=== PATIENT | female | born 1965 ===

== ENCOUNTER 2016-12-18 20:57 | Emergency (ER) | payer MEDICAID, OTHER ==
[2016-12-18 21:02] VITALS: BP 145/90; PULSE 92; RESP 16; TEMP 98.1; O2SAT 98
--- NOTE | 2016-12-18 21:39 | ED PDOC ---
HPI: CCC, URI, Sore Throat Time Seen by Provider: 12/18/16 21:00 Chief Complaint (Nursing): ENT Problem Chief Complaint (Provider): B/l ear pain History Per: Patient History/Exam Limitations: no limitations Onset/Duration Of Symptoms: Days Current Symptoms Are (Timing): Still Present Location Of Pain: Ear(s) Additional History Per: Patient Additional Complaint(s): The patient is a 50yo female, past medical history of brain cancer, presents to the ED for evaluation of b/l ear pain, worse in her left ear for the past day. Patient denies any associated fever, chills. She states she has not visited her PCP for her symptoms. Patient offers no additional medical complaints. Past Medical History Reviewed: Historical Data, Nursing Documentation, Vital Signs Vital Signs: Last Vital Signs Temp 98.1 F 12/18/16 21:00 Pulse 92 H 12/18/16 21:00 Resp 16 12/18/16 21:00 BP 145/90 12/18/16 21:00 Pulse Ox 98 12/18/16 21:52 - Medical History PMH: Migraine - Surgical History Surgical History: No Surg Hx - Family History Family History: States: Unknown Family Hx - Home Medications Home Medications: Ambulatory Orders Medication Instructions Recorded Ciprofloxacin/Hydrocortisone 10 ml XX BID 7 Days 12/18/16 [Cipro Hc 0.2%-1% 10 ml] - Allergies Allergies/Adverse Reactions: Allergies Allergy/AdvReac Type Severity Reaction Status Date / Time No Known Allergies Allergy Verified 12/18/16 21:02 Review of Systems ROS Statement: Except As Marked, All Systems Reviewed And Found Negative Constitutional: Negative for: Fever, Chills ENT: Positive for: Ear Pain (b/l) Physical Exam - Reviewed Nursing Documentation Reviewed: Yes Vital Signs Reviewed: Yes - Physical Exam Appears: Positive for: Well, Non-toxic, No Acute Distress Head Exam: Positive for: ATRAUMATIC, NORMAL INSPECTION, NORMOCEPHALIC Skin: Positive for: Normal Color, Warm, DRY Eye Exam: Positive for: EOMI, Normal appearance, PERRL ENT: Positive for: TM Is/Are (clear b/l), Other (+ pinnal and tragal tug bilaterally) Neck: Positive for: Normal, Supple Cardiovascular/Chest: Positive for: Regular Rate, Rhythm Respiratory: Positive for: Normal Breath Sounds. Negative for: Respiratory Distress Neurologic/Psych: Positive for: Alert, Oriented. Negative for: Motor/Sensory Deficits - ECG O2 Sat by Pulse Oximetry: 98 (RA) Pulse Ox Interpretation: Normal Medical Decision Making Medical Decision Making: Time: 2114 Impression: Otitis externa Plan: -- Patient to be given prescriptions for antibiotic ear drops and informed to follow up with PCP. Stable for d/c home. Scribe Attestation: Documented by Lucretia Lynne acting as a scribe for GRU[facility] Salgado Provider Attestation: All medical record entries made by the Scribe were at my direction and personally dictated by me. I have reviewed the chart and agree that the record accurately reflects my personal performance of the history, physical exam, medical decision making, and the department course for this patient. I have also personally directed, reviewed, and agree with the discharge instructions and disposition. Disposition - Clinical Impression Clinical Impression: Otitis externa - Patient ED Disposition Is Patient to be Admitted: No - Disposition Disposition Time: 22:04 Condition: GOOD Prescriptions: Ciprofloxacin/Hydrocortisone [Cipro Hc 0.2%-1% 10 ml] 10 ml XX BID 7 Days Instructions: Otitis Externa (ED) Forms: [employer] (Icelandic)
== END 2016-12-18 21:54 | disposition home or self-care (01) ==
LOC: H.ER 20:57
DX: H60.90 Unspecified otitis externa, unspecified ear (principal)

== ENCOUNTER 2016-12-20 17:57 | Emergency (ER) | payer MEDICAID ==
[2016-12-20 18:29] VITALS: BP 151/71; PULSE 70; RESP 16; TEMP 98.2; O2SAT 99
--- NOTE | 2016-12-20 18:49 | ED PDOC ---
HPI: CCC, URI, Sore Throat Chief Complaint (Nursing): ENT Problem Chief Complaint (Provider): Bilateral ear pain History Per: Patient History/Exam Limitations: no limitations Onset/Duration Of Symptoms: Days (x1 year), Worse Since (x3 days) Current Symptoms Are (Timing): Still Present Location Of Pain: Ear(s) Associated Symptoms: Other (headache) Ear Symptoms: Bilateral: Ear Pain Additional Complaint(s): Brunilda Gomez is a 50 year old female, with a past medical history of migraines and tumor growth on right parietal, who presents to the emergency department complaining of bilateral ear pain onset for 1 year but symptoms worsen 3 days ago. Patient reports pain is associated with severe headache, and face swelling but denies any drainage from ear. She states she was seen by an ENT doctor, who gave her antibiotic drops for her ear but with no alleviation of symptoms. PMD: None provided. Past Medical History Reviewed: Historical Data, Nursing Documentation, Vital Signs Vital Signs: Last Vital Signs Temp 98.2 F 12/20/16 18:04 Pulse 70 12/20/16 18:04 Resp 16 12/20/16 18:04 BP 151/71 H 12/20/16 18:04 Pulse Ox 99 12/20/16 19:01 - Medical History PMH: Migraine - Family History Family History: States: Unknown Family Hx - Home Medications Home Medications: Ambulatory Orders Medication Instructions Recorded Ciprofloxacin/Hydrocortisone 10 ml XX BID 7 Days 12/18/16 [Cipro Hc 0.2%-1% 10 ml] Amoxicillin/Clavulanate [Augmentin 1 tab PO BID #14 tab 12/20/16 875 MG-125 MG] Methylprednisolone [Medrol Dose 4 mg PO DAILY #21 mg 12/20/16 Pack (21 tabs)] - Allergies Allergies/Adverse Reactions: Allergies Allergy/AdvReac Type Severity Reaction Status Date / Time No Known Allergies Allergy Verified 12/20/16 18:03 Review of Systems ROS Statement: Except As Marked, All Systems Reviewed And Found Negative ENT: Positive for: Ear Pain, Other (Face swelling). Negative for: Ear Discharge Physical Exam - Reviewed Nursing Documentation Reviewed: Yes Vital Signs Reviewed: Yes - Physical Exam Appears: Positive for: Well, Non-toxic, No Acute Distress Head Exam: Positive for: ATRAUMATIC, NORMAL INSPECTION, NORMOCEPHALIC Skin: Positive for: Normal Color, Warm, Dry Eye Exam: Positive for: Normal appearance ENT: Positive for: Other (b/l ear and canal swelling. Pinna tenderness and swelling on left side anteriorly. Significant mastoid tenderness on left side more than right. ) Neck: Positive for: Normal Respiratory: Positive for: Normal Breath Sounds. Negative for: Respiratory Distress Neurologic/Psych: Positive for: Alert, Oriented - Laboratory Results Result Diagrams: 12/20/16 18:53 12/20/16 18:53 - ECG O2 Sat by Pulse Oximetry: 99 (RA) Pulse Ox Interpretation: Normal Medical Decision Making Medical Decision Making: Initial Impression: Initial Plan: --Mastoid w/ contrast [CT] --Maxillofacial w/ contrast [CT] --Comp Metabolic Panel --Urine --CBC w/ differential --reevaluation CT shows: FINDINGS: Sella: Unremarkable. Mastoid air cells: Minimal fluid within LEFT mastoid. Auditory system: Soft tissue thickening along external auditory canal. Fluid within LEFT middle ear cavity. Bones/joints: No acute fracture. No definite cortical destruction. Soft tissues: Unremarkable. IMPRESSION: 1. Findings compatible with otitis media/otitis externa/early mastoiditis. 2. Incidental/non-acute findings are described abo Pt givne Rocephin IV in ED Pt with stable VS in ED, no acute elevation of WBC and unremarkable CMP. Pt will need to f.u with ENT for chronic otitis and will be d.c on augmenting for ear infection and ofloxacin. Pt will be given medrol dose pack. at d.c pt stable Scribe Attestation: Documented by Fredrick Zuinga, acting as a scribe for Nadege LOMBARDO. Provider Scribe Attestation: All medical record entries made by the Scribe were at my direction and personally dictated by me. I have reviewed the chart and agree that the record accurately reflects my personal performance of the history, physical exam, medical decision making, and the department course for this patient. I have also personally directed, reviewed, and agree with the discharge instructions and disposition. Disposition - Clinical Impression Clinical Impression: Otitis externa, Otitis media - Patient ED Disposition Is Patient to be Admitted: No Counseled Patient/Family Regarding: Studies Performed, Diagnosis, Need For Followup, Rx Given - Disposition Referrals: [facility] [Outside] [facility] [Outside] [facility] [Provider Group] Disposition: Routine/Home Disposition Time: 22:47 Condition: STABLE Prescriptions: Amoxicillin/Clavulanate [Augmentin 875 MG-125 MG] 1 tab PO BID #14 tab Methylprednisolone [Medrol Dose Pack (21 tabs)] 4 mg PO DAILY #21 mg Instructions: Mastoiditis (ED) Forms: [employer] (Belarusian)
[2016-12-20 19:04] LABS: BASO % 0.6 % (0.0-2.0); EOS # 0.1 K/uL (0.0-0.7); EOS % 1.2 % (0.0-4.0); HEMOGLOBIN 14.2 g/dL (12.0-16.0); LYMPH # 1.5 K/uL (1.0-4.3); LYMPH % 17.7 % (20.0-40.0); MEAN CELL VOLUME 90.1 fl (81.0-99.0); MEAN CORPUSCULAR HEMOGLOBIN 31.1 pg (27.0-31.0); MEAN CORPUSCULAR HGB CONC 34.6 g/dL (33.0-37.0); MEAN PLATELET VOLUME 10.4 fl (7.2-11.7); MONO # 0.5 K/uL (0.0-0.8); MONO % 6.1 % (0.0-10.0); NEUT # 6.3 K/uL (1.8-7.0); NEUT % 74.4 % (50.0-75.0); NRBC % 0.1 % (0.0-0.0); RBC 4.55 Mil/uL (3.80-5.20); RED CELL DISTRIBUTION WIDTH 13.3 % (11.5-14.5); WHITE BLOOD COUNT 8.4 K/uL (4.8-10.8)
[2016-12-20 19:26] LABS: ALB/GLOB RATIO 1.2 (1.0-2.1); ALBUMIN 4.4 g/dL (3.5-5.0); ALT/SGPT 42 U/L (9-52); AST/SGOT 29 U/L (14-36); BLOOD UREA NITROGEN 18 mg/dl (7-17); CALCIUM 9.2 mg/dL (8.4-10.2); GFR AFRICAN-AMERICAN > 60; GFR NON-AFRICAN AMERICAN > 60
[2016-12-20] MEDS ORDERED: Iohexol 300 100 ML IJ ONE (19:50)
[2016-12-20] MEDS ORDERED: Sodium Chloride 0.9% 50 ML IV ONE (19:50)
--- NOTE | 2016-12-20 21:22 | CT ---
EXAM: CT Orbits, Sella, Posterior Fossa or Auditory System Intravenous Contrast CLINICAL HISTORY: 50 years old, female; Pain; Other: Left ear pain; Additional info: Ear swelling mastoid tender TECHNIQUE: Axial computed tomography images of the orbits, sella, posterior fossa or auditory system with intravenous contrast. All CT scans at this facility use one or more dose reduction techniques, viz.: automated exposure control; ma/kV adjustment per patient size (including targeted exams where dose is matched to indication; i.e. head); or iterative reconstruction technique. Coronal and sagittal reformatted images were created and reviewed. CONTRAST: 50 mL of omnipaque administered intravenously. COMPARISON: No relevant prior studies available. FINDINGS: Sella: Unremarkable. Mastoid air cells: Minimal fluid within LEFT mastoid. Auditory system: Soft tissue thickening along external auditory canal. Fluid within LEFT middle ear cavity. Bones/joints: No acute fracture. No definite cortical destruction. Soft tissues: Unremarkable. IMPRESSION: 1. Findings compatible with otitis media/otitis externa/early mastoiditis. 2. Incidental/non-acute findings are described above.
--- NOTE | 2016-12-20 21:27 | CT ---
EXAM: CT Maxillofacial With Intravenous Contrast CLINICAL HISTORY: 50 years old, female; Pain; Face pain; Additional info: Swelling to left side of face TECHNIQUE: Axial computed tomography images of the face with intravenous contrast. All CT scans at this facility use one or more dose reduction techniques, viz.: automated exposure control; ma/kV adjustment per patient size (including targeted exams where dose is matched to indication; i.e. head); or iterative reconstruction technique. Coronal and sagittal reformatted images were created and reviewed. CONTRAST: 50 mL of omnipaque administered intravenously. COMPARISON: No relevant prior studies available. FINDINGS: Bones/joints: No acute fracture. No definite cortical destruction. Soft tissues: Unremarkable. Orbits: Unremarkable as visualized. Sinuses: Unremarkable. No air-fluid levels. Mastoid air cells: Minimal fluid within LEFT mastoid. Auditory system: Fluid within LEFT middle ear cavity. Soft tissue thickening along LEFT external auditory canal. Oropharynx: Torus palatinus. No significant tonsillar enlargement. IMPRESSION: 1. Findings compatible with otitis media/otitis externa/early mastoiditis. 2. Incidental/non-acute findings are described above.
[2016-12-20] MEDS ORDERED: cefTRIAXone (Rocephin) 1 gm Inj ONE (21:45)
== END 2016-12-20 23:04 | disposition home or self-care (01) ==
LOC: H.ER 17:57
DX: H60.93 Unspecified otitis externa, bilateral (principal)

== ENCOUNTER 2017-07-10 14:28 | Observation (INO) | payer MEDICAID ==
--- NOTE | 2017-07-10 16:13 | ED PDOC ---
HPI: Headache Time Seen by Provider: 07/10/17 15:47 Chief Complaint (Nursing): Headache Chief Complaint (Provider): Headache History Per: Patient History/Exam Limitations: no limitations Onset/Duration Of Symptoms: Days (x 5) Additional Complaint(s): Brunilda is a 51 y/o female with a history of headaches and a meningioma of the brain who presents to the ED complaining of a headache and dizziness that started 5 days ago. Patient states that the headache came on gradually and has gotten progressively worse since onset. She has associated lightheadedness and intermittent vomiting, but denies difficulty walking, numbness, weakness, vision change, photophobia, or fever. Patient gets regular MRIs every 6 months since diagnosis of her meningioma. She states she has had similar headaches in the past but this one is stronger, though not the worst of her life and not sudden. She has been taking advil for the pain which provides some, but not complete, relief. PMD: [facility] NIHSS Stroke Scale - Date/Time Evaluation Performed Date Performed: 07/11/17 Time Performed: 15:55 - How Severe is the Stroke Level of Consciousness: 0=Alert LOC to Questions: 0=Both comments correct LOC to commands: 0=Obeys both correctly Best Gaze: 0=Normal Visual: 0=No visual loss Facial: 0=Normal Motor Arm - Left: 0=No drift Motor Arm - Right: 0=No drift Motor Leg - Left: 0=No drift Motor Leg - Right: 0=No drift Limb Ataxia: 0=Absent Sensory: 0=Normal Best Language: 0=No aphasia Dysarthia: 0=Normal articulation Extinction & Inattention (Neglect): 0=Normal, no object Score: 0 Severity Of Stroke: 0 = No Stroke Past Medical History Reviewed: Historical Data, Nursing Documentation, Vital Signs Vital Signs: Last Vital Signs Temp 97 F L 07/10/17 14:35 Pulse 75 07/10/17 14:35 Resp 16 07/10/17 14:35 BP 132/73 07/10/17 14:35 Pulse Ox 97 07/10/17 14:35 - Medical History PMH: Migraine Other PMH: Meningioma brain - Surgical History Surgical History: No Surg Hx - Family History Family History: States: Unknown Family Hx - Social History Current smoker - smoking cessation education provided: No Alcohol: None Drugs: Denies - Home Medications Home Medications: Ambulatory Orders Medication Instructions Recorded Aspirin 325 mg PO DAILY #30 tab 07/11/17 Atorvastatin [Lipitor] 10 mg PO DAILY #30 tab 07/11/17 Dexamethasone [Decadron] 1 mg PO DAILY #14 tab 07/11/17 - Allergies Allergies/Adverse Reactions: Allergies Allergy/AdvReac Type Severity Reaction Status Date / Time No Known Allergies Allergy Verified 07/10/17 14:34 Review of Systems ROS Statement: Except As Marked, All Systems Reviewed And Found Negative Constitutional: Negative for: Fever Eyes: Negative for: Vision Change, Other (photophobia) Gastrointestinal: Positive for: Vomiting Neurological: Positive for: Headache, Dizziness, Other (lightheadedness). Negative for: Weakness, Numbness, Incoordination Physical Exam - Reviewed Nursing Documentation Reviewed: Yes Vital Signs Reviewed: Yes - Physical Exam Appears: Positive for: Well, Non-toxic, No Acute Distress Head Exam: Positive for: ATRAUMATIC, NORMAL INSPECTION, NORMOCEPHALIC Skin: Positive for: Normal Color, Warm, Dry. Negative for: Rash Eye Exam: Positive for: Normal appearance, EOMI, PERRL. Negative for: Nystagmus ENT: Positive for: Normal ENT Inspection Neck: Positive for: Normal, Painless ROM, Supple Cardiovascular/Chest: Positive for: Regular Rate, Rhythm. Negative for: Murmur Respiratory: Positive for: Normal Breath Sounds. Negative for: Respiratory Distress Gastrointestinal/Abdominal: Positive for: Normal Exam, Soft. Negative for: Tenderness Back: Positive for: Normal Inspection. Negative for: L CVA Tenderness, R CVA Tenderness, Vertebral Tenderness Extremity: Positive for: Normal ROM. Negative for: Pedal Edema, Deformity Neurologic/Psych: Positive for: Alert, Oriented. Negative for: Motor/Sensory Deficits - Laboratory Results Result Diagrams: 07/11/17 04:50 07/11/17 04:50 - ECG O2 Sat by Pulse Oximetry: 97 (RA) Pulse Ox Interpretation: Normal Medical Decision Making Medical Decision Making: Time: 16:14 Initial Impression: Headache; Differentials include migraine, headache related to meningioma mass effect, intracranial bleeding Initial Plan: --CT Head w/o Contrast --EKG --BMP --CBC --Reglan --Toradol --Decadron Time: 17:00 --Patient transferred to Dr. Cary pending CT Head, labs, and reevaluation. Scribe Attestation: Documented by Fabian Christensen, acting as a scribe for Dr. Rosalino Mccormack MD. Provider Scribe Attestation: All medical record entries made by the Scribe were at my direction and personally dictated by me. I have reviewed the chart and agree that the record accurately reflects my personal performance of the history, physical exam, medical decision making, and the department course for this patient. I have also personally directed, reviewed, and agree with the discharge instructions and disposition. Disposition - Clinical Impression Clinical Impression: CVA (cerebral vascular accident) - Patient ED Disposition Is Patient to be Admitted: Transfer of Care Counseled Patient/Family Regarding: Studies Performed, Diagnosis - Disposition Disposition: Transfer of Care Disposition Time: 17:00 Condition: STABLE Patient Signed Over To: Aly Cary Handoff Comments: pending CT head rTPA Inclusion/Exclusion - Refusal of Treatment Patient Refused Treatment: No - Inclusion Criteria for Altepase Patient is 18 years or Older: Yes Clinical DX Ischemic Stroke Cause Neurological Deficit: No Time of Onset Established Less Than 270 Mins Before TX Begin: No Risk/Benefit Discussed With Patient/Family Member Present: No
[2017-07-10] MEDS ORDERED: Sodium Chloride 0.9% 1,000 ML IV STA ×3 (16:15→21:20)
[2017-07-10 17:45] LABS: BASO % 0.7 % (0.0-2.0); EOS # 0.1 K/uL (0.0-0.7); EOS % 1.7 % (0.0-4.0); HEMOGLOBIN 14.8 g/dL (12.0-16.0); LYMPH # 1.6 K/uL (1.0-4.3); MEAN CELL VOLUME 91.2 fl (81.0-99.0); MEAN CORPUSCULAR HEMOGLOBIN 31.4 pg (27.0-31.0); MEAN CORPUSCULAR HGB CONC 34.4 g/dL (33.0-37.0); MEAN PLATELET VOLUME 10.5 fl (7.2-11.7); MONO # 0.3 K/uL (0.0-0.8); MONO % 4.9 % (0.0-10.0); NEUT % 65.7 % (50.0-75.0); NRBC % 0.6 % (0.0-0.0); RBC 4.73 Mil/uL (3.80-5.20); RED CELL DISTRIBUTION WIDTH 13.5 % (11.5-14.5); WHITE BLOOD COUNT 6.1 K/uL (4.8-10.8)
[2017-07-10 17:47] LABS: BLOOD UREA NITROGEN 19 mg/dl (7-17); CALCIUM 9.3 mg/dL (8.4-10.2); GFR AFRICAN-AMERICAN > 60; GFR NON-AFRICAN AMERICAN > 60
--- NOTE | 2017-07-10 17:56 | CT ---
PROCEDURE: CT HEAD WITHOUT CONTRAST. HISTORY: headache COMPARISON: Unenhanced head CT 04/15/2011. TECHNIQUE: Axial computed tomography images were obtained through the head/brain without intravenous contrast. Radiation dose: Total exam DLP = 859.55 mGy-cm. This CT exam was performed using one or more of the following dose reduction techniques: Automated exposure control, adjustment of the mA and/or kV according to patient size, and/or use of iterative reconstruction technique. FINDINGS: HEMORRHAGE: No intracranial hemorrhage. BRAIN: Cytotoxic edema is a appreciated a subsegment of the lateral right frontal lobe compatible with an acute subacute brain infarction. Remaining brain parenchyma appears grossly within normal limits. Local mass effect is appreciated. No midline shift or crowding of the basilar cisterns. VENTRICLES: Unremarkable. No hydrocephalus. CALVARIUM: Unremarkable. PARANASAL SINUSES: Unremarkable as visualized. No significant inflammatory changes. MASTOID AIR CELLS: Unremarkable as visualized. No inflammatory changes. OTHER FINDINGS: None. IMPRESSION: Acute or subacute infarction right frontal lobe subsegment. Follow-up CT and MRI are advised. No intracranial hemorrhage appreciable. Findings discussed with Dr. Cary 07/10/2017 5:50 p.m..
--- NOTE | 2017-07-10 18:05 | ED PDOC ---
- Laboratory Results Result Diagrams: 07/10/17 17:24 07/10/17 17:24 - ECG O2 Sat by Pulse Oximetry: 97 (RA) Medical Decision Making Medical Decision Making: CT read by Dr. Ruiz as acute/subacute CVA lateral right frontal lobe. Pt with no deficits NIHSS 0. Sxs 5 days in duration. Discussed with Neuro Dr. Rodriguez, suggests CTA, ASA and admission for CVA eval. Disposition - Clinical Impression Clinical Impression: CVA (cerebral vascular accident) - POA Present On Arrival: None - Disposition Disposition: Admitted as In-Patient Disposition Time: 18:06 Condition: FAIR Forms: [employer] (Malagasy) NIHSS Stroke Scale - How Severe is the Stroke Level of Consciousness: 0=Alert LOC to Questions: 0=Both comments correct LOC to commands: 0=Obeys both correctly Best Gaze: 0=Normal Visual: 0=No visual loss Facial: 0=Normal Motor Arm - Left: 0=No drift Motor Arm - Right: 0=No drift Motor Leg - Left: 0=No drift Motor Leg - Right: 0=No drift Limb Ataxia: 0=Absent Sensory: 0=Normal Best Language: 0=No aphasia Dysarthia: 0=Normal articulation Extinction & Inattention (Neglect): 0=Normal, no object Score: 0
[2017-07-10] MEDS ORDERED: Sodium Chloride 0.9% 100 ML ONE (18:15)
[2017-07-10] MEDS ORDERED: Iodixanol 320 MG/ML 100 ML BOTTLE IV ONE (18:15)
[2017-07-10] MEDS ORDERED: Oxycodone/Acetaminophen 5/325 mg Tab PO PRN (21:26)
[2017-07-11 00:42] VITALS: RESP 18
--- NOTE | 2017-07-11 01:08 | PCM.RRT ---
TRANSPORTATION ATTENDANT Nurse Assessment - Situation TRANSPORTATION ATTENDANT Responder Arrival Time: 01:02 Location: [address] [place] [address] Room Number: H406-2 TRANSPORTATION ATTENDANT Called By: RN - IV IV Inserted during TRANSPORTATION ATTENDANT?: No - Respiratory Oxygen Delivery Method: Room Air Received Nebulizer Treatments: No Was the Patient Ventilated with Bag/Mask 100% O2?: No - Diagnostic Test Ordered EKG: No Chest X-Ray: No CT Scan: Yes (Head CT W/O CONTRAST) CPR started during TRANSPORTATION ATTENDANT?: No - Vital Signs Vital Signs: BP 131/74, HR 81, RR 18, TEMP 98.3, PULSE OX 98% ON RA - Time TRANSPORTATION ATTENDANT Ended Time TRANSPORTATION ATTENDANT Ended: 01:15 - Vital Signs at end of TRANSPORTATION ATTENDANT Vital Signs at end of TRANSPORTATION ATTENDANT: BP 127/70, HR 83, RR 17, TEMP 98.3 F, PULSE OX 100% ON RA - Recommendations TRANSPORTATION ATTENDANT Level of Care Recommendations: Remain in current setting I.Reason for TRANSPORTATION ATTENDANT - A) Acute Change in Patient: Subjective: TRANSPORTATION ATTENDANT LOCATION: [address] [place] [address], ROOM H406-2 TRANSPORTATION ATTENDANT reason: left arm numbness S: TRANSPORTATION ATTENDANT was call by pt's RN because pt has left arm numbness of 30 min duration. Upon arrival to TRANSPORTATION ATTENDANT, pt is awake, alert and oriented. Denies any weakness to extremities, numbness to face or weakness of arms. Denies chest pain, nausea or vomiting. O: General: comfortably lying in bed,not in acute distress. HEENT: ATNC Respiratory: CTA B/L, no wheezing Cardio: RRR, normal S1,S2 Neuro: CN II-XII grossly intact, speaks clearly, no dysarthria noted. No facial droop seen. Mild weakness to left upper extremity ( 4/5), right upper extremity (5/5) and B/L lower extremity 5/5. TRANSPORTATION ATTENDANT intervention: head CT w/o contrast Assessment: 51 yo female pmhx headache and meningioma admitted on 07/10/17 for evaluation of CVA, TRANSPORTATION ATTENDANT was called for new onset of left upper extremity numbness. Plan: head CT w/o contrast Stable vitals Continue to monitor in telemetry Pt already received aspirin 325 mg in ED, pt is on aspirin 325 mg and atorvastatin 10 mg by the primary team. Vitals at the end of TRANSPORTATION ATTENDANT: BP 127/70, HR 83, RR 16, TEMP 98.3 F, PULSE OX 100% ON RA TRANSPORTATION ATTENDANT leader: Dr. Lehman TRANSPORTATION ATTENDANT team: Residents: Dr. Goodman, pgy-2, Dr. Lind, pgy-1
--- NOTE | 2017-07-11 01:54 | CT ---
EXAM: CT Head Without Intravenous Contrast CLINICAL HISTORY: 51 years old, female; Signs and symptoms; Weakness, extremity; Left; Additional info: Left arm numbness and weakness TECHNIQUE: Axial computed tomography images of the head/brain without intravenous contrast. All CT scans at this facility use one or more dose reduction techniques, viz.: automated exposure control; ma/kV adjustment per patient size (including targeted exams where dose is matched to indication; i.e. head); or iterative reconstruction technique. Coronal and sagittal reformatted images were created and reviewed. Axial reformatted images were created and reviewed. COMPARISON: CT - ANGIOGRAPHY HEAD 2017-07-10 18:29 FINDINGS: Brain: Right posterior frontal hypodensity representing evolving subacute ischemic change. No hemorrhage. Ventricles: Unremarkable. No ventriculomegaly. Bones/joints: Unremarkable. No acute fracture. Soft tissues: Unremarkable. Sinuses: Unremarkable. No acute sinusitis. Mastoid air cells: Unremarkable. No mastoid effusion. IMPRESSION: 1. Right posterior frontal hypodensity representing evolving subacute ischemic change.There is no evidence of acute intracranial hemorrhage.
[2017-07-11] MEDS ORDERED: Sodium Chloride 0.9% 1,000 ML IV STA (02:22)
--- NOTE | 2017-07-11 02:26 | CP.PCM.PCO ---
Assessment/Plan - Assessment/Plan Assessment (Free Text): discussed case/events with Neuro Dr. Rodriguez Plan Maintain elevated BP, NS @ 150mls/hr Start Plavix Stat MRI ordered for morning Echo w bubble study ordered - Problems Patient Problems: Problem List (Active/Current) Problem Status Onset Code CVA (cerebral vascular accident) Acute I63.9
[2017-07-11 05:45] LABS: HEMOGLOBIN 14.2 g/dL (12.0-16.0); MEAN CELL VOLUME 89.8 fl (81.0-99.0); MEAN CORPUSCULAR HEMOGLOBIN 31.7 pg (27.0-31.0); MEAN CORPUSCULAR HGB CONC 35.3 g/dL (33.0-37.0); RBC 4.48 Mil/uL (3.80-5.20); RED CELL DISTRIBUTION WIDTH 13.4 % (11.5-14.5); WHITE BLOOD COUNT 6.9 K/uL (4.8-10.8)
[2017-07-11 05:58] LABS: ALB/GLOB RATIO 1.1 (1.0-2.1); ALBUMIN 3.9 g/dL (3.5-5.0); ALT/SGPT 47 U/L (9-52); AST/SGOT 31 U/L (14-36); BLOOD UREA NITROGEN 17 mg/dl (7-17); CALCIUM 9.3 mg/dL (8.4-10.2); GFR AFRICAN-AMERICAN > 60; GFR NON-AFRICAN AMERICAN > 60; HDL CHOLESTEROL 50 MG/DL (30-70)
[2017-07-11] MEDS ORDERED: Influenza Vaccine 18yr & older 0.5 ML/45 MCG SYR IM ONE (06:00)
[2017-07-11] MEDS ORDERED: Pneumococcal 23-Valent Vaccine IM ONE (06:00)
[2017-07-11 06:08] LABS: LDL CHOLESTEROL 52 mg/dL (0-129)
--- NOTE | 2017-07-11 07:40 | CARD ---
APPROVED REPORT EKG Measurement Heart [id number] <Conclusion> Normal sinus rhythm Normal ECG
--- NOTE | 2017-07-11 10:19 | MRI ---
PROCEDURE: MRI BRAIN WITHOUT CONTRAST HISTORY: CVA COMPARISON: Unenhanced head CT 07/11/2017. TECHNIQUE: Multiplanar, multisequence MR images of the brain were obtained without intravenous contrast enhancement. FINDINGS: HEMORRHAGE: None DWI: No evidence of an acute or early subacute infarction. Instead, CT pattern previously suspicious for possible infarct reveals T2 shine through effect rather than restricted diffusion. BRAIN PARENCHYMA: A posterior right frontal lesion measures 3.4 x 3.2 x 3.9 cm (transverse by anteroposterior by superoinferior dimensions). This involves white matter as well as sulci and given the pattern on diffusion-weighted imaging, this is highly suspicious for a glioma with limited possibility of infectious etiology. Further clinical correlation is advised. Contrast MRI is recommended for follow-up, though this may not narrow the differential diagnosis. Punctate long TR hyperintensities are infrequently appreciated at the bilateral frontal subcortical white matter which are nonspecific. Remainder of the brain is unremarkable VENTRICLES: Unremarkable. No hydrocephalus. CRANIUM: Unremarkable. ORBITS: Grossly unremarkable. PARANASAL SINUSES/MASTOIDS: Clear VASCULAR SYSTEM: Skull base flow voids intact. OTHER FINDINGS: None. IMPRESSION: Findings highly suspicious for 3.9 cm mass at the right frontoparietal junction as discussed above. No evidence of infarction as previously suspected prior head CT performed 07/10/2017. There is a limited possibility this could be of infectious or inflammatory etiology though this is not favored. Nonspecific punctate long TR hyperintensities are infrequently seen the bilateral frontal subcortical white matter of the corpus callosum and remaining brain are unremarkable. Consider follow-up contrast MRI.
--- NOTE | 2017-07-11 12:36 | CT ---
PROCEDURE: CT Angiography of the Brain. HISTORY: Headache infarct on CT COMPARISON: None available. TECHNIQUE: CT angiography of the intracranial and cervical arteries was performed. Coronal and sagittal maximum intensity projection reformated images were generated. Contrast Dose: Visipaque 320, 80 cc. Radiation dose:Total exam DLP = 1190.92 mGy-cm. This CT exam was performed using one or more of the following dose reduction techniques: Automated exposure control, adjustment of the mA and/or kV according to patient size, and/or use of iterative reconstruction technique. FINDINGS: INTERNAL CEREBRAL ARTERIES: Unremarkable. The skull base, petrous, cavernous and supraclinoid segments are bilaterally widely patent. ANTERIOR CEREBRAL ARTERIES: Unremarkable. A1 and A2 segments are widely patent. Smaller distal branches unremarkable, as visualized. MIDDLE CEREBRAL ARTERIES: Unremarkable. M1 and M2 segments are widely patent. Perisylvian branches grossly symmetric. POSTERIOR CIRCULATION: Basilar Artery: Unremarkable. Distal Vertebral Arteries: Unremarkable. Posterior Cerebral Arteries: Unremarkable. Posterior Inferior Cerebellar Arteries: Unremarkable. ANEURYSM/ VASCULAR MALFORMATIONS: None. OTHER FINDINGS: Lucency again seen at the right frontoparietal junction. IMPRESSION: No significant CT angiographic findings throughout the brain. Lucency again evident in the right frontal parietal junction as compared to prior unenhanced head CT 07/10/2017.
[2017-07-11 15:52] VITALS: BP 124/75; PULSE 70; TEMP 98.5; O2SAT 97
--- NOTE | 2017-07-12 07:16 | HP ---
HISTORY OF PRESENT ILLNESS: Ms. Gomez is a 51-year-old female with a history of headaches, who was admitted via a Emergency Room because of headaches and dizziness for 5 days prior to presentation. She was seen in the Emergency Room and admitted to rule out acute cerebrovascular accident. She has a history of meningioma since 2014 on the right side of the brain and has been followed up by [facility] and also has had multiple MRIs . She denies nausea or vomiting, but while being admitted to telemetry, she has to be responded by rapid response team because of her symptoms. In detail, she has been followed up by Neurology as an outpatient and by the [facility]. FAMILY HISTORY: Noncontributory. SOCIAL HISTORY: Does not smoke or drink. REVIEW OF SYSTEMS: Remarkable for persistent headaches and dizziness. PHYSICAL EXAMINATION: GENERAL: The patient is alert, oriented, appears to be much more comfortable at present. VITAL SIGNS: Blood pressure of 124/74, pulse of 90, respiratory rate is 18. She is afebrile. O2 sat 98% on room air. SKIN: Shows fair turgor. HEENT: Pupils are equal and reactive to light and accommodation. JVP is flat. Mouth shows fair hygiene. LUNGS: Clear. HEART: Regular. No murmurs or gallop. BREASTS: Normal. ABDOMEN: Soft and nontender. No organomegaly. EXTREMITIES: Shows no edema or cyanosis. CENTRAL NERVOUS SYSTEM: Grossly intact. LABORATORY DATA: Echocardiogram results pending. CT scan of the brain is remarkable for acute or subacute infarction, left frontal lobe subsegment. Followup CT angio, MRI requested. CT angio results remarkable for significant CT angiographic findings throughout the brain evidence in the right frontal parietal junction compared to prior on enhanced CT of . MRI of the brain is remarkable for a 3.9-cm mass at the right frontal parietal junction. EKG normal sinus rhythm. IMPRESSION: Headache and dizziness, probably secondary to right brain mass. According to the patient, this has been present since 2014 and she has been Neurology and neurosurgical followup was advised . She wants to go home and to be with her children. PLAN: Await Neurology evaluation to make a decision regarding discharge for intervention. The patient was awaiting Neurology evaluation before she will be going home. Bon Alvarez MD [facility] # [id number]
--- NOTE | 2017-07-12 10:44 | CARD ---
APPROVED REPORT EXAM: Two-dimensional and M-mode echocardiogram with Doppler and color Doppler. Other Information Quality : GoodRhythm : INDICATION CVA/TIA Echo Enhancing Agent Indication: Rule Out Septal Defect Agent/Amount Used: Agitated Saline 2D DIMENSIONS IVSd1.05 (0.7-1.1cm)LVDd4.46 (3.9-5.9cm) LVOT Diameter2.04 (1.8-2.4cm)PWd0.81 (0.7-1.1cm) IVSs1.18 (0.8-1.2cm)LVDs3.32 (2.5-4.0cm) FS (%) 25.5 %PWs0.95 (0.8-1.2cm) M-Mode DIMENSIONS Left Atrium (MM)2.92 (2.5-4.0cm)IVSd0.74 (0.7-1.1cm) Aortic Root3.06 (2.2-3.7cm)LVDd5.51 (4.0-5.6cm) Aortic Cusp Exc.1.85 (1.5-2.0cm)PWd0.91 (0.7-1.1cm) IVSs0.94 cmFS (%) 35 % LVDs3.61 (2.0-3.8cm)PWs1.05 cm Mitral Valve MV E Jdvuymee10.3cm/sMV DECEL [id number] A Ipikoplk82.5cm/s MV VVT81tzG/A ratio0.9MVA (PHT)3.63cm2 TDI Lateral E' Peak V12.87cm/sMedial E' Peak V7.01cm/sE/Lateral E'5.2 E/Medial E'9.6 Tricuspid Valve TR Peak Lxkmyjlo547bn/sRAP FQGBOAMO84keCjKH Peak Gr.22mmHg DAUK40xzNq LEFT VENTRICLE The left ventricle is normal size. There is normal left ventricular wall thickness. Left ventricle systolic function is normal. The Ejection Fraction is 60-65%. There is normal LV segmental wall motion. Transmitral Doppler flow pattern is Grade I-abnormal relaxation pattern. RIGHT VENTRICLE The right ventricle is normal size. There is normal right ventricular wall thickness. The right ventricular systolic function is normal. ATRIA The left atrium size is normal. The right atrium size is normal. The interatrial septum is intact with no evidence for an atrial septal defect. A bubble study did not show communication between RA and LA. AORTIC VALVE The aortic valve is normal in structure. No aortic regurgitation is present. There is no aortic valvular stenosis. MITRAL VALVE The mitral valve is normal in structure. There is no evidence of mitral valve prolapse. There is no mitral valve stenosis. There is no mitral valve regurgitation noted. TRICUSPID VALVE The tricuspid valve is normal in structure. There is trace tricuspid regurgitation. Right ventricular systolic pressure is estimated at 33 mmHg. There is mild pulmonary hypertension. PULMONIC VALVE The pulmonary valve is normal in structure. There is no pulmonic valvular regurgitation. GREAT VESSELS The aortic root is normal in size. The IVC is normal in size and collapses >50% with inspiration. PERICARDIAL EFFUSION The pericardium appears normal. <Conclusion> The left ventricle is normal size. There is normal left ventricular wall thickness. There is normal LV segmental wall motion. Left ventricle systolic function is normal. The Ejection Fraction is 60-65%. Transmitral Doppler flow pattern is Grade I-abnormal relaxation pattern.
== END 2017-07-11 16:57 | disposition home or self-care (01) ==
LOC: H.ER 14:28 → H.ERHOLD 18:06 → INTOOBSV 18:06 → H.TEL 20:56
PROVIDERS: ADMIT Internal Medicine Pulmonary Disease; ATTEND Internal Medicine Pulmonary Disease
DX: R51 Headache (principal); R42 Dizziness and giddiness; Z23 Encounter for immunization; D32.9 Benign neoplasm of meninges, unspecified; D32.0 Benign neoplasm of cerebral meninges
CPT/HCPCS: 36415; 70450; 70496; 70551; 80048; 80053; 80061; 81025; 85025; 85027; 90471; 90732; 93005; 93306; 96361; 96374; 96375; 97161; 97166; 99285; G0378; G8978; G8979; G8980; G8987; G8988; G8989; J1100; J1885; J2765; J7040; J8540; Q2035; Q9967

== ENCOUNTER 2017-08-30 10:14 | Inpatient (IN) | payer MEDICAID ==
[2017-08-30 12:27] VITALS: BMI 31.8
[2017-08-30] MEDS: Oxycodone/Acetaminophen 5/325 mg Tab PO PRN ×2 (15:56→21:34)
--- NOTE | 2017-08-30 19:17 | CP.PCM.CON ---
History of Present Illness - History of Present Illness History of Present Illness: Dr Lee PMR consultation on Brunilda Gomez, born 1965 who has been admitted to [facility] for acute inpatient rehabilitation following an admission at [facility]. + brain tumor with craniotomy on the right. + facial swelling, + left facial drop and Left HP UE>LE right UE/LE wnl She is left hand dominant Review of Systems - Constitutional Constitutional: absent: Anorexia, Chills - EENT Ears: absent: Decreased Hearing, Ear Discharge Nose/Mouth/Throat: absent: Nasal Congestion - Cardiovascular Cardiovascular: absent: Chest Pain - Respiratory Respiratory: absent: Dyspnea, Wheezing - Gastrointestinal Gastrointestinal: Constipation. absent: Abdominal Pain - Musculoskeletal Musculoskeletal: absent: Back Pain - Neurological Neurological: Focal Weakness. absent: Abnormal Hearing, Abnormal Movements - Psychiatric Psychiatric: Depression. absent: Anxiety Past Patient History - Past Medical History & Family History Past Medical History?: Yes - Past Social History Smoking Status: Former Smoker Alcohol: Social Drugs: Denies Home Situation {Lives}: With Family (+ steps) - CARDIAC Hx Hypercholesterolemia: Yes Hx Hypertension: Yes - NEUROLOGICAL HX Cerebrovascular Accident: Yes (07/21, no residual) Hx Dizziness: Yes Hx Migraine: Yes Other/Comment: Right Frontoparietal Benign Neoplasm - HEENT Other/Comment: Otitis Media - HEMATOLOGICAL/ONCOLOGICAL Hx Blood Disorders: Yes Hx AIDS: No Hx Human Immunodeficiency Virus (HIV): No Other/Comment: meningioma of brain - MUSCULOSKELETAL/RHEUMATOLOGICAL Hx Falls: No - PSYCHIATRIC Hx Anxiety: Yes Hx Substance Use: No - SURGICAL HISTORY Hx Surgeries: No Other/Comment: 08/26: Awake Craniotomy for resection of Right frontal lesion - ANESTHESIA Hx Anesthesia: Yes Hx Anesthesia Reactions: No Hx Malignant Hyperthermia: No Has any member of the family had a problem w/ anesthesia?: No Meds Allergies/Adverse Reactions: Allergies Allergy/AdvReac Type Severity Reaction Status Date / Time levetiracetam [From [facility]] AdvReac Mild TACHYCARDIA Verified 08/30/17 13:42 AND DIZZINESS - Medications Medications: Current Medications Dexamethasone (Decadron) 4 mg PO Q12 SIMA Stop: 08/30/17 21:01 Dexamethasone (Decadron) 2 mg PO Q12 SIMA Stop: 08/31/17 21:01 Dexamethasone (Decadron) 1 mg PO Q12 [facility]AM Stop: 09/01/17 21:01 Dexamethasone (Decadron) 1 mg PO DAILY [facility] Stop: 09/02/17 09:01 Docusate Sodium (Colace) 100 mg PO BID [facility] Last Admin: 08/30/17 16:56 Dose: 100 mg Enoxaparin Sodium (Lovenox) 40 mg SC DAILY [facility] PRN Reason: Protocol Famotidine (Pepcid) 20 mg PO BID [facility] Last Admin: 08/30/17 16:54 Dose: 20 mg Multivitamins/Minerals (Therapeutic-M Tab) 1 tab PO DAILY [facility] Oxycodone/Acetaminophen (Percocet 5/325 Mg Tab) 1 tab PO Q6 PRN PRN Reason: Pain, moderate (4-7) Stop: 09/02/17 13:56 Last Admin: 08/30/17 15:56 Dose: 1 tab Oxycodone/Acetaminophen (Percocet 5/325 Mg Tab) 2 tab PO Q6 PRN PRN Reason: Pain, severe (8-10) Stop: 09/02/17 13:56 Phenytoin Sodium (Dilantin) 100 mg PO Q8 [facility] Last Admin: 08/30/17 15:00 Dose: 100 mg Sennosides (Senokot Tab) 17.2 mg PO HS [facility] Physical Exam - Constitutional Appears: Non-toxic, No Acute Distress - Head Exam Head Exam: absent: ATRAUMATIC (right surgical site and facial swelling) - ENT Exam ENT Exam: Mucous Membranes Moist - Respiratory Exam Respiratory Exam: NORMAL BREATHING PATTERN - Cardiovascular Exam Cardiovascular Exam: REGULAR RHYTHM - GI/Abdominal Exam GI & Abdominal Exam: Normal Bowel Sounds. absent: Distended - Extremities Exam Extremities exam: Negative for: calf tenderness - Neurological Exam Neurological exam: Alert, Oriented x3 - Psychiatric Exam Psychiatric exam: Depressed, Flat Affect - Skin Skin Exam: Warm Results - Vital Signs Recent Vital Signs: Last Vital Signs Temp Pulse 85 08/30/17 16:52 Resp 20 08/30/17 14:17 BP 128/89 08/30/17 14:03 Pulse Ox 98 08/30/17 16:52 Assessment & Plan - Assessment and Plan (Free Text) Assessment: Right sided brain mass s/p craniotomy dense left HP UE>LE PT/OT to continue to help increase functional independence Team conference for d/c planning Pain: controlled Vascular: no evidence of DVT GI: No evidence of constipation or diarrhea Patient is an excellent acute rehabilitation candidate and will have focused pain management, wound care, PT, OT and recreational therapy to help facilitate a safe and appropriate d/c plan impairment code: 01.1
--- NOTE | 2017-08-30 19:32 | PCM.OPOC ---
Physiatry Overall Plan of Care - Overall Plan of Care Estimated Length of Stay in Weeks: 3 Rehab Impairment: Mobility, Gait, Balance, Coordination Etiologic Diagnosis: Other (brain surgery) Rehab/Medical Prognosis: Guarded - Anticipated Interventions Physical Therapy:: Yes Occupational Therapy:: Yes Speech Therapy:: No Recreational Therapy:: Yes - Therapy Goals Bed Mobility: Contact Guard Ambulation: Minimal Assistance Functional Positional Changes:: Contact Guard - Discharge Plan Identification of Barriers to Discharge: Home Situation Discharge Destination: Subacute
[2017-08-30] MEDS ORDERED: Oxycodone/Acetaminophen 5/325 mg Tab PO STA (21:41)
--- NOTE | 2017-08-31 08:06 | CP.PCM.HP ---
History of Present Illness - History of Present Illness History of Present Illness: [facility] pt had cva during or after procedure. there is a noticable left sided weakness, lle 4/5 lue 1/5. am labs ordered. pt states that she has not had bm since surgery. no abd pain, f/c, n/v/d. Present on Admission - Present on Admission Any Indicators Present on Admission: No Review of Systems - Neurological Neurological: As Per HPI, Paresthesias Past Patient History - Past Medical History & Family History Past Medical History?: Yes - Past Social History Smoking Status: Former Smoker Alcohol: Social Drugs: Denies Home Situation {Lives}: With Family (+ steps) - CARDIAC Hx Hypercholesterolemia: Yes Hx Hypertension: Yes - NEUROLOGICAL HX Cerebrovascular Accident: Yes (07/21, no residual) Hx Dizziness: Yes Hx Migraine: Yes Other/Comment: Right Frontoparietal Benign Neoplasm - HEENT Other/Comment: Otitis Media - HEMATOLOGICAL/ONCOLOGICAL Hx Blood Disorders: Yes Hx AIDS: No Hx Human Immunodeficiency Virus (HIV): No Other/Comment: meningioma of brain - MUSCULOSKELETAL/RHEUMATOLOGICAL Hx Falls: No - PSYCHIATRIC Hx Anxiety: Yes Hx Substance Use: No - SURGICAL HISTORY Hx Surgeries: No Other/Comment: 08/26: Awake Craniotomy for resection of Right frontal lesion - ANESTHESIA Hx Anesthesia: Yes Hx Anesthesia Reactions: No Hx Malignant Hyperthermia: No Has any member of the family had a problem w/ anesthesia?: No Meds Allergies/Adverse Reactions: Allergies Allergy/AdvReac Type Severity Reaction Status Date / Time levetiracetam [From [facility]] AdvReac Mild TACHYCARDIA Verified 08/30/17 13:42 AND DIZZINESS Physical Exam - Constitutional Appears: Well, Non-toxic, No Acute Distress - Head Exam Head Exam: ATRAUMATIC, NORMAL INSPECTION, NORMOCEPHALIC - Eye Exam Eye Exam: EOMI, Normal appearance, PERRL Pupil Exam: NORMAL ACCOMODATION, PERRL - ENT Exam ENT Exam: Mucous Membranes Moist, Normal Exam - Neck Exam Neck exam: Positive for: Normal Inspection - Respiratory Exam Respiratory Exam: Clear to Auscultation Bilateral, NORMAL BREATHING PATTERN - Cardiovascular Exam Cardiovascular Exam: REGULAR RHYTHM, RRR, +S1, +S2 - GI/Abdominal Exam GI & Abdominal Exam: Normal Bowel Sounds, Soft. absent: Tenderness - Extremities Exam Extremities exam: Positive for: normal capillary refill, normal inspection, pedal pulses present Additional comments: lue 1/5, lle 4/5 rue and rle 5/5 - Back Exam Back exam: FULL ROM, NORMAL INSPECTION - Neurological Exam Neurological exam: Abnormal Gait, Alert, CN II-XII Intact, Oriented x3, Reflexes Normal - Psychiatric Exam Psychiatric exam: Normal Affect, Normal Mood - Skin Skin Exam: Dry, Intact, Normal Color, Warm Results - Vital Signs Recent Vital Signs: Last Vital Signs Temp 97.7 F 08/31/17 07:33 Pulse 80 08/31/17 07:33 Resp 22 08/31/17 07:33 BP 133/81 08/31/17 07:33 Pulse Ox 96 08/31/17 07:33 Assessment & Plan (1) DVT prophylaxis Assessment and Plan: scd and ae hose lovenox Status: Acute (2) Constipation Assessment and Plan: refusing meds, will try prune juice Status: Acute (3) Brain tumor Assessment and Plan: s/p craniotomy, here for rehab cont meds, obtain all records from [facility] Status: Acute (4) CVA (cerebral vascular accident) Assessment and Plan: cont meds neuro consult pt/ot Status: Acute Decision To Admit - Pt Status Changed To: Hospital Disposition Of: Inpatient - Admit Certification Admit to Inpatient:: After my assessment, the patient will require hospitalization for at least two midnights. This is because of the severity of symptoms shown, intensity of services needed, and/or the medical risk in this patient being treated as an outpatient. - . Bed Request Type: Acute Rehab Admitting Physician: Donte Perez
[2017-08-31] MEDS: Enoxaparin 40 mg Syringe SC SCH (08:46)
[2017-08-31] MEDS: Oxycodone/Acetaminophen 5/325 mg Tab PO PRN ×3 (08:48→21:06)
[2017-08-31] MEDS: Multivitamin With Minerals Tab PO SCH (08:48)
[2017-08-31 12:28] LABS: MEAN CELL VOLUME 91.3 fl (81.0-99.0); MEAN CORPUSCULAR HEMOGLOBIN 32.2 pg (27.0-31.0); MEAN CORPUSCULAR HGB CONC 35.3 g/dL (33.0-37.0); RBC 4.35 Mil/uL (3.80-5.20); RED CELL DISTRIBUTION WIDTH 13.1 % (11.5-14.5); WHITE BLOOD COUNT 10.8 K/uL (4.8-10.8)
[2017-08-31 12:40] LABS: BLOOD UREA NITROGEN 20 mg/dl (7-17); CALCIUM 8.9 mg/dL (8.4-10.2); GFR AFRICAN-AMERICAN > 60; GFR NON-AFRICAN AMERICAN > 60
[2017-08-31] MEDS ORDERED: Magnesium Hydroxide Susp 30 ml UD PO ONE (19:20)
[2017-09-01] MEDS: Oxycodone/Acetaminophen 5/325 mg Tab PO PRN ×3 (03:58→16:16)
[2017-09-01] MEDS: Multivitamin With Minerals Tab PO SCH (09:10)
[2017-09-01] MEDS: Enoxaparin 40 mg Syringe SC SCH (09:12)
[2017-09-01] MEDS: Magnesium Oxide 400 mg Tab UD PO SCH ×2 (10:04→16:14)
--- NOTE | 2017-09-01 14:42 | CP.PCM.CON ---
History of Present Illness - History of Present Illness History of Present Illness: Neurology Consultation Note: Mrs. Gomez is a 51-year-old woman who is s/p craniotomy for tumor resection at [facility] on 08/26/17, and appears to have had a complication of ischemic stroke resulting in left side hemiplegia. She is now admitted for acute rehab. I was consulted to assist with the post-stroke and craniotomy management and care. She is currently on 1 mg of Decadron Q12, and was started on dilantin for seizure prophylaxis. She complains of memory deficits, left upper > lower extremity weakness, and headache. Review of Systems - Review of Systems All systems: reviewed and no additional remarkable complaints except Past Patient History - Past Medical History & Family History Past Medical History?: Yes - Past Social History Smoking Status: Former Smoker Alcohol: Social Drugs: Denies Home Situation {Lives}: With Family (+ steps) - CARDIAC Hx Hypercholesterolemia: Yes Hx Hypertension: Yes - NEUROLOGICAL HX Cerebrovascular Accident: Yes (07/21, no residual) Hx Dizziness: Yes Hx Migraine: Yes Other/Comment: Right Frontoparietal Benign Neoplasm - HEENT Other/Comment: Otitis Media - HEMATOLOGICAL/ONCOLOGICAL Hx Blood Disorders: Yes Hx AIDS: No Hx Human Immunodeficiency Virus (HIV): No Other/Comment: meningioma of brain - MUSCULOSKELETAL/RHEUMATOLOGICAL Hx Falls: No - PSYCHIATRIC Hx Anxiety: Yes Hx Substance Use: No - SURGICAL HISTORY Hx Surgeries: No Other/Comment: 08/26: Awake Craniotomy for resection of Right frontal lesion - ANESTHESIA Hx Anesthesia: Yes Hx Anesthesia Reactions: No Hx Malignant Hyperthermia: No Has any member of the family had a problem w/ anesthesia?: No Meds Allergies/Adverse Reactions: Allergies Allergy/AdvReac Type Severity Reaction Status Date / Time levetiracetam [From [facility]] AdvReac Mild TACHYCARDIA Verified 08/30/17 13:42 AND DIZZINESS - Medications Medications: Current Medications Dexamethasone (Decadron) 1 mg PO Q12 SIMA Stop: 09/01/17 21:01 Last Admin: 09/01/17 09:12 Dose: 1 mg Dexamethasone (Decadron) 1 mg PO DAILY [facility] Stop: 09/02/17 09:01 Docusate Sodium (Colace) 100 mg PO BID [facility] Last Admin: 09/01/17 09:11 Dose: 100 mg Enoxaparin Sodium (Lovenox) 40 mg SC DAILY [facility] PRN Reason: Protocol Last Admin: 09/01/17 09:12 Dose: 40 mg Famotidine (Pepcid) 20 mg PO BID [facility] Last Admin: 09/01/17 09:10 Dose: 20 mg Magnesium Oxide (Mag-Ox) 400 mg PO BID [facility] Last Admin: 09/01/17 10:04 Dose: 400 mg Multivitamins/Minerals (Therapeutic-M Tab) 1 tab PO DAILY [facility] Last Admin: 09/01/17 09:10 Dose: 1 tab Oxycodone/Acetaminophen (Percocet 5/325 Mg Tab) 1 tab PO Q6 PRN PRN Reason: Pain, moderate (4-7) Stop: 09/02/17 13:56 Last Admin: 08/31/17 17:32 Dose: 1 tab Oxycodone/Acetaminophen (Percocet 5/325 Mg Tab) 2 tab PO Q6 PRN PRN Reason: Pain, severe (8-10) Stop: 09/02/17 13:56 Last Admin: 09/01/17 10:04 Dose: 2 tab Phenytoin Sodium (Dilantin) 100 mg PO Q8 [facility] Last Admin: 09/01/17 06:47 Dose: 100 mg Sennosides (Senokot Tab) 17.2 mg PO HS [facility] Last Admin: 08/31/17 21:05 Dose: 17.2 mg Physical Exam - Head Exam Additional comments: Right craniotomy incision C/D/I - Neurological Exam Neurological exam: Abnormal Gait, CN II-XII Intact, Oriented x3 Additional comments: Reflexes are brisk and sensation to position is diminished on the left side. Left upper extremity is flaccid. Left lower extremity is antigravity with more strength distally than proximally. Right side is full in strength. NIHSS = 7 Results - Vital Signs Recent Vital Signs: Last Vital Signs Temp 97.7 F 09/01/17 08:14 Pulse 78 09/01/17 08:14 Resp 22 09/01/17 08:14 BP 112/75 09/01/17 08:14 Pulse Ox 98 09/01/17 08:14 - Labs Result Diagrams: 08/31/17 11:30 08/31/17 11:30 Assessment & Plan (1) Glioma of brain Assessment and Plan: S/P craniotomy, the patient is still at risk for seizures and has headache. I would like to start her on Depakote 500 mg BID and taper off of dilantin. This will be good seizure prophylaxis and will help her headaches as well. Status: Resolved Priority: Medium (2) CVA (cerebral vascular accident) Assessment and Plan: Will start aspirin 81 mg daily for secondary stroke prevention. Continue PT/OT per primary team. Status: Acute Priority: High
[2017-09-01] MEDS: Divalproex 500 mg DR(BID formulation) PO SCH (16:18)
[2017-09-01] MEDS ORDERED: Oxycodone/Acetaminophen 5/325 mg Tab PO PRN (18:07)
[2017-09-02] MEDS: Oxycodone/Acetaminophen 5/325 mg Tab PO PRN ×2 (03:28→20:50)
--- NOTE | 2017-09-02 08:06 | CP.PCM.PN ---
Subjective - Date & Time of Evaluation Date of Evaluation: 09/02/17 Time of Evaluation: 08:05 - Subjective Subjective: pt doing well, no f/c, n/v/d. still w/ constipation. lue 3/5, lle 4/5 doing exercises in bed at present. Objective - Vital Signs/Intake and Output Vital Signs (last 24 hours): Temp Pulse Resp BP Pulse Ox 98.2 F 81 20 112/68 98 09/01/17 21:00 09/01/17 21:00 09/01/17 21:00 09/01/17 21:00 09/01/17 21:00 - Medications Medications: Current Medications Aspirin (Aspirin Chewable) 81 mg PO DAILY [facility] Last Admin: 09/01/17 16:14 Dose: 81 mg Dexamethasone (Decadron) 1 mg PO DAILY [facility] Stop: 09/02/17 09:01 Divalproex Sodium (Depakote Dr(*Bid*)) 500 mg PO BID [facility] Last Admin: 09/01/17 16:18 Dose: 500 mg Docusate Sodium (Colace) 100 mg PO BID [facility] Last Admin: 09/01/17 16:14 Dose: 100 mg Enoxaparin Sodium (Lovenox) 40 mg SC DAILY [facility] PRN Reason: Protocol Last Admin: 09/01/17 09:12 Dose: 40 mg Famotidine (Pepcid) 20 mg PO BID [facility] Last Admin: 09/01/17 16:14 Dose: 20 mg Magnesium Oxide (Mag-Ox) 400 mg PO BID [facility] Last Admin: 09/01/17 16:14 Dose: 400 mg Metoclopramide HCl (Reglan) 10 mg PO DAILY [facility] Multivitamins/Minerals (Therapeutic-M Tab) 1 tab PO DAILY [facility] Last Admin: 09/01/17 09:10 Dose: 1 tab Oxycodone/Acetaminophen (Percocet 5/325 Mg Tab) 1 tab PO Q6 PRN PRN Reason: Pain, moderate (4-7) Stop: 09/04/17 18:07 Oxycodone/Acetaminophen (Percocet 5/325 Mg Tab) 2 tab PO Q6 PRN PRN Reason: Pain, severe (8-10) Stop: 09/04/17 18:08 Last Admin: 09/02/17 03:28 Dose: 2 tab Phenytoin Sodium (Dilantin) 100 mg PO Q8 [facility] Last Admin: 09/02/17 07:02 Dose: 100 mg Sennosides (Senokot Tab) 17.2 mg PO HS [facility] Last Admin: 09/01/17 21:34 Dose: 17.2 mg - Labs Labs: 08/31/17 11:30 08/31/17 11:30 - Constitutional Appears: Well, Non-toxic, No Acute Distress - Head Exam Head Exam: ATRAUMATIC, NORMAL INSPECTION, NORMOCEPHALIC - Eye Exam Eye Exam: EOMI, Normal appearance, PERRL Pupil Exam: NORMAL ACCOMODATION, PERRL - ENT Exam ENT Exam: Mucous Membranes Moist, Normal Exam - Neck Exam Neck Exam: Full ROM, Normal Inspection. absent: Lymphadenopathy - Respiratory Exam Respiratory Exam: Clear to Ausculation Bilateral, NORMAL BREATHING PATTERN - Cardiovascular Exam Cardiovascular Exam: REGULAR RHYTHM, RRR, +S1, +S2. absent: Murmur - GI/Abdominal Exam GI & Abdominal Exam: Soft, Normal Bowel Sounds. absent: Tenderness - Extremities Exam Extremities Exam: Full ROM, Normal Capillary Refill, Normal Inspection. absent : Joint Swelling, Pedal Edema - Back Exam Back Exam: NORMAL INSPECTION - Neurological Exam Neurological Exam: Abnormal Gait, Alert, Awake, CN II-XII Intact, Oriented x3 Neuro motor strength exam: Left Upper Extremity: 3, Right Upper Extremity: 5, Left Lower Extremity: 4, Right Lower Extremity: 5 - Psychiatric Exam Psychiatric exam: Normal Affect, Normal Mood - Skin Skin Exam: Dry, Intact, Normal Color, Warm Assessment and Plan (1) DVT prophylaxis Status: Acute (2) Constipation Status: Acute (3) Brain tumor Status: Acute (4) CVA (cerebral vascular accident) Status: Acute - Assessment and Plan (Free Text) Assessment: (1) DVT prophylaxis Assessment and Plan: scd and ae hose lovenox Status: Acute (2) Constipation Assessment and Plan: refusing meds, will try prune juice Status: Acute (3) Brain tumor Assessment and Plan: s/p craniotomy, here for rehab cont meds, obtain all records from [facility] Status: Acute (4) CVA (cerebral vascular accident) Assessment and Plan: cont meds neuro consult appriciated pt/ot depakote, asa Status: Acute
[2017-09-02] MEDS: Divalproex 500 mg DR(BID formulation) PO SCH ×2 (08:58→18:06)
[2017-09-02] MEDS: Magnesium Oxide 400 mg Tab UD PO SCH ×2 (08:58→18:06)
[2017-09-02] MEDS: Enoxaparin 40 mg Syringe SC SCH (08:58)
[2017-09-02] MEDS: Multivitamin With Minerals Tab PO SCH (08:59)
--- NOTE | 2017-09-02 10:23 | CP.PCM.PN ---
Subjective - Date & Time of Evaluation Date of Evaluation: 09/02/17 Time of Evaluation: 10:13 - Subjective Subjective: Ms. Gomez was seen and examined at the bedside. She is alert, oriented in all spheres. She claims of very mild right frontal headache, non-radiating. She denies any dizziness, lightheadedness, nausea, or vomiting. She is more cooperative today in comparison from yesterday. She has mild left side droop, left upper extremity flaccidity, left lower extremity weakness. She is able to raise minimally her left LLE. There was no untoward events overnight. Objective - Vital Signs/Intake and Output Vital Signs (last 24 hours): Temp Pulse Resp BP Pulse Ox 98.2 F 81 20 112/68 98 09/01/17 21:00 09/01/17 21:00 09/01/17 21:00 09/01/17 21:00 09/01/17 21:00 - Medications Medications: Current Medications Aspirin (Aspirin Chewable) 81 mg PO DAILY [facility] Last Admin: 09/02/17 08:57 Dose: 81 mg Divalproex Sodium (Depakote Dr(*Bid*)) 500 mg PO BID [facility] Last Admin: 09/02/17 08:58 Dose: 500 mg Docusate Sodium (Colace) 100 mg PO BID [facility] Last Admin: 09/02/17 08:57 Dose: 100 mg Enoxaparin Sodium (Lovenox) 40 mg SC DAILY [facility] PRN Reason: Protocol Last Admin: 09/02/17 08:58 Dose: 40 mg Famotidine (Pepcid) 20 mg PO BID [facility] Last Admin: 09/02/17 08:59 Dose: 20 mg Magnesium Oxide (Mag-Ox) 400 mg PO BID [facility] Last Admin: 09/02/17 08:58 Dose: 400 mg Metoclopramide HCl (Reglan) 10 mg PO DAILY@1130 [facility] Multivitamins/Minerals (Therapeutic-M Tab) 1 tab PO DAILY [facility] Last Admin: 09/02/17 08:59 Dose: 1 tab Oxycodone/Acetaminophen (Percocet 5/325 Mg Tab) 1 tab PO Q6 PRN PRN Reason: Pain, moderate (4-7) Stop: 09/04/17 18:07 Last Admin: 09/02/17 08:56 Dose: 1 tab Oxycodone/Acetaminophen (Percocet 5/325 Mg Tab) 2 tab PO Q6 PRN PRN Reason: Pain, severe (8-10) Stop: 09/04/17 18:08 Last Admin: 09/02/17 03:28 Dose: 2 tab Sennosides (Senokot Tab) 17.2 mg PO HS [facility] Last Admin: 09/01/17 21:34 Dose: 17.2 mg - Labs Labs: 08/31/17 11:30 08/31/17 11:30 - Constitutional Appears: No Acute Distress - Head Exam Head Exam: NORMAL INSPECTION - Neurological Exam Neurological Exam: Alert, Awake, Oriented x3 Neuro motor strength exam: Left Upper Extremity: 0, Right Upper Extremity: 5, Left Lower Extremity: 2/1, Right Lower Extremity: 5 Additional comments: She is alert, oriented, follows simple commands, sensation is asymmetrical. Assessment and Plan (1) CVA (cerebral vascular accident) Assessment & Plan: Case discussed with Dr. Rodriguez, continue all current medical, physical, occupational, and speech therapies. Recommend blood pressure control Status: Acute (2) Headache Assessment & Plan: Case discussed with Dr. Rodriguez, continue with depakote and discontinue dilantin since latest dilantin level is 3.3. Recommend to monitor the intensity of headache and seizure activity. If the headache persist, may repeat CT scan of the head without contrast. Status: Acute
[2017-09-02] MEDS ORDERED: Oxycodone/Acetaminophen 5/325 mg Tab PO ONE (13:18)
--- NOTE | 2017-09-02 17:48 | CP.PCM.PN ---
Subjective - Date & Time of Evaluation Date of Evaluation: 09/02/17 Time of Evaluation: 17:46 - Subjective Subjective: Patient seen in the room no BM yet to this point had a discussion with Brunilda and the nursing staff at this point will hold percocet pending a BM had refused other meds to have a BM but now agreed and will get Lactulose now and if no result in 1 hour will give a fleets She understood the rationale. had ambulated 10'. reduced facial swelling Objective - Vital Signs/Intake and Output Vital Signs (last 24 hours): Temp Pulse Resp BP Pulse Ox 97.7 F 86 20 114/66 96 09/02/17 10:00 09/02/17 10:00 09/02/17 10:00 09/02/17 10:00 09/02/17 10:00 - Medications Medications: Current Medications Aspirin (Aspirin Chewable) 81 mg PO DAILY [facility] Last Admin: 09/02/17 08:57 Dose: 81 mg Divalproex Sodium (Depakote Dr(*Bid*)) 500 mg PO BID [facility] Last Admin: 09/02/17 08:58 Dose: 500 mg Docusate Sodium (Colace) 100 mg PO BID [facility] Last Admin: 09/02/17 08:57 Dose: 100 mg Enoxaparin Sodium (Lovenox) 40 mg SC DAILY [facility] PRN Reason: Protocol Last Admin: 09/02/17 08:58 Dose: 40 mg Famotidine (Pepcid) 20 mg PO BID [facility] Last Admin: 09/02/17 08:59 Dose: 20 mg Magnesium Oxide (Mag-Ox) 400 mg PO BID [facility] Last Admin: 09/02/17 08:58 Dose: 400 mg Metoclopramide HCl (Reglan) 10 mg PO DAILY@1130 [facility] Last Admin: 09/02/17 12:16 Dose: 10 mg Multivitamins/Minerals (Therapeutic-M Tab) 1 tab PO DAILY [facility] Last Admin: 09/02/17 08:59 Dose: 1 tab Oxycodone/Acetaminophen (Percocet 5/325 Mg Tab) 1 tab PO Q6 PRN PRN Reason: Pain, moderate (4-7) Stop: 09/04/17 18:07 Last Admin: 09/02/17 08:56 Dose: 1 tab Oxycodone/Acetaminophen (Percocet 5/325 Mg Tab) 2 tab PO Q6 PRN PRN Reason: Pain, severe (8-10) Stop: 09/04/17 18:08 Last Admin: 09/02/17 03:28 Dose: 2 tab Sennosides (Senokot Tab) 17.2 mg PO HS [facility] Last Admin: 09/01/17 21:34 Dose: 17.2 mg - Labs Labs: 08/31/17 11:30 08/31/17 11:30
[2017-09-03 06:02] LABS: HEMOGLOBIN 13.1 g/dL (12.0-16.0); MEAN CELL VOLUME 91.8 fl (81.0-99.0); MEAN CORPUSCULAR HEMOGLOBIN 31.8 pg (27.0-31.0); MEAN CORPUSCULAR HGB CONC 34.6 g/dL (33.0-37.0); RBC 4.11 Mil/uL (3.80-5.20); RED CELL DISTRIBUTION WIDTH 13.5 % (11.5-14.5); WHITE BLOOD COUNT 6.3 K/uL (4.8-10.8)
[2017-09-03 06:26] LABS: BLOOD UREA NITROGEN 16 mg/dl (7-17); CALCIUM 8.8 mg/dL (8.4-10.2); GFR AFRICAN-AMERICAN > 60; GFR NON-AFRICAN AMERICAN > 60
[2017-09-03] MEDS ORDERED: Potassium Chloride 20 mEq ER Tab PO ONE (06:30)
[2017-09-03] MEDS: Enoxaparin 40 mg Syringe SC SCH (08:27)
[2017-09-03] MEDS: Magnesium Oxide 400 mg Tab UD PO SCH ×2 (08:28→16:51)
[2017-09-03] MEDS: Multivitamin With Minerals Tab PO SCH (08:28)
[2017-09-03] MEDS: Divalproex 500 mg DR(BID formulation) PO SCH ×2 (08:28→16:51)
[2017-09-03] MEDS: Oxycodone/Acetaminophen 5/325 mg Tab PO PRN ×2 (10:07→21:31)
--- NOTE | 2017-09-03 13:13 | PSY.TMCNF ---
Nursing - Vital Signs Vital Signs (Last 8 hours): Vital Signs 09/03/17 09:13 Temperature 99.1 F Pulse Rate 83 Respiratory 18 Rate Blood Pressure 135/95 H O2 Sat by Pulse 99 Oximetry Pain: 0 - Precautions: Precautions: Fall Prevention, Aspiration, Pressure Ulcer - Medications/Other Issues Comment: Pt is at high nutritional risk. Goals-. 1: Consume >75% of meals. 2 : Maintain wt within 2-3 lbs. of current wt. Follow-up assesment due by 2017. - Consults Comment: Dr. Chnug - Skin Incision Site: right perietal Dressing Status: Clean, Dry, Intact Incision: Mystic Intact Incision Line Treatment: Cleanse with Normal Saline - Toileting Toileting: Maximal Assistance - Bladder Management Bladder Pattern: Normal Voiding Method: Toilet, Bedpan Bladder Management: Maximal Assistance - Bowel Management Bowel Pattern: Normal Bowel Management: Maximal Assistance - Transfers Transfers: Maximal Assistance - ADL's ADL's: Maximal Assistance - Patient/Family Teaching Comments: N/A - Goals/Time Frame Comments: Pt was seen awake laying in bed in her room. Pt agreeable to participate in evaluation session at bedside. Pt was able to identify minimal leisure interests such as watching television and going online to play games and social media. 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 Pt reported, "L hand weakness and my leg is weak." Pt was encouraged to participate in leisure task at bedside; however, reported that she was fatigued. Pt's mood was stable-content with son present at bedside. - Provider Provider: Dr. Perez Physical Therapy - Bed Mobility Bed Mobility: Minimal Assistance - Transfers Wheelchair to Mat: Minimal Assistance, Moderate Assistance Sit to Stand: Minimal Assistance - Ambulation Level of Assistance: Moderate Assistance Distance (ft.): 20 Assistive Devices: Narrow base quad cane - Stair Negotiation Stairs: Level of Assistance: Not Tested - Standing Balance Static Stand: Minimal Assistance Dynamic Stand: Unable to assess/perform - Pain Management Techniques: Inactivity - Insight/Carryover Insight/Carryover: Fair - Patient/Family Education Comment: Pt education provided for increased safety awareness and proper techniques during functional mobility training. Education for CVA recovery and improtance of OOB activity. - Assessment/Plan Assessment: Pt participating in PT tx sessions focusing on BLE strengthening exercises, balance and endurance activities, and functional mobility training. Pt currently requires min A for bed mobility, min/mod A for transfers, mod A for ambulation short distances with NBQC. Pt will continue to benefit from skilled PT interventions to address deficits, reduce fall risk, and maximize funcitonal independence. Started pt on NMES to LLE, tolerating well. Pt frequently requests to be back to bed, constant education on improtance of OOB activity for CVA recovery. - Goals Timeframe: 3 weeks Goals: Sit < > supine mod I. Sit < > stand transfers with supervision. Pt will ambulate 150 ft with appropriate AD and supervision. Pt will ascend/ descend 4 stairs with handrail and supervision - Provider Therapist: Demetria Doe PT DPT License Number: [id number] Occupational Therapy - Arousal/Attention/Orientation Patient Orientation: Person - ADL/IADL Self Feeding: Supervision, Verbal Cues, Set-up Help Grooming: Verbal Cues, Set-up Help, Minimal Assistance, Moderate Assistance Bathing-Upper Extremity: Verbal Cues, Set-up Help, Moderate Assistance Bathing-Lower Extremity: Verbal Cues, Set-up Help, Maximum Assistance Dressing-Upper Extremity: Verbal Cues, Set-up Help, Maximum Assistance Dressing-Lower Extremity: Verbal Cues, Set-up Help, Moderate Assistance, Maximum Assistance - Sitting Balance Static Sitting: Supervision Dynamic Sitting: Contact Guard Assist - Transfers Wheelchair to Bed Transfers: Verbal Cues, Set-up Help, Minimal Assistance, Moderate Assistance Toilet Transfers: Verbal Cues, Set-up Help, Moderate Assistance - Wheelchair Management Level of Assistance: Minimal Assistance Distance (ft.): 100 - Upper Extremity Status Right Upper Extremity Comment: AROM is WFLS Left Upper Extremity Comment: PROM is WFLS, no AROM noted at this time. + sensation for light touch and deep pressure. +propiception - Pain Alleviating Techniques: Inactivity - Insight/Carryover Insight/Carryover: Fair - Patient/Family Education Comment: Pt education provided for increased safety awareness and proper techniques during functional mobility training. Education for CVA recovery and improtance of OOB activity. - Assessment/Plan Assessment: Pt participating in PT tx sessions focusing on BLE strengthening exercises, balance and endurance activities, and functional mobility training. Pt currently requires min A for bed mobility, min/mod A for transfers, mod A for ambulation short distances with NBQC. Pt will continue to benefit from skilled PT interventions to address deficits, reduce fall risk, and maximize funcitonal independence. Started pt on NMES to LLE, tolerating well. Pt frequently requests to be back to bed, constant education on improtance of OOB activity for CVA recovery. - Goals Timeframe: 3 weeks Goals: Sit < > supine mod I. Sit < > stand transfers with supervision. Pt will ambulate 150 ft with appropriate AD and supervision. 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 -mild oral dysphagia - Assessment Problem Solving Impairment: Mild Memory Impairment: Mild Dysphagia/Swallowing Impairment: Mild - Plan Assessment: Pt participating in PT tx sessions focusing on BLE strengthening exercises, balance and endurance activities, and functional mobility training. Pt currently requires min A for bed mobility, min/mod A for transfers, mod A for ambulation short distances with NBQC. Pt will continue to benefit from skilled PT interventions to address deficits, reduce fall risk, and maximize funcitonal independence. Started pt on NMES to LLE, tolerating well. Pt frequently requests to be back to bed, constant education on improtance of OOB activity for CVA recovery. - Provider Therapist: Virgie Vang License Number: [id number] Recreational Therapy - Participation Participation: Monitors His/Her Own Leisure Time - Attendance Attendance: 3-5 times per week - Activities Leisure Activities: Television - Socialization Level of Socialization: Initiates/interacts with caregivers but not with peer, Isolate by choice - Assessment Assessment/Plan: Pt participating in PT tx sessions focusing on BLE strengthening exercises, balance and endurance activities, and functional mobility training. Pt currently requires min A for bed mobility, min/mod A for transfers, mod A for ambulation short distances with NBQC. Pt will continue to benefit from skilled PT interventions to address deficits, reduce fall risk, and maximize funcitonal independence. Started pt on NMES to LLE, tolerating well. Pt frequently requests to be back to bed, constant education on improtance of OOB activity for CVA recovery. - Provider Therapist: Letty Johnson, DRY PLASTERER #[id number] Nutrition - Current Diet Current Diet/ Supplement/ Feedings: 2 gm Na diet, Ensure Clear BID (provides 400 kcal, 14 gm protein). - Appetite Percent Meal Consumed: 50-74% - Comments Comments: N/A - Assessment/Goals/Time Frame Assessment/Goals/Time Frame: Pt is at high nutritional risk. Goals-. 1: Consume >75% of meals. 2: Maintain wt within 2-3 lbs. of current wt. Follow- up assesment due by 09/06/2017. - Provider Provider: Pearl March MS, RD Case Management - Psychosocial Assessment Support Systems: Lives with 3 adult children -. Primary contact is daughter Christiane cell: [phone] Psychological Interventions/Needs: Pt is alert and oriented x3; requires encouragement at times to participate in therapy; Pt tearful when discussing condition - Psychology consulted Discharge Concerns: Pt has approximately 10 steps to enter and with flaccid left upper extremity; Per daughter and pt, pt's insurance terminated as of - will clarify with assurance senior manager insurance Patient/Family Meeting: CM met with pt and rehab team as well as rachel Grande with pt's consent Intervention/Goal/Outcome:: 1. D/C date to be determined; Plan: home with skilled homecare vs [facility] pending insurance 3. Emotional support and encouragement 4. LAD 09/05/17; Updates to be sent 09/05/17 5. Clarify insurance eligibility for discharge planning - Discharge Plan Discharge Plan: Home with significant other/family, Home with services Home Services: Refer to skilled homecare vs [facility] Comment: Pending insurance clarification - Provider Provider: JAI Olson, BUTTER PRODUCTION SUPERVISOR License Number: [id number] Rehabilitation Plan - Discharge Plan Estimated Date of Discharge: 09/16/17 Discharge to: Home
--- NOTE | 2017-09-03 13:31 | CP.PCM.PN ---
Subjective - Date & Time of Evaluation Date of Evaluation: 09/03/17 Time of Evaluation: 13:30 - Subjective Subjective: Patient seen in room looks better each day dense left UE plegia discussed importance of remaining motivated and working hard she understood continue current care Objective - Vital Signs/Intake and Output Vital Signs (last 24 hours): Temp Pulse Resp BP Pulse Ox 99.1 F 83 18 135/95 H 99 09/03/17 09:13 09/03/17 09:13 09/03/17 09:13 09/03/17 09:13 09/03/17 09:13 - Medications Medications: Current Medications Aspirin (Aspirin Chewable) 81 mg PO DAILY [facility] Last Admin: 09/03/17 08:28 Dose: 81 mg Divalproex Sodium (Depakote Dr(*Bid*)) 500 mg PO BID [facility] Last Admin: 09/03/17 08:28 Dose: 500 mg Docusate Sodium (Colace) 100 mg PO BID [facility] Last Admin: 09/03/17 08:27 Dose: 100 mg Enoxaparin Sodium (Lovenox) 40 mg SC DAILY [facility] PRN Reason: Protocol Last Admin: 09/03/17 08:27 Dose: 40 mg Famotidine (Pepcid) 20 mg PO BID [facility] Last Admin: 09/03/17 08:27 Dose: 20 mg Magnesium Oxide (Mag-Ox) 400 mg PO BID [facility] Last Admin: 09/03/17 08:28 Dose: 400 mg Metoclopramide HCl (Reglan) 10 mg PO DAILY@1130 [facility] Last Admin: 09/03/17 12:23 Dose: 10 mg Multivitamins/Minerals (Therapeutic-M Tab) 1 tab PO DAILY [facility] Last Admin: 09/03/17 08:28 Dose: 1 tab Oxycodone/Acetaminophen (Percocet 5/325 Mg Tab) 1 tab PO Q6 PRN PRN Reason: Pain, moderate (4-7) Stop: 09/04/17 18:07 Last Admin: 09/02/17 08:56 Dose: 1 tab Oxycodone/Acetaminophen (Percocet 5/325 Mg Tab) 2 tab PO Q6 PRN PRN Reason: Pain, severe (8-10) Stop: 09/04/17 18:08 Last Admin: 09/03/17 10:07 Dose: 2 tab Sennosides (Senokot Tab) 17.2 mg PO HS [facility] Last Admin: 09/02/17 21:43 Dose: Not Given - Labs Labs: 09/03/17 05:15 09/03/17 05:15
[2017-09-03] MEDS: Hydrogen Peroxide 237 ML SOL TP SCH (16:51)
[2017-09-04] MEDS: Hydrogen Peroxide 237 ML SOL TP SCH ×2 (06:29→17:27)
--- NOTE | 2017-09-04 08:19 | CP.PCM.PN ---
Subjective - Date & Time of Evaluation Date of Evaluation: 09/04/17 Time of Evaluation: 07:15 - Subjective Subjective: pt doing well. no f/c, n/v/d. pt remains as assessed. doing well w/ pt/ot. has had bm Objective - Vital Signs/Intake and Output Vital Signs (last 24 hours): Temp Pulse Resp BP Pulse Ox 98.4 F 84 20 109/60 97 09/03/17 20:20 09/03/17 20:20 09/03/17 20:20 09/03/17 20:20 09/03/17 20:20 - Medications Medications: Current Medications Aspirin (Aspirin Chewable) 81 mg PO DAILY [facility] Last Admin: 09/03/17 08:28 Dose: 81 mg Divalproex Sodium (Depakote Dr(*Bid*)) 500 mg PO BID [facility] Last Admin: 09/03/17 16:51 Dose: 500 mg Docusate Sodium (Colace) 100 mg PO BID [facility] Last Admin: 09/03/17 16:50 Dose: 100 mg Enoxaparin Sodium (Lovenox) 40 mg SC DAILY [facility] PRN Reason: Protocol Last Admin: 09/03/17 08:27 Dose: 40 mg Famotidine (Pepcid) 20 mg PO BID [facility] Last Admin: 09/03/17 16:51 Dose: 20 mg Hydrogen Peroxide (Hydrogen Peroxide 237ml) 1 ml TP BID@0600,1700 [facility] Last Admin: 09/04/17 06:29 Dose: 1 ml Magnesium Oxide (Mag-Ox) 400 mg PO BID [facility] Last Admin: 09/03/17 16:51 Dose: 400 mg Metoclopramide HCl (Reglan) 10 mg PO DAILY@1130 [facility] Last Admin: 09/03/17 12:23 Dose: 10 mg Multivitamins/Minerals (Therapeutic-M Tab) 1 tab PO DAILY [facility] Last Admin: 09/03/17 08:28 Dose: 1 tab Oxycodone/Acetaminophen (Percocet 5/325 Mg Tab) 1 tab PO Q6 PRN PRN Reason: Pain, moderate (4-7) Stop: 09/07/17 18:07 Last Admin: 09/02/17 08:56 Dose: 1 tab Oxycodone/Acetaminophen (Percocet 5/325 Mg Tab) 2 tab PO Q6 PRN PRN Reason: Pain, severe (8-10) Stop: 09/07/17 18:08 Last Admin: 09/03/17 21:31 Dose: 2 tab Sennosides (Senokot Tab) 17.2 mg PO HS [facility] Last Admin: 09/03/17 21:30 Dose: 17.2 mg - Labs Labs: 09/03/17 05:15 09/03/17 05:15 - Constitutional Appears: Well, Non-toxic, No Acute Distress - Head Exam Head Exam: ATRAUMATIC, NORMAL INSPECTION, NORMOCEPHALIC - Eye Exam Eye Exam: EOMI, Normal appearance, PERRL Pupil Exam: NORMAL ACCOMODATION, PERRL - ENT Exam ENT Exam: Mucous Membranes Moist, Normal Exam - Neck Exam Neck Exam: Full ROM, Normal Inspection. absent: Lymphadenopathy - Respiratory Exam Respiratory Exam: Clear to Ausculation Bilateral, NORMAL BREATHING PATTERN - Cardiovascular Exam Cardiovascular Exam: REGULAR RHYTHM, RRR, +S1, +S2. absent: Murmur - GI/Abdominal Exam GI & Abdominal Exam: Soft, Normal Bowel Sounds. absent: Tenderness - Extremities Exam Extremities Exam: Full ROM, Normal Capillary Refill, Normal Inspection. absent : Joint Swelling, Pedal Edema - Back Exam Back Exam: NORMAL INSPECTION - Neurological Exam Neurological Exam: Abnormal Gait, Alert, Awake, CN II-XII Intact, Oriented x3 Neuro motor strength exam: Left Upper Extremity: 3, Right Upper Extremity: 5, Left Lower Extremity: 4, Right Lower Extremity: 5 - Psychiatric Exam Psychiatric exam: Normal Affect, Normal Mood - Skin Skin Exam: Dry, Intact, Normal Color, Warm Assessment and Plan (1) DVT prophylaxis Status: Acute (2) Constipation Status: Acute (3) Brain tumor Status: Acute (4) CVA (cerebral vascular accident) Status: Acute - Assessment and Plan (Free Text) Plan: (1) DVT prophylaxis Assessment and Plan: scd and ae hose lovenox Status: Acute (2) Constipation Assessment and Plan: refusing meds, will try prune juice Status: Acute (3) Brain tumor Assessment and Plan: s/p craniotomy, here for rehab cont meds, obtain all records from [facility] Status: Acute (4) CVA (cerebral vascular accident) Assessment and Plan: cont meds neuro consult appriciated pt/ot depakote, asa Status: Acute
[2017-09-04] MEDS: Enoxaparin 40 mg Syringe SC SCH (08:59)
[2017-09-04] MEDS: Multivitamin With Minerals Tab PO SCH (08:59)
[2017-09-04] MEDS: Divalproex 500 mg DR(BID formulation) PO SCH ×2 (09:01→17:05)
[2017-09-04] MEDS: Magnesium Oxide 400 mg Tab UD PO SCH ×2 (09:01→17:05)
--- NOTE | 2017-09-04 09:58 | CP.PCM.PN ---
Subjective - Date & Time of Evaluation Date of Evaluation: 09/04/17 Time of Evaluation: 09:57 - Subjective Subjective: Ms. Gomez was seen and examined at the bedside. She is alert, oriented in all spheres. She claims of very mild right frontal headache, non-radiating. She denies any dizziness, lightheadedness, nausea, or vomiting. She has mild left side droop, left upper extremity flaccidity, left lower extremity weakness. She is able to raise minimally her left LLE. She is on bilateral lower extremities SCD's.There was no untoward events overnight. Objective - Vital Signs/Intake and Output Vital Signs (last 24 hours): Temp Pulse Resp BP Pulse Ox 98.2 F 64 20 105/67 97 09/04/17 08:35 09/04/17 08:35 09/04/17 08:35 09/04/17 08:35 09/04/17 08:35 - Medications Medications: Current Medications Aspirin (Aspirin Chewable) 81 mg PO DAILY [facility] Last Admin: 09/04/17 09:00 Dose: 81 mg Divalproex Sodium (Depakote Dr(*Bid*)) 500 mg PO BID [facility] Last Admin: 09/04/17 09:01 Dose: 500 mg Docusate Sodium (Colace) 100 mg PO BID [facility] Last Admin: 09/04/17 08:59 Dose: 100 mg Enoxaparin Sodium (Lovenox) 40 mg SC DAILY [facility] PRN Reason: Protocol Last Admin: 09/04/17 08:59 Dose: 40 mg Famotidine (Pepcid) 20 mg PO BID [facility] Last Admin: 09/04/17 09:01 Dose: 20 mg Hydrogen Peroxide (Hydrogen Peroxide 237ml) 1 ml TP BID@0600,1700 [facility] Last Admin: 09/04/17 06:29 Dose: 1 ml Magnesium Oxide (Mag-Ox) 400 mg PO BID [facility] Last Admin: 09/04/17 09:01 Dose: 400 mg Metoclopramide HCl (Reglan) 10 mg PO DAILY@1130 [facility] Last Admin: 09/03/17 12:23 Dose: 10 mg Multivitamins/Minerals (Therapeutic-M Tab) 1 tab PO DAILY [facility] Last Admin: 09/04/17 08:59 Dose: 1 tab Oxycodone/Acetaminophen (Percocet 5/325 Mg Tab) 1 tab PO Q6 PRN PRN Reason: Pain, moderate (4-7) Stop: 09/07/17 18:07 Last Admin: 09/02/17 08:56 Dose: 1 tab Oxycodone/Acetaminophen (Percocet 5/325 Mg Tab) 2 tab PO Q6 PRN PRN Reason: Pain, severe (8-10) Stop: 09/07/17 18:08 Last Admin: 09/03/17 21:31 Dose: 2 tab Sennosides (Senokot Tab) 17.2 mg PO HS [facility] Last Admin: 09/03/17 21:30 Dose: 17.2 mg - Labs Labs: 09/03/17 05:15 09/03/17 05:15 - Constitutional Appears: No Acute Distress - Head Exam Head Exam: NORMAL INSPECTION - Neurological Exam Neurological Exam: Alert, Awake, Oriented x3 Neuro motor strength exam: Left Upper Extremity: 0, Right Upper Extremity: 5, Left Lower Extremity: 2/1, Right Lower Extremity: 5 Additional comments: neurological unchanged from previous examination. Assessment and Plan (1) CVA (cerebral vascular accident) Assessment & Plan: Case discussed with Dr. Rodriguez, continue all current medical, physical, occupational, and speech therapies. Recommend blood pressure control Status: Acute (2) Headache Assessment & Plan: Case discussed with Dr. Rodriguez, continue with depakote and monitor valproic level. Recommend to monitor the intensity of headache and seizure activity. If the headache persist, may repeat CT scan of the head without contrast. Status: Acute
[2017-09-04] MEDS: Oxycodone/Acetaminophen 5/325 mg Tab PO PRN (17:15)
--- NOTE | 2017-09-04 19:27 | CP.PCM.PN ---
Subjective - Date & Time of Evaluation Date of Evaluation: 09/04/17 Time of Evaluation: 19:26 - Subjective Subjective: Patient in good spirits, really appreciative to all the staff denies pain at this time some return in the left UE/LE over the last couple days continue current care ambulation improved Objective - Vital Signs/Intake and Output Vital Signs (last 24 hours): Temp Pulse Resp BP Pulse Ox 98.2 F 60 20 105/67 98 09/04/17 08:35 09/04/17 14:56 09/04/17 08:35 09/04/17 08:35 09/04/17 14:56 - Medications Medications: Current Medications Aspirin (Aspirin Chewable) 81 mg PO DAILY [facility] Last Admin: 09/04/17 09:00 Dose: 81 mg Divalproex Sodium (Depakote Dr(*Bid*)) 500 mg PO BID [facility] Last Admin: 09/04/17 17:05 Dose: 500 mg Docusate Sodium (Colace) 100 mg PO BID [facility] Last Admin: 09/04/17 17:04 Dose: 100 mg Enoxaparin Sodium (Lovenox) 40 mg SC DAILY [facility] PRN Reason: Protocol Last Admin: 09/04/17 08:59 Dose: 40 mg Famotidine (Pepcid) 20 mg PO BID [facility] Last Admin: 09/04/17 17:05 Dose: 20 mg Hydrogen Peroxide (Hydrogen Peroxide 237ml) 1 ml TP BID@0600,1700 [facility] Last Admin: 09/04/17 17:27 Dose: 1 ml Magnesium Oxide (Mag-Ox) 400 mg PO BID [facility] Last Admin: 09/04/17 17:05 Dose: 400 mg Metoclopramide HCl (Reglan) 10 mg PO DAILY@1130 [facility] Last Admin: 09/04/17 11:31 Dose: 10 mg Multivitamins/Minerals (Therapeutic-M Tab) 1 tab PO DAILY [facility] Last Admin: 09/04/17 08:59 Dose: 1 tab Oxycodone/Acetaminophen (Percocet 5/325 Mg Tab) 1 tab PO Q6 PRN PRN Reason: Pain, moderate (4-7) Stop: 09/07/17 18:07 Last Admin: 09/02/17 08:56 Dose: 1 tab Oxycodone/Acetaminophen (Percocet 5/325 Mg Tab) 2 tab PO Q6 PRN PRN Reason: Pain, severe (8-10) Stop: 09/07/17 18:08 Last Admin: 09/04/17 17:15 Dose: 2 tab Sennosides (Senokot Tab) 17.2 mg PO HS [facility] Last Admin: 09/03/17 21:30 Dose: 17.2 mg - Labs Labs: 09/03/17 05:15 09/03/17 05:15
[2017-09-05] MEDS: Hydrogen Peroxide 237 ML SOL TP SCH ×2 (06:22→17:06)
[2017-09-05] MEDS: Multivitamin With Minerals Tab PO SCH (08:09)
[2017-09-05] MEDS: Enoxaparin 40 mg Syringe SC SCH (08:09)
[2017-09-05] MEDS: Magnesium Oxide 400 mg Tab UD PO SCH ×2 (08:09→17:07)
[2017-09-05] MEDS: Divalproex 500 mg DR(BID formulation) PO SCH ×2 (08:09→17:07)
--- NOTE | 2017-09-05 09:35 | CP.PCM.PN ---
Subjective - Date & Time of Evaluation Date of Evaluation: 09/05/17 Time of Evaluation: 09:35 - Subjective Subjective: Ms. Gomez was seen and examined at the bedside. She is alert, oriented in all spheres. She claims of improving mild right frontal headache, non-radiating. She denies any dizziness, lightheadedness, nausea, or vomiting. She has mild left side droop, left upper extremity flaccidity, left lower extremity weakness which is it improving. She is able to raise minimally her left LLE. She is on bilateral lower extremities SCD's and elizabeth stockings.There was no untoward events overnight. Objective - Vital Signs/Intake and Output Vital Signs (last 24 hours): Temp Pulse Resp BP Pulse Ox 97.2 F L 78 20 122/78 98 09/05/17 09:01 09/05/17 09:01 09/05/17 09:01 09/05/17 09:01 09/05/17 09:01 - Medications Medications: Current Medications Aspirin (Aspirin Chewable) 81 mg PO DAILY [facility] Last Admin: 09/05/17 08:08 Dose: 81 mg Divalproex Sodium (Depakote Dr(*Bid*)) 500 mg PO BID [facility] Last Admin: 09/05/17 08:09 Dose: 500 mg Docusate Sodium (Colace) 100 mg PO BID [facility] Last Admin: 09/05/17 08:08 Dose: 100 mg Enoxaparin Sodium (Lovenox) 40 mg SC DAILY [facility] PRN Reason: Protocol Last Admin: 09/05/17 08:09 Dose: 40 mg Famotidine (Pepcid) 20 mg PO BID [facility] Last Admin: 09/05/17 08:09 Dose: 20 mg Hydrogen Peroxide (Hydrogen Peroxide 237ml) 1 ml TP BID@0600,1700 [facility] Last Admin: 09/05/17 06:22 Dose: 1 ml Magnesium Oxide (Mag-Ox) 400 mg PO BID [facility] Last Admin: 09/05/17 08:09 Dose: 400 mg Metoclopramide HCl (Reglan) 10 mg PO DAILY@1130 [facility] Last Admin: 09/04/17 11:31 Dose: 10 mg Multivitamins/Minerals (Therapeutic-M Tab) 1 tab PO DAILY [facility] Last Admin: 09/05/17 08:09 Dose: 1 tab Oxycodone/Acetaminophen (Percocet 5/325 Mg Tab) 1 tab PO Q6 PRN PRN Reason: Pain, moderate (4-7) Stop: 09/07/17 18:07 Last Admin: 09/02/17 08:56 Dose: 1 tab Oxycodone/Acetaminophen (Percocet 5/325 Mg Tab) 2 tab PO Q6 PRN PRN Reason: Pain, severe (8-10) Stop: 09/07/17 18:08 Last Admin: 09/04/17 17:15 Dose: 2 tab Sennosides (Senokot Tab) 17.2 mg PO HS [facility] Last Admin: 09/04/17 22:10 Dose: 17.2 mg - Labs Labs: 09/03/17 05:15 09/03/17 05:15 - Constitutional Appears: No Acute Distress - Head Exam Head Exam: NORMAL INSPECTION - Neurological Exam Neurological Exam: Alert, Awake, Oriented x3 Neuro motor strength exam: Left Upper Extremity: 0, Right Upper Extremity: 5, Left Lower Extremity: 3, Right Lower Extremity: 5 Additional comments: Neurological improving, her left leg strength is improving. Assessment and Plan (1) CVA (cerebral vascular accident) Assessment & Plan: Case discussed with Dr. Rodriguez, continue all current medical, physical, occupational, and speech therapies. There is no new recommendations from neurology. Status: Acute
[2017-09-06] MEDS: Hydrogen Peroxide 237 ML SOL TP SCH ×2 (06:35→17:00)
[2017-09-06 06:57] LABS: BLOOD UREA NITROGEN 17 mg/dl (7-17); CALCIUM 8.7 mg/dL (8.4-10.2); GFR AFRICAN-AMERICAN > 60; GFR NON-AFRICAN AMERICAN > 60
[2017-09-06 06:59] LABS: HEMOGLOBIN 12.3 g/dL (12.0-16.0); MEAN CELL VOLUME 92.6 fl (81.0-99.0); MEAN CORPUSCULAR HEMOGLOBIN 32.3 pg (27.0-31.0); MEAN CORPUSCULAR HGB CONC 34.9 g/dL (33.0-37.0); RBC 3.81 Mil/uL (3.80-5.20); RED CELL DISTRIBUTION WIDTH 13.9 % (11.5-14.5); WHITE BLOOD COUNT 5.5 K/uL (4.8-10.8)
--- NOTE | 2017-09-06 07:23 | CP.PCM.PN ---
Subjective - Date & Time of Evaluation Date of Evaluation: 09/06/17 Time of Evaluation: 07:23 - Subjective Subjective: doign well. no f/c, nv/d/. no further constipation. working w/ pt/ot. left sided hemiparesis remains Objective - Vital Signs/Intake and Output Vital Signs (last 24 hours): Temp Pulse Resp BP Pulse Ox 97.8 F 82 20 113/60 99 09/05/17 20:16 09/05/17 20:16 09/05/17 20:16 09/05/17 20:16 09/05/17 20:16 - Medications Medications: Current Medications Aspirin (Aspirin Chewable) 81 mg PO DAILY [facility] Last Admin: 09/05/17 08:08 Dose: 81 mg Divalproex Sodium (Depakote Dr(*Bid*)) 500 mg PO BID [facility] Last Admin: 09/05/17 17:07 Dose: 500 mg Docusate Sodium (Colace) 100 mg PO BID [facility] Last Admin: 09/05/17 17:07 Dose: 100 mg Enoxaparin Sodium (Lovenox) 40 mg SC DAILY [facility] PRN Reason: Protocol Last Admin: 09/05/17 08:09 Dose: 40 mg Famotidine (Pepcid) 20 mg PO BID [facility] Last Admin: 09/05/17 17:07 Dose: 20 mg Hydrogen Peroxide (Hydrogen Peroxide 237ml) 1 ml TP BID@0600,1700 [facility] Last Admin: 09/06/17 06:35 Dose: 1 ml Magnesium Oxide (Mag-Ox) 400 mg PO BID [facility] Last Admin: 09/05/17 17:07 Dose: 400 mg Metoclopramide HCl (Reglan) 10 mg PO DAILY@1130 [facility] Last Admin: 09/05/17 12:25 Dose: 10 mg Multivitamins/Minerals (Therapeutic-M Tab) 1 tab PO DAILY [facility] Last Admin: 09/05/17 08:09 Dose: 1 tab Oxycodone/Acetaminophen (Percocet 5/325 Mg Tab) 1 tab PO Q6 PRN PRN Reason: Pain, moderate (4-7) Stop: 09/07/17 18:07 Last Admin: 09/02/17 08:56 Dose: 1 tab Oxycodone/Acetaminophen (Percocet 5/325 Mg Tab) 2 tab PO Q6 PRN PRN Reason: Pain, severe (8-10) Stop: 09/07/17 18:08 Last Admin: 09/04/17 17:15 Dose: 2 tab Sennosides (Senokot Tab) 17.2 mg PO HS [facility] Last Admin: 09/05/17 21:25 Dose: 17.2 mg - Labs Labs: 09/06/17 05:25 09/06/17 05:25 - Constitutional Appears: Well, Non-toxic, No Acute Distress - Head Exam Head Exam: ATRAUMATIC, NORMAL INSPECTION, NORMOCEPHALIC - Eye Exam Eye Exam: EOMI, Normal appearance, PERRL Pupil Exam: NORMAL ACCOMODATION, PERRL - ENT Exam ENT Exam: Mucous Membranes Moist, Normal Exam - Neck Exam Neck Exam: Full ROM, Normal Inspection. absent: Lymphadenopathy - Respiratory Exam Respiratory Exam: Clear to Ausculation Bilateral, NORMAL BREATHING PATTERN - Cardiovascular Exam Cardiovascular Exam: REGULAR RHYTHM, RRR, +S1, +S2. absent: Murmur - GI/Abdominal Exam GI & Abdominal Exam: Soft, Normal Bowel Sounds. absent: Tenderness - Extremities Exam Extremities Exam: Full ROM, Normal Capillary Refill, Normal Inspection. absent : Joint Swelling, Pedal Edema - Back Exam Back Exam: NORMAL INSPECTION - Neurological Exam Neurological Exam: Abnormal Gait, Alert, Awake, CN II-XII Intact, Oriented x3 Neuro motor strength exam: Left Upper Extremity: 3, Right Upper Extremity: 5, Left Lower Extremity: 4, Right Lower Extremity: 5 - Psychiatric Exam Psychiatric exam: Normal Affect, Normal Mood - Skin Skin Exam: Dry, Intact, Normal Color, Warm Assessment and Plan (1) DVT prophylaxis Status: Acute (2) Constipation Status: Acute (3) Brain tumor Status: Acute (4) CVA (cerebral vascular accident) Status: Acute - Assessment and Plan (Free Text) Assessment: (1) DVT prophylaxis Assessment and Plan: scd and ae hose lovenox Status: Acute (2) Constipation Assessment and Plan: refusing meds, will try prune juice Status: Acute (3) Brain tumor Assessment and Plan: s/p craniotomy, here for rehab cont meds, obtain all records from [facility] Status: Acute (4) CVA (cerebral vascular accident) Assessment and Plan: cont meds neuro consult appriciated pt/ot depakote, asa Status: Acute
[2017-09-06] MEDS: Divalproex 500 mg DR(BID formulation) PO SCH (09:05)
[2017-09-06] MEDS: Enoxaparin 40 mg Syringe SC SCH (09:05)
[2017-09-06] MEDS: Multivitamin With Minerals Tab PO SCH (09:06)
[2017-09-06] MEDS: Magnesium Oxide 400 mg Tab UD PO SCH ×2 (09:06→16:59)
--- NOTE | 2017-09-06 09:39 | CP.PCM.PN ---
Subjective - Date & Time of Evaluation Date of Evaluation: 09/06/17 Time of Evaluation: 09:39 - Subjective Subjective: Ms. Gomez was seen and examined at the bedside. She is alert, oriented in all spheres. She claims of improving mild right frontal headache, non-radiating. She denies any dizziness, lightheadedness, nausea, or vomiting. She has mild left side droop, left upper extremity flaccidity, left lower extremity weakness which is it improving. She is able to raise minimally her left LLE. She is on bilateral lower extremities SCD's and elizabeth stockings. She also has rash noted in her bilateral buttocks, scattered, raised. Valproic acid 43.6.There was no untoward events overnight. Objective - Vital Signs/Intake and Output Vital Signs (last 24 hours): Temp Pulse Resp BP Pulse Ox 98.1 F 67 98 H 112/65 98 09/06/17 09:03 09/06/17 09:03 09/06/17 09:03 09/06/17 09:03 09/06/17 07:37 - Medications Medications: Current Medications Aspirin (Aspirin Chewable) 81 mg PO DAILY [facility] Last Admin: 09/06/17 09:05 Dose: 81 mg Divalproex Sodium (Depakote Dr(*Bid*)) 500 mg PO BID [facility] Last Admin: 09/06/17 09:05 Dose: 500 mg Docusate Sodium (Colace) 100 mg PO BID [facility] Last Admin: 09/06/17 09:05 Dose: 100 mg Enoxaparin Sodium (Lovenox) 40 mg SC DAILY [facility] PRN Reason: Protocol Last Admin: 09/06/17 09:05 Dose: 40 mg Famotidine (Pepcid) 20 mg PO BID [facility] Last Admin: 09/06/17 09:06 Dose: 20 mg Hydrogen Peroxide (Hydrogen Peroxide 237ml) 1 ml TP BID@0600,1700 [facility] Last Admin: 09/06/17 06:35 Dose: 1 ml Magnesium Oxide (Mag-Ox) 400 mg PO BID [facility] Last Admin: 09/06/17 09:06 Dose: 400 mg Metoclopramide HCl (Reglan) 10 mg PO DAILY@1130 [facility] Last Admin: 09/05/17 12:25 Dose: 10 mg Multivitamins/Minerals (Therapeutic-M Tab) 1 tab PO DAILY [facility] Last Admin: 09/06/17 09:06 Dose: 1 tab Oxycodone/Acetaminophen (Percocet 5/325 Mg Tab) 1 tab PO Q6 PRN PRN Reason: Pain, moderate (4-7) Stop: 09/07/17 18:07 Last Admin: 09/02/17 08:56 Dose: 1 tab Oxycodone/Acetaminophen (Percocet 5/325 Mg Tab) 2 tab PO Q6 PRN PRN Reason: Pain, severe (8-10) Stop: 09/07/17 18:08 Last Admin: 09/04/17 17:15 Dose: 2 tab Sennosides (Senokot Tab) 17.2 mg PO HS [facility] Last Admin: 09/05/17 21:25 Dose: 17.2 mg - Labs Labs: 09/06/17 05:25 09/06/17 05:25 - Constitutional Appears: No Acute Distress - Head Exam Head Exam: NORMAL INSPECTION - Neurological Exam Neurological Exam: Alert, Awake, Oriented x3 Neuro motor strength exam: Left Upper Extremity: 0, Right Upper Extremity: 5, Left Lower Extremity: 3, Right Lower Extremity: 5 Additional comments: Neurological unchanged from previous examination. - Skin Skin Exam: Rash Additional comments: bilateral buttocks. Assessment and Plan (1) CVA (cerebral vascular accident) Assessment & Plan: Case discussed with Dr. Rodriguez, continue all current medical, physical, occupational, and speech therapies. Recommend to maintain depakote at the same dose and will monitor valproic level next week.Recommend anti fungal cream for her rash in her bilateral buttocks, Clotrimazole 1% topical to be applied in her bilateral buttocks BID, if the rash worse, please refer it to primary team. Status: Acute
--- NOTE | 2017-09-06 12:34 | CP.PCM.PN ---
Subjective - Date & Time of Evaluation Date of Evaluation: 09/06/17 Time of Evaluation: 12:33 - Subjective Subjective: Patient seen in the room having some right eye blurriness had a good day in PT biopsy results are in and she will discuss with surgeon on saturday continue current care celine are CDI Objective - Vital Signs/Intake and Output Vital Signs (last 24 hours): Temp Pulse Resp BP Pulse Ox 98.1 F 67 98 H 112/65 98 09/06/17 09:03 09/06/17 09:03 09/06/17 09:03 09/06/17 09:03 09/06/17 07:37 - Medications Medications: Current Medications Aspirin (Aspirin Chewable) 81 mg PO DAILY [facility] Last Admin: 09/06/17 09:05 Dose: 81 mg Clotrimazole (Lotrimin 1% Cream) 1 applic TOP BID [facility] Docusate Sodium (Colace) 100 mg PO BID [facility] Last Admin: 09/06/17 09:05 Dose: 100 mg Enoxaparin Sodium (Lovenox) 40 mg SC DAILY [facility] PRN Reason: Protocol Last Admin: 09/06/17 09:05 Dose: 40 mg Famotidine (Pepcid) 20 mg PO BID [facility] Last Admin: 09/06/17 09:06 Dose: 20 mg Hydrogen Peroxide (Hydrogen Peroxide 237ml) 1 ml TP BID@0600,1700 [facility] Last Admin: 09/06/17 06:35 Dose: 1 ml Magnesium Oxide (Mag-Ox) 400 mg PO BID [facility] Last Admin: 09/06/17 09:06 Dose: 400 mg Metoclopramide HCl (Reglan) 10 mg PO DAILY@1130 [facility] Last Admin: 09/05/17 12:25 Dose: 10 mg Multivitamins/Minerals (Therapeutic-M Tab) 1 tab PO DAILY [facility] Last Admin: 09/06/17 09:06 Dose: 1 tab Oxycodone/Acetaminophen (Percocet 5/325 Mg Tab) 1 tab PO Q6 PRN PRN Reason: Pain, moderate (4-7) Stop: 09/07/17 18:07 Last Admin: 09/02/17 08:56 Dose: 1 tab Oxycodone/Acetaminophen (Percocet 5/325 Mg Tab) 2 tab PO Q6 PRN PRN Reason: Pain, severe (8-10) Stop: 09/07/17 18:08 Last Admin: 09/04/17 17:15 Dose: 2 tab Sennosides (Senokot Tab) 17.2 mg PO HS [facility] Last Admin: 09/05/17 21:25 Dose: 17.2 mg Valproate Sodium (Depakene Cap) 750 mg PO Q12 [facility] - Labs Labs: 09/06/17 05:25 09/06/17 05:25
--- NOTE | 2017-09-06 15:05 | CT ---
PROCEDURE: CT HEAD WITHOUT CONTRAST. HISTORY: new blurry vision COMPARISON: CT head dated 07/11/2017. TECHNIQUE: Axial computed tomography images were obtained through the head/brain without intravenous contrast. Radiation dose: Total exam DLP = 906.8 mGy-cm. This CT exam was performed using one or more of the following dose reduction techniques: Automated exposure control, adjustment of the mA and/or kV according to patient size, and/or use of iterative reconstruction technique. FINDINGS: HEMORRHAGE: No definite intracranial hemorrhage. BRAIN: Postsurgical changes in the right frontotemporal region with fluid-filled cavity and adjacent edema. Right frontal extra-axial fluid and air-filled collection with maximum depth measuring 0.9 cm. No atrophy or chronic microvascular ischemic changes. VENTRICLES: Unremarkable. No hydrocephalus. CALVARIUM: Right frontal craniotomy. PARANASAL SINUSES: Unremarkable as visualized. No significant inflammatory changes. MASTOID AIR CELLS: Unremarkable as visualized. No inflammatory changes. OTHER FINDINGS: Small right frontal scalp air and fluid-filled collection. IMPRESSION: Status post right frontal craniotomy with right frontotemporal region postsurgical changes and fluid-filled cavity with adjacent edema. Small right frontal extra-axial fluid and air-filled collection and small right frontal scalp fluid and air-filled collection, likely postsurgical. No definite intracranial hemorrhage.
[2017-09-07] MEDS: Hydrogen Peroxide 237 ML SOL TP SCH ×2 (06:07→17:44)
[2017-09-07] MEDS: Enoxaparin 40 mg Syringe SC SCH (08:48)
[2017-09-07] MEDS: Magnesium Oxide 400 mg Tab UD PO SCH ×2 (08:50→17:45)
[2017-09-07] MEDS: Multivitamin With Minerals Tab PO SCH (11:29)
--- NOTE | 2017-09-07 17:44 | CP.PCM.PN ---
Subjective - Date & Time of Evaluation Date of Evaluation: 09/07/17 Time of Evaluation: 17:43 - Subjective Subjective: Patient seen in the room with family present doing much better denies sob/cp decrease in right eye blurriness had a good day in PT getting some minimal return in left UE continue current care Objective - Vital Signs/Intake and Output Vital Signs (last 24 hours): Temp Pulse Resp BP Pulse Ox 98.2 F 74 21 118/55 L 98 09/07/17 11:40 09/07/17 11:40 09/07/17 11:40 09/07/17 11:40 09/07/17 11:40 - Medications Medications: Current Medications Aspirin (Aspirin Chewable) 81 mg PO DAILY [facility] Last Admin: 09/07/17 08:49 Dose: 81 mg Clotrimazole (Lotrimin 1% Cream) 1 applic TOP BID [facility] Last Admin: 09/07/17 08:50 Dose: 1 applic Docusate Sodium (Colace) 100 mg PO BID [facility] Last Admin: 09/07/17 08:50 Dose: 100 mg Enoxaparin Sodium (Lovenox) 40 mg SC DAILY [facility] PRN Reason: Protocol Last Admin: 09/07/17 08:48 Dose: 40 mg Famotidine (Pepcid) 20 mg PO BID [facility] Last Admin: 09/07/17 08:49 Dose: 20 mg Hydrogen Peroxide (Hydrogen Peroxide 237ml) 1 ml TP BID@0600,1700 [facility] Last Admin: 09/07/17 06:07 Dose: 1 ml Magnesium Oxide (Mag-Ox) 400 mg PO BID [facility] Last Admin: 09/07/17 08:50 Dose: 400 mg Metoclopramide HCl (Reglan) 10 mg PO DAILY@1130 [facility] Last Admin: 09/07/17 11:30 Dose: 10 mg Multivitamins/Minerals (Therapeutic-M Tab) 1 tab PO DAILY [facility] Last Admin: 09/07/17 11:29 Dose: 1 tab Oxycodone/Acetaminophen (Percocet 5/325 Mg Tab) 1 tab PO Q6 PRN PRN Reason: Pain, moderate (4-7) Stop: 09/07/17 18:07 Last Admin: 09/02/17 08:56 Dose: 1 tab Oxycodone/Acetaminophen (Percocet 5/325 Mg Tab) 2 tab PO Q6 PRN PRN Reason: Pain, severe (8-10) Stop: 09/07/17 18:08 Last Admin: 09/04/17 17:15 Dose: 2 tab Sennosides (Senokot Tab) 17.2 mg PO [facility] Last Admin: 09/06/17 21:52 Dose: Not Given Valproate Sodium (Depakene Cap) 750 mg PO Q12 [facility] Last Admin: 09/07/17 08:49 Dose: 750 mg - Labs Labs: 09/06/17 05:25 09/06/17 05:25
[2017-09-07] MEDS ORDERED: Oxycodone/Acetaminophen 5/325 mg Tab PO PRN (22:02)
[2017-09-07] MEDS: Oxycodone/Acetaminophen 5/325 mg Tab PO PRN (22:04)
[2017-09-08] MEDS: Hydrogen Peroxide 237 ML SOL TP SCH ×2 (07:03→17:15)
[2017-09-08] MEDS: Enoxaparin 40 mg Syringe SC SCH (08:31)
[2017-09-08] MEDS: Magnesium Oxide 400 mg Tab UD PO SCH ×2 (08:32→17:15)
[2017-09-08] MEDS: Multivitamin With Minerals Tab PO SCH (08:35)
--- NOTE | 2017-09-08 10:33 | CP.PCM.PN ---
Subjective - Date & Time of Evaluation Date of Evaluation: 09/08/17 Time of Evaluation: 10:31 - Subjective Subjective: pt doing well. no complaints offered at [facility]. no f/c, n/v/d. pt had period of blurry vision w/ a normal ct scan. all consult notes reviewed regaining small amts of rom of affected side Objective - Vital Signs/Intake and Output Vital Signs (last 24 hours): Temp Pulse Resp BP Pulse Ox 98.1 F 79 20 115/69 96 09/08/17 08:47 09/08/17 08:47 09/08/17 08:47 09/07/17 20:00 09/08/17 08:47 - Medications Medications: Current Medications Aspirin (Aspirin Chewable) 81 mg PO DAILY [facility] Last Admin: 09/08/17 08:33 Dose: 81 mg Clotrimazole (Lotrimin 1% Cream) 1 applic TOP BID [facility] Last Admin: 09/08/17 08:32 Dose: 1 applic Docusate Sodium (Colace) 100 mg PO BID [facility] Last Admin: 09/08/17 08:32 Dose: 100 mg Enoxaparin Sodium (Lovenox) 40 mg SC DAILY [facility] PRN Reason: Protocol Last Admin: 09/08/17 08:31 Dose: 40 mg Famotidine (Pepcid) 20 mg PO BID [facility] Last Admin: 09/08/17 08:33 Dose: 20 mg Hydrogen Peroxide (Hydrogen Peroxide 237ml) 1 ml TP BID@0600,1700 [facility] Last Admin: 09/08/17 07:03 Dose: 1 ml Magnesium Oxide (Mag-Ox) 400 mg PO BID [facility] Last Admin: 09/08/17 08:32 Dose: 400 mg Metoclopramide HCl (Reglan) 10 mg PO DAILY@1130 [facility] Last Admin: 09/07/17 11:30 Dose: 10 mg Multivitamins/Minerals (Therapeutic-M Tab) 1 tab PO DAILY [facility] Last Admin: 09/08/17 08:35 Dose: 1 tab Oxycodone/Acetaminophen (Percocet 5/325 Mg Tab) 1 tab PO Q6 PRN PRN Reason: Pain, moderate (4-7) Stop: 09/10/17 22:01 Last Admin: 09/07/17 22:04 Dose: 1 tab Oxycodone/Acetaminophen (Percocet 5/325 Mg Tab) 2 tab PO Q6 PRN PRN Reason: Pain, severe (8-10) Stop: 09/10/17 22:03 Sennosides (Senokot Tab) 17.2 mg PO HS [facility] Last Admin: 09/07/17 21:41 Dose: 17.2 mg Valproate Sodium (Depakene Cap) 750 mg PO Q12 [facility] Last Admin: 09/08/17 08:32 Dose: 750 mg - Labs Labs: 09/06/17 05:25 09/06/17 05:25 - Constitutional Appears: Well, Non-toxic, No Acute Distress - Head Exam Head Exam: ATRAUMATIC, NORMAL INSPECTION, NORMOCEPHALIC - Eye Exam Eye Exam: EOMI, Normal appearance, PERRL Pupil Exam: NORMAL ACCOMODATION, PERRL - ENT Exam ENT Exam: Mucous Membranes Moist, Normal Exam - Neck Exam Neck Exam: Full ROM, Normal Inspection. absent: Lymphadenopathy - Respiratory Exam Respiratory Exam: Clear to Ausculation Bilateral, NORMAL BREATHING PATTERN - Cardiovascular Exam Cardiovascular Exam: REGULAR RHYTHM, RRR, +S1, +S2. absent: Murmur - GI/Abdominal Exam GI & Abdominal Exam: Soft, Normal Bowel Sounds. absent: Tenderness - Extremities Exam Extremities Exam: Full ROM, Normal Capillary Refill, Normal Inspection. absent : Joint Swelling, Pedal Edema - Back Exam Back Exam: NORMAL INSPECTION - Neurological Exam Neurological Exam: Alert, Awake, CN II-XII Intact, Normal Gait, Oriented x3 Neuro motor strength exam: Left Upper Extremity: 3, Right Upper Extremity: 5, Left Lower Extremity: 4, Right Lower Extremity: 5 - Psychiatric Exam Psychiatric exam: Normal Affect, Normal Mood - Skin Skin Exam: Dry, Intact, Normal Color, Warm Assessment and Plan (1) DVT prophylaxis Status: Acute (2) Constipation Status: Acute (3) Brain tumor Status: Acute (4) CVA (cerebral vascular accident) Status: Acute - Assessment and Plan (Free Text) Assessment: (1) DVT prophylaxis Assessment and Plan: scd and ae hose lovenox Status: Acute (2) Constipation Assessment and Plan: resolved Status: Acute (3) Brain tumor Assessment and Plan: s/p craniotomy, here for rehab cont meds, obtain all records from [facility], to be d/c w/ surgeon this week Status: Acute (4) CVA (cerebral vascular accident) Assessment and Plan: cont meds neuro consult appriciated pt/ot depakote, asa Status: Acute 5-blurry vision-resolved, ct normal, will follow
[2017-09-08] MEDS: Oxycodone/Acetaminophen 5/325 mg Tab PO PRN ×2 (12:06→21:51)
[2017-09-09 06:14] LABS: MEAN CELL VOLUME 92.5 fl (81.0-99.0); MEAN CORPUSCULAR HEMOGLOBIN 31.9 pg (27.0-31.0); MEAN CORPUSCULAR HGB CONC 34.5 g/dL (33.0-37.0); RBC 3.76 Mil/uL (3.80-5.20); WHITE BLOOD COUNT 4.7 K/uL (4.8-10.8)
[2017-09-09 06:29] LABS: BLOOD UREA NITROGEN 11 mg/dl (7-17); CALCIUM 8.8 mg/dL (8.4-10.2); GFR AFRICAN-AMERICAN > 60; GFR NON-AFRICAN AMERICAN > 60
[2017-09-09] MEDS: Hydrogen Peroxide 237 ML SOL TP SCH ×2 (07:02→17:28)
[2017-09-09] MEDS: Magnesium Oxide 400 mg Tab UD PO SCH ×2 (09:08→17:25)
[2017-09-09] MEDS: Enoxaparin 40 mg Syringe SC SCH (09:08)
[2017-09-09] MEDS: Multivitamin With Minerals Tab PO SCH (09:10)
[2017-09-09] MEDS: Tropicamide 1% Opht 150 DROP/15 ML OU SCH ×4 (11:02→12:02)
[2017-09-09] MEDS: Phenylephrine 2.5% Opht Soln OU SCH ×4 (11:04→12:02)
[2017-09-09] MEDS: Dexamethasone/Tobramycin Ophth Susp OU SCH ×2 (17:36→23:19)
--- NOTE | 2017-09-09 18:16 | CP.PCM.PN ---
Subjective - Date & Time of Evaluation Date of Evaluation: 09/09/17 Time of Evaluation: 18:15 - Subjective Subjective: Ms. Gomez was seen and examined at the bedside. She is alert, oriented in all spheres. She claims of improving mild right frontal headache, non-radiating. She denies any dizziness, blurred vision, lightheadedness, nausea, or vomiting. She further claims of feeling depressed last saturday, today her mood is much improved. She also verbalize her upcoming appointment with her neurosurgeon this saturday.She has mild left side droop, left upper extremity flaccidity, left lower extremity weakness which is it improving. She is able to raise minimally her left LLE. She is on bilateral lower extremities SCD's and elizabeth stockings. CT scan done 09/06/2017 showed status post right frontal craniotomy with right frontotemporal region postsurgical changes and fluid filled cavity with adjacent edema. Small right frontal extra-axial fluid and air-filled collection and small right frontal scalp fluid and air filled collection, likely postsurgical. There is no definite intracranial hemorrahge.There was no untoward events overnight. Objective - Vital Signs/Intake and Output Vital Signs (last 24 hours): Temp Pulse Resp BP Pulse Ox 97.7 F 54 L 20 109/67 96 09/09/17 07:00 09/09/17 08:58 09/09/17 07:00 09/09/17 07:00 09/09/17 08:58 - Medications Medications: Current Medications Aspirin (Aspirin Chewable) 81 mg PO DAILY [facility] Last Admin: 09/09/17 09:07 Dose: 81 mg Clotrimazole (Lotrimin 1% Cream) 1 applic TOP BID [facility] Last Admin: 09/09/17 17:30 Dose: 1 applic Docusate Sodium (Colace) 100 mg PO BID [facility] Last Admin: 09/09/17 17:27 Dose: 100 mg Enoxaparin Sodium (Lovenox) 40 mg SC DAILY [facility] PRN Reason: Protocol Last Admin: 09/09/17 09:08 Dose: 40 mg Famotidine (Pepcid) 20 mg PO BID [facility] Last Admin: 09/09/17 17:25 Dose: 20 mg Hydrogen Peroxide (Hydrogen Peroxide 237ml) 1 ml TP BID@0600,1700 [facility] Last Admin: 09/09/17 17:28 Dose: 1 ml Magnesium Oxide (Mag-Ox) 400 mg PO BID [facility] Last Admin: 09/09/17 17:25 Dose: 400 mg Metoclopramide HCl (Reglan) 10 mg PO DAILY@1130 [facility] Last Admin: 09/09/17 12:05 Dose: 10 mg Multivitamins/Minerals (Therapeutic-M Tab) 1 tab PO DAILY [facility] Last Admin: 09/09/17 09:10 Dose: 1 tab Oxycodone/Acetaminophen (Percocet 5/325 Mg Tab) 1 tab PO Q6 PRN PRN Reason: Pain, moderate (4-7) Stop: 09/10/17 22:01 Last Admin: 09/08/17 21:51 Dose: 1 tab Oxycodone/Acetaminophen (Percocet 5/325 Mg Tab) 2 tab PO Q6 PRN PRN Reason: Pain, severe (8-10) Stop: 09/10/17 22:03 Sennosides (Senokot Tab) 17.2 mg PO HS [facility] Last Admin: 09/08/17 21:51 Dose: 17.2 mg Tobramycin/Dexamethasone (Tobradex Opht Susp) 1 drop OU Q6 [facility] Last Admin: 09/09/17 17:36 Dose: 1 drop Valproate Sodium (Depakene Cap) 750 mg PO Q12 [facility] Last Admin: 09/09/17 09:07 Dose: 750 mg - Labs Labs: 09/09/17 05:15 09/09/17 05:15 - Constitutional Appears: No Acute Distress - Head Exam Head Exam: NORMAL INSPECTION - Neurological Exam Neurological Exam: Alert, Awake, Oriented x3 Neuro motor strength exam: Left Upper Extremity: 0, Right Upper Extremity: 5, Left Lower Extremity: 3, Right Lower Extremity: 5 Additional comments: neurological unchanged from previous examination. Assessment and Plan (1) CVA (cerebral vascular accident) Assessment & Plan: Case discussed with Dr. Montes, continue all current medical, physical, occupational, and speech therapies. Recommend monitor valproic level this week. Status: Acute
[2017-09-10] MEDS: Dexamethasone/Tobramycin Ophth Susp OU SCH ×4 (06:11→23:58)
[2017-09-10] MEDS: Hydrogen Peroxide 237 ML SOL TP SCH ×2 (06:12→16:15)
--- NOTE | 2017-09-10 08:03 | CON ---
DATE: 09/09/2017 HISTORY OF PRESENT ILLNESS: Mrs. Gomez is a 51-year-old female who had a recent neurosurgical procedure for benign neoplasm. She is complaining about blurry vision in her right eye. PHYSICAL EXAMINATION: HEENT: Her visual acuity is 20/30 in both eyes. Extraocular movement exam is normal. Lens exam is normal. Dilated fundus exam is normal. Conjunctival exam reveals slight injection of both eyes. ASSESSMENT AND PLAN: Mrs. Gomez has conjunctivitis. I have put her on TobraDex one drop both eyes four times a day. Harsha Marshall MD
[2017-09-10] MEDS: Enoxaparin 40 mg Syringe SC SCH (08:18)
[2017-09-10] MEDS: Magnesium Oxide 400 mg Tab UD PO SCH ×2 (08:19→16:17)
--- NOTE | 2017-09-10 08:19 | CP.PCM.PN ---
Subjective - Date & Time of Evaluation Date of Evaluation: 09/10/17 Time of Evaluation: :18 - Subjective Subjective: no complaints offered. nof /c, n/v/d. doing well in pt/ot. no sexton or blurry vision Objective - Vital Signs/Intake and Output Vital Signs (last 24 hours): Temp Pulse Resp BP Pulse Ox 96.8 F L 72 20 125/68 96 09/09/17 20:42 09/09/17 20:42 09/09/17 20:42 09/09/17 20:42 09/09/17 20:42 - Medications Medications: Current Medications Aspirin (Aspirin Chewable) 81 mg PO DAILY [facility] Last Admin: 09/09/17 09:07 Dose: 81 mg Clotrimazole (Lotrimin 1% Cream) 1 applic TOP BID [facility] Last Admin: 09/09/17 17:30 Dose: 1 applic Docusate Sodium (Colace) 100 mg PO BID [facility] Last Admin: 09/09/17 17:27 Dose: 100 mg Enoxaparin Sodium (Lovenox) 40 mg SC DAILY [facility] PRN Reason: Protocol Last Admin: 09/09/17 09:08 Dose: 40 mg Famotidine (Pepcid) 20 mg PO BID [facility] Last Admin: 09/09/17 17:25 Dose: 20 mg Hydrogen Peroxide (Hydrogen Peroxide 237ml) 1 ml TP BID@0600,1700 [facility] Last Admin: 09/10/17 06:12 Dose: 1 ml Magnesium Oxide (Mag-Ox) 400 mg PO BID [facility] Last Admin: 09/09/17 17:25 Dose: 400 mg Metoclopramide HCl (Reglan) 10 mg PO DAILY@1130 [facility] Last Admin: 09/09/17 12:05 Dose: 10 mg Multivitamins/Minerals (Therapeutic-M Tab) 1 tab PO DAILY [facility] Last Admin: 09/09/17 09:10 Dose: 1 tab Oxycodone/Acetaminophen (Percocet 5/325 Mg Tab) 1 tab PO Q6 PRN PRN Reason: Pain, moderate (4-7) Stop: 09/10/17 22:01 Last Admin: 09/08/17 21:51 Dose: 1 tab Oxycodone/Acetaminophen (Percocet 5/325 Mg Tab) 2 tab PO Q6 PRN PRN Reason: Pain, severe (8-10) Stop: 09/10/17 22:03 Sennosides (Senokot Tab) 17.2 mg PO HS [facility] Last Admin: 09/09/17 22:00 Dose: Not Given Tobramycin/Dexamethasone (Tobradex Opht Susp) 1 drop OU Q6 [facility] Last Admin: 09/10/17 06:11 Dose: 1 drop Valproate Sodium (Depakene Cap) 750 mg PO Q12 [facility] Last Admin: 09/09/17 22:00 Dose: 750 mg - Labs Labs: 09/09/17 05:15 09/09/17 05:15 - Constitutional Appears: Well, Non-toxic, No Acute Distress - Head Exam Head Exam: ATRAUMATIC, NORMAL INSPECTION, NORMOCEPHALIC - Eye Exam Eye Exam: EOMI, Normal appearance, PERRL Pupil Exam: NORMAL ACCOMODATION, PERRL - ENT Exam ENT Exam: Mucous Membranes Moist, Normal Exam - Neck Exam Neck Exam: Full ROM, Normal Inspection. absent: Lymphadenopathy - Respiratory Exam Respiratory Exam: Clear to Ausculation Bilateral, NORMAL BREATHING PATTERN - Cardiovascular Exam Cardiovascular Exam: REGULAR RHYTHM, RRR, +S1, +S2. absent: Murmur - GI/Abdominal Exam GI & Abdominal Exam: Soft, Normal Bowel Sounds. absent: Tenderness - Extremities Exam Extremities Exam: Full ROM, Normal Capillary Refill, Normal Inspection. absent : Joint Swelling, Pedal Edema - Back Exam Back Exam: NORMAL INSPECTION - Neurological Exam Neurological Exam: Abnormal Gait, Alert, Awake, CN II-XII Intact, Oriented x3 Neuro motor strength exam: Left Upper Extremity: 3, Right Upper Extremity: 5, Left Lower Extremity: 4, Right Lower Extremity: 5 - Psychiatric Exam Psychiatric exam: Normal Affect, Normal Mood - Skin Skin Exam: Dry, Intact, Normal Color, Warm Assessment and Plan (1) DVT prophylaxis Status: Acute (2) Constipation Status: Acute (3) Brain tumor Status: Acute (4) CVA (cerebral vascular accident) Status: Acute - Assessment and Plan (Free Text) Assessment: (1) DVT prophylaxis Assessment and Plan: scd and ae hose lovenox Status: Acute (2) Constipation Assessment and Plan: resolved Status: Acute (3) Brain tumor Assessment and Plan: s/p craniotomy, here for rehab cont meds, obtain all records from [facility], to be d/c w/ surgeon this week Status: Acute (4) CVA (cerebral vascular accident) Assessment and Plan: cont meds neuro consult appriciated pt/ot depakote, asa Status: Acute 5-blurry vision-resolved, ct normal, will follow
[2017-09-10] MEDS: Multivitamin With Minerals Tab PO SCH (08:20)
--- NOTE | 2017-09-10 13:16 | PSY.TMCNF ---
Nursing - Vital Signs Vital Signs (Last 8 hours): Vital Signs 09/10/17 09/10/17 08:17 09:00 Temperature 98.2 F 98.2 F Pulse Rate 84 84 Respiratory 20 20 Rate Blood Pressure 104/65 104/65 O2 Sat by Pulse 98 Oximetry Pain: 0 - Precautions: Precautions: Fall Prevention, Pressure Ulcer, Seizure - Medications/Other Issues Comment: -Noted improved affect and increased participation with ADL's. Seen by Dr. Marshall yesterday, started on Tobradex drops. -For staple removal in am at Dr. Valentino's office . - Consults Comment: Dr. Lee, Dr. Chung, Dr. Marshall, Dr. Montes - Skin Incision Site: Right Parietal Dressing Status: Clean, Dry, Intact Incision: Lindsay Intact Incision Line Treatment: Cleanse with NSS & Peroxide mri special procedures technologist. - Toileting Toileting: Minimal Assistance - Bladder Management Bladder Pattern: Normal Voiding Method: Toilet Bladder Management: Supervision Frequency of Accidents: 0 - Bowel Management Bowel Pattern: Constipated Bowel Management: Supervision Frequency of Accidents: 0 - Transfers Transfers: Supervision - ADL's ADL's: Minimal Assistance - Pain Management Comments: Percocet PRN - Patient/Family Teaching Comments: Care post CVA and Craniotomy, Safety Precautions - Goals/Time Frame Comments: Per multidisciplinary care plan and goals - Provider Provider: Spring DURANn RN CRRN Physical Therapy - Bed Mobility Bed Mobility: Minimal Assistance - Transfers Wheelchair to Mat: Verbal Cues, Contact Guard Sit to Stand: Verbal Cues, Contact Guard - Ambulation Level of Assistance: Verbal Cues, Minimal Assistance, Moderate Assistance Distance (ft.): 120 Assistive Devices: Narrow base quad cane - Stair Negotiation Stairs: Level of Assistance: Minimal Assistance, Moderate Assistance Number of Stairs: 6 Stairs: Assistive Devices: Right Handrail - Standing Balance Static Stand: Contact Guard Assist Dynamic Stand: Minimal Assistance - Pain Pain (assessed during therapy session): 0 - Insight/Carryover Insight/Carryover: Good - Patient/Family Education Comment: CVA recovery, safety, d/c recommendations - Assessment/Plan Assessment: Pt is agreeable to participate in recreation therapy sessions. Pt requires min A-supervision throughout leisure tasks as pt requires verbal cues for carryover of task rules, initiation and redirection to task, and attending to task. Pt's mood state and arousal level has improved throughout stay and is agreeable to stay out of bed longer and agreed to participate in sessions. Pt will continue to benefit from participating in recreation therapy sessions throughout stay on unit. - Goals Timeframe: 2 weeks Goals: Sit < > supine mod I. Sit < > stand mod I with NBQC. Bed < > chair transfers mod I. Pt will ambulate 150 ft with NBQC and supervision. Pt will ascend/descend flight of stairs with handrail and supervision - Provider Therapist: Demetria Doe PT DPT License Number: [id number] Occupational Therapy - Arousal/Attention/Orientation Patient Orientation: Person, Place, Time, Appropriate to Age, Appropriate to Situation - ADL/IADL Self Feeding: Supervision, Verbal Cues, Set-up Help Grooming: Verbal Cues, Set-up Help, Minimal Assistance Bathing-Upper Extremity: Verbal Cues, Set-up Help, Minimal Assistance Bathing-Lower Extremity: Verbal Cues, Set-up Help, Minimal Assistance Dressing-Upper Extremity: Minimal Assistance Dressing-Lower Extremity: Verbal Cues, Set-up Help, Minimal Assistance - Sitting Balance Static Sitting: Supervision Dynamic Sitting: Contact Guard Assist - Transfers Wheelchair to Bed Transfers: Contact Guard Toilet Transfers: Verbal Cues, Set-up Help, Minimal Assistance Tub Transfers: Minimal Assistance Comment: uses tub transfer bench w/in step over tub . - Wheelchair Management Level of Assistance: Minimal Assistance Distance (ft.): 150 - Upper Extremity Status Right Upper Extremity Comment: AROM is WFLS Left Upper Extremity Comment: PROM is WFLS, no AROM noted at this time. + sensation for light touch and deep pressure. +propiception - Pain Pain (assessed during therapy session): 0 - Insight/Carryover Insight/Carryover: Good - Patient/Family Education Comment: CVA recovery, safety, d/c recommendations - Assessment/Plan Assessment: Pt is agreeable to participate in recreation therapy sessions. Pt requires min A-supervision throughout leisure tasks as pt requires verbal cues for carryover of task rules, initiation and redirection to task, and attending to task. Pt's mood state and arousal level has improved throughout stay and is agreeable to stay out of bed longer and agreed to participate in sessions. Pt will continue to benefit from participating in recreation therapy sessions throughout stay on unit. - Goals Timeframe: 2 weeks Goals: Sit < > supine mod I. Sit < > stand mod I with NBQC. Bed < > chair transfers mod I. Pt will ambulate 150 ft with NBQC and supervision. 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 -mild oral dysphagia - Assessment Memory Impairment: Mild Dysphagia/Swallowing Impairment: Mild - Plan Assessment: Pt is agreeable to participate in recreation therapy sessions. Pt requires min A-supervision throughout leisure tasks as pt requires verbal cues for carryover of task rules, initiation and redirection to task, and attending to task. Pt's mood state and arousal level has improved throughout stay and is agreeable to stay out of bed longer and agreed to participate in sessions. Pt will continue to benefit from participating in recreation therapy sessions throughout stay on unit. - Provider Therapist: Virgie aVng License Number: [id number] Recreational Therapy - Participation Participation: Participates in Individual and/or Group Sessions - Attendance Attendance: 3-5 times per week - Activities Leisure Activities: Cards and Games - Socialization Level of Socialization: Initiates/interacts freely with care givers and peer - Assessment Assessment/Plan: Pt is agreeable to participate in recreation therapy sessions. Pt requires min A-supervision throughout leisure tasks as pt requires verbal cues for carryover of task rules, initiation and redirection to task, and attending to task. Pt's mood state and arousal level has improved throughout stay and is agreeable to stay out of bed longer and agreed to participate in sessions. Pt will continue to benefit from participating in recreation therapy sessions throughout stay on unit. Problems Currently Limiting Participation: L side weakness, L side visual inattention, decrease leisure awareness level, decrease activity tolerance level , decrease endurance level, c/o dizziness or blurred vision Goals and Time Frame: Pt will be encouraged to participate in 1:1 and group recreation therapy sessions 3-5x week to improve activity activity tolerance level, visual awareness to the L side, direction following, arousal level, and attention to task. - Provider Therapist: Letty Johnson, METAL FINISH INSPECTOR #[id number] Nutrition - Current Diet Current Diet/ Supplement/ Feedings: 2 gram Na diet - Appetite Percent Meal Consumed: 75-100% - Comments Comments: Care post CVA and Craniotomy, Safety Precautions - Assessment/Goals/Time Frame Assessment/Goals/Time Frame: -Noted improved affect and increased participation with ADL's. Seen by Dr. Marshall yesterday, started on Tobradex drops. -For staple removal in am at Dr. Valentino's office . - Provider Provider: Rosalia Iinguez RD Case Management - Psychosocial Assessment Support Systems: Lives with 3 adult children -. Primary contact is daughter Christiane cell: [phone] Psychological Interventions/Needs: Pt is alert and oriented x3; requires encouragement at times to participate in therapy; Pt tearful when discussing condition - Psychology consulted Discharge Concerns: Pt has approximately 10 steps to enter and with flaccid left upper extremity; Per daughter and pt, pt's insurance terminated as of - will clarify with insurance plan specialist Patient/Family Meeting: CM met with pt and rehab team as well as daughter Crhistiane with pt's consent Intervention/Goal/Outcome:: 1. D/C date to be determined; Plan: home with skilled homecare vs [facility] pending insurance 3. Emotional support and encouragement 4. LAD 09/05/17; Updates to be sent 09/05/17 5. Clarify insurance eligibility for discharge planning - Discharge Plan Discharge Plan: Home with significant other/family, Home with services Home Services: Refer to skilled homecare vs [facility] Comment: Pending insurance clarification - Provider Provider: JAI Olson, EQUIP MAINT ENG License Number: [id number] Rehabilitation Plan - Treatment Plan Treatment Plan: Physical Therapy, Occupational Therapy, Speech, Dietary, Patient /Family Education - Discharge Plan Estimated Date of Discharge: 09/21/17 Discharge to: Home
--- NOTE | 2017-09-10 13:55 | CP.PCM.PN ---
Subjective - Date & Time of Evaluation Date of Evaluation: 09/10/17 Time of Evaluation: 13:53 - Subjective Subjective: Patient seen in the room looking forward to neurosx appt tomorrow they will d/c celine and discuss biopsy results she continues to improve and is very motivated limited ability to get therapy as outpatient and therefore I would be requesting that she be extended to 09/21/17 to allow a safe and appropriate d/c home excellent acute rehab patient Objective - Vital Signs/Intake and Output Vital Signs (last 24 hours): Temp Pulse Resp BP Pulse Ox 98.2 F 84 20 104/65 98 09/10/17 09:00 09/10/17 09:00 09/10/17 09:00 09/10/17 09:00 09/10/17 08:17 - Medications Medications: Current Medications Aspirin (Aspirin Chewable) 81 mg PO DAILY [facility] Last Admin: 09/10/17 08:20 Dose: 81 mg Clotrimazole (Lotrimin 1% Cream) 1 applic TOP BID [facility] Last Admin: 09/10/17 08:21 Dose: 1 applic Docusate Sodium (Colace) 100 mg PO BID [facility] Last Admin: 09/10/17 08:19 Dose: 100 mg Enoxaparin Sodium (Lovenox) 40 mg SC DAILY [facility] PRN Reason: Protocol Last Admin: 09/10/17 08:18 Dose: 40 mg Famotidine (Pepcid) 20 mg PO BID [facility] Last Admin: 09/10/17 08:20 Dose: 20 mg Hydrogen Peroxide (Hydrogen Peroxide 237ml) 1 ml TP BID@0600,1700 [facility] Last Admin: 09/10/17 06:12 Dose: 1 ml Magnesium Oxide (Mag-Ox) 400 mg PO BID [facility] Last Admin: 09/10/17 08:19 Dose: 400 mg Metoclopramide HCl (Reglan) 10 mg PO DAILY@1130 [facility] Last Admin: 09/10/17 11:19 Dose: 10 mg Multivitamins/Minerals (Therapeutic-M Tab) 1 tab PO DAILY [facility] Last Admin: 09/10/17 08:20 Dose: 1 tab Oxycodone/Acetaminophen (Percocet 5/325 Mg Tab) 1 tab PO Q6 PRN PRN Reason: Pain, moderate (4-7) Stop: 09/10/17 22:01 Last Admin: 09/08/17 21:51 Dose: 1 tab Oxycodone/Acetaminophen (Percocet 5/325 Mg Tab) 2 tab PO Q6 PRN PRN Reason: Pain, severe (8-10) Stop: 09/10/17 22:03 Sennosides (Senokot Tab) 17.2 mg PO HS [facility] Last Admin: 09/09/17 22:00 Dose: Not Given Tobramycin/Dexamethasone (Tobradex Opht Susp) 1 drop OU Q6 [facility] Last Admin: 09/10/17 11:19 Dose: 1 drop Valproate Sodium (Depakene Cap) 750 mg PO Q12 [facility] Last Admin: 09/10/17 08:18 Dose: 750 mg - Labs Labs: 09/09/17 05:15 09/09/17 05:15
--- NOTE | 2017-09-10 17:28 | CP.PCM.PN ---
Subjective - Date & Time of Evaluation Date of Evaluation: 09/10/17 Time of Evaluation: 17:27 - Subjective Subjective: Ms. Gomez was seen and examined at the bedside. She is alert, oriented in all spheres. She claims of improving mild right frontal headache, non-radiating. She denies any dizziness, blurred vision, lightheadedness, nausea, or vomiting. She also verbalize her upcoming appointment with her neurosurgeon this saturday.She has mild left side droop, left upper extremity flaccidity, left lower extremity weakness which is it improving. She is able to raise minimally her left LLE. She is on bilateral lower extremities SCD's and elizabeth stockings. There was no untoward events overnight. Objective - Vital Signs/Intake and Output Vital Signs (last 24 hours): Temp Pulse Resp BP Pulse Ox 98.2 F 84 20 104/65 98 09/10/17 09:00 09/10/17 09:00 09/10/17 09:00 09/10/17 09:00 09/10/17 08:17 - Medications Medications: Current Medications Aspirin (Aspirin Chewable) 81 mg PO DAILY [facility] Last Admin: 09/10/17 08:20 Dose: 81 mg Clotrimazole (Lotrimin 1% Cream) 1 applic TOP BID [facility] Last Admin: 09/10/17 16:16 Dose: 1 applic Docusate Sodium (Colace) 100 mg PO BID [facility] Last Admin: 09/10/17 16:16 Dose: 100 mg Enoxaparin Sodium (Lovenox) 40 mg SC DAILY [facility] PRN Reason: Protocol Last Admin: 09/10/17 08:18 Dose: 40 mg Famotidine (Pepcid) 20 mg PO BID [facility] Last Admin: 09/10/17 16:17 Dose: 20 mg Hydrogen Peroxide (Hydrogen Peroxide 237ml) 1 ml TP BID@0600,1700 [facility] Last Admin: 09/10/17 16:15 Dose: 1 ml Magnesium Oxide (Mag-Ox) 400 mg PO BID [facility] Last Admin: 09/10/17 16:17 Dose: 400 mg Metoclopramide HCl (Reglan) 10 mg PO DAILY@1130 [facility] Last Admin: 09/10/17 11:19 Dose: 10 mg Multivitamins/Minerals (Therapeutic-M Tab) 1 tab PO DAILY [facility] Last Admin: 09/10/17 08:20 Dose: 1 tab Oxycodone/Acetaminophen (Percocet 5/325 Mg Tab) 1 tab PO Q6 PRN PRN Reason: Pain, moderate (4-7) Stop: 09/10/17 22:01 Last Admin: 09/08/17 21:51 Dose: 1 tab Oxycodone/Acetaminophen (Percocet 5/325 Mg Tab) 2 tab PO Q6 PRN PRN Reason: Pain, severe (8-10) Stop: 09/10/17 22:03 Sennosides (Senokot Tab) 17.2 mg PO HS [facility] Last Admin: 09/09/17 22:00 Dose: Not Given Tobramycin/Dexamethasone (Tobradex Opht Susp) 1 drop OU Q6 [facility] Last Admin: 09/10/17 11:19 Dose: 1 drop Valproate Sodium (Depakene Cap) 750 mg PO Q12 [facility] Last Admin: 09/10/17 08:18 Dose: 750 mg - Labs Labs: 09/09/17 05:15 09/09/17 05:15 - Constitutional Appears: No Acute Distress - Head Exam Head Exam: NORMAL INSPECTION - Neurological Exam Neurological Exam: Alert, Awake, Oriented x3 Neuro motor strength exam: Left Upper Extremity: 0, Right Upper Extremity: 5, Left Lower Extremity: 3, Right Lower Extremity: 5 Additional comments: Neurological unchanged from previous examination. Assessment and Plan (1) CVA (cerebral vascular accident) Assessment & Plan: Case discussed with Dr. Montes, continue all current medical, physical, occupational, and speech therapies. Recommend monitor valproic level this week. Status: Acute
[2017-09-10] MEDS: Oxycodone/Acetaminophen 5/325 mg Tab PO PRN (21:34)
[2017-09-11] MEDS: Hydrogen Peroxide 237 ML SOL TP SCH ×2 (07:04→19:00)
[2017-09-11] MEDS: Dexamethasone/Tobramycin Ophth Susp OU SCH ×4 (07:05→23:33)
[2017-09-11] MEDS: Enoxaparin 40 mg Syringe SC SCH (08:07)
[2017-09-11] MEDS: Magnesium Oxide 400 mg Tab UD PO SCH ×2 (08:09→16:40)
[2017-09-11] MEDS: Multivitamin With Minerals Tab PO SCH (08:10)
[2017-09-11] MEDS ORDERED: Oxycodone/Acetaminophen 5/325 mg Tab PO PRN (10:34)
[2017-09-11] MEDS: Oxycodone/Acetaminophen 5/325 mg Tab PO PRN ×2 (10:38→16:49)
[2017-09-12] MEDS: Hydrogen Peroxide 237 ML SOL TP SCH (06:38)
[2017-09-12] MEDS: Dexamethasone/Tobramycin Ophth Susp OU SCH ×4 (06:39→23:50)
[2017-09-12 07:14] LABS: HEMOGLOBIN 11.9 g/dL (12.0-16.0); MEAN CELL VOLUME 93.8 fl (81.0-99.0); MEAN CORPUSCULAR HEMOGLOBIN 32.1 pg (27.0-31.0); MEAN CORPUSCULAR HGB CONC 34.3 g/dL (33.0-37.0); RBC 3.7 Mil/uL (3.80-5.20); RED CELL DISTRIBUTION WIDTH 14.2 % (11.5-14.5); WHITE BLOOD COUNT 3.9 K/uL (4.8-10.8)
[2017-09-12 07:16] LABS: BLOOD UREA NITROGEN 12 mg/dl (7-17); CALCIUM 8.7 mg/dL (8.4-10.2); GFR AFRICAN-AMERICAN > 60; GFR NON-AFRICAN AMERICAN > 60
[2017-09-12] MEDS: Enoxaparin 40 mg Syringe SC SCH (09:00)
[2017-09-12] MEDS: Magnesium Oxide 400 mg Tab UD PO SCH ×2 (09:00→16:53)
[2017-09-12] MEDS: Multivitamin With Minerals Tab PO SCH (09:01)
[2017-09-12] MEDS: Oxycodone/Acetaminophen 5/325 mg Tab PO PRN (21:50)
[2017-09-13] MEDS: Dexamethasone/Tobramycin Ophth Susp OU SCH ×3 (06:50→17:12)
[2017-09-13] MEDS: Bacitracin OINT 15GM TOP SCH ×2 (06:50→08:31)
--- NOTE | 2017-09-13 08:28 | CP.PCM.CON ---
History of Present Illness - History of Present Illness History of Present Illness: Late Entry 09/05/2017 Pt is a 51 year old female admitted to [facility] and referred to the automatic typewriter inspector for evaluation. See medical history for medication list and medical history. Social History: pt lives with two sons and daughter. She is . Pt reported very postive relationships with children. Ed/Voc: pt rasised in [place], obtained a GED. 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 Pt denied a psych history, denied a history of alc/sub abuse. MSE: Pt alert, oriented x2, relevant/coherent, no psychosis, affect constricted , mood depressed over status, no si no hi ideation. Dx: ADjustment Dx witih depression Pt seen for supportive therapy on 09/12. Pt spoke of improved mood and focusng on the positive. She discussed gains made and focusing on recovery. Pt reported decline in tearfulness. Cognitive strategies reviewed to reduce depression/distress. Past Patient History - Past Medical History & Family History Past Medical History?: Yes - Past Social History Smoking Status: Former Smoker Alcohol: Social Drugs: Denies Home Situation {Lives}: With Family (+ steps) - CARDIAC Hx Hypercholesterolemia: Yes Hx Hypertension: Yes - NEUROLOGICAL HX Cerebrovascular Accident: Yes (07/21, no residual) Hx Dizziness: Yes Hx Migraine: Yes Other/Comment: Right Frontoparietal Benign Neoplasm - HEENT Other/Comment: Otitis Media - HEMATOLOGICAL/ONCOLOGICAL Hx Blood Disorders: Yes Hx AIDS: No Hx Human Immunodeficiency Virus (HIV): No Other/Comment: meningioma of brain - MUSCULOSKELETAL/RHEUMATOLOGICAL Hx Falls: No - PSYCHIATRIC Hx Anxiety: Yes Hx Substance Use: No - SURGICAL HISTORY Hx Surgeries: No Other/Comment: 08/26: Awake Craniotomy for resection of Right frontal lesion - ANESTHESIA Hx Anesthesia: Yes Hx Anesthesia Reactions: No Hx Malignant Hyperthermia: No Has any member of the family had a problem w/ anesthesia?: No Meds Allergies/Adverse Reactions: Allergies Allergy/AdvReac Type Severity Reaction Status Date / Time levetiracetam [From [facility]] AdvReac Mild TACHYCARDIA Verified 08/30/17 13:42 AND DIZZINESS - Medications Medications: Current Medications Aspirin (Aspirin Chewable) 81 mg PO DAILY [facility] Last Admin: 09/12/17 08:58 Dose: 81 mg Bacitracin (Bacitracin Oint) 1 applic TOP DAILY [facility] Last Admin: 09/13/17 06:50 Dose: 1 applic Clotrimazole (Lotrimin 1% Cream) 1 applic TOP BID [facility] Last Admin: 09/12/17 16:53 Dose: 1 applic Docusate Sodium (Colace) 100 mg PO BID [facility] Last Admin: 09/12/17 16:53 Dose: 100 mg Enoxaparin Sodium (Lovenox) 40 mg SC DAILY [facility] PRN Reason: Protocol Last Admin: 09/12/17 09:00 Dose: 40 mg Famotidine (Pepcid) 20 mg PO BID [facility] Last Admin: 09/12/17 16:53 Dose: 20 mg Magnesium Oxide (Mag-Ox) 400 mg PO BID [facility] Last Admin: 09/12/17 16:53 Dose: 400 mg Metoclopramide HCl (Reglan) 10 mg PO DAILY@1130 [facility] Last Admin: 09/12/17 11:54 Dose: 10 mg Multivitamins/Minerals (Therapeutic-M Tab) 1 tab PO DAILY [facility] Last Admin: 09/12/17 09:01 Dose: 1 tab Oxycodone/Acetaminophen (Percocet 5/325 Mg Tab) 1 tab PO Q6 PRN PRN Reason: Pain, moderate (4-7) Stop: 09/14/17 10:35 Last Admin: 09/12/17 21:50 Dose: 1 tab Oxycodone/Acetaminophen (Percocet 5/325 Mg Tab) 2 tab PO Q6 PRN PRN Reason: Pain, severe (8-10) Stop: 09/14/17 10:35 Last Admin: 09/12/17 08:58 Dose: 2 tab Sennosides (Senokot Tab) 17.2 mg PO HS [facility] Last Admin: 09/12/17 21:49 Dose: 17.2 mg Tobramycin/Dexamethasone (Tobradex Opht Susp) 1 drop OU Q6 [facility] Last Admin: 09/13/17 06:50 Dose: 1 drop Valproate Sodium (Depakene Cap) 750 mg PO Q12 [facility] Last Admin: 09/12/17 21:47 Dose: 750 mg Results - Vital Signs Recent Vital Signs: Last Vital Signs Temp 96.8 F L 09/12/17 20:32 Pulse 67 09/12/17 20:32 Resp 20 09/12/17 20:32 BP 102/64 09/12/17 20:32 Pulse Ox 97 05/10/18 20:32 - Labs Result Diagrams: 09/12/17 05:15 09/12/17 05:15
[2017-09-13] MEDS: Enoxaparin 40 mg Syringe SC SCH (08:31)
[2017-09-13] MEDS: Multivitamin With Minerals Tab PO SCH (08:33)
[2017-09-13] MEDS: Magnesium Oxide 400 mg Tab UD PO SCH ×2 (08:33→16:51)
--- NOTE | 2017-09-13 08:59 | CP.PCM.PN ---
Subjective - Date & Time of Evaluation Date of Evaluation: 09/13/17 Time of Evaluation: 08:58 - Subjective Subjective: pt doing well. no f/c, nv//d. making small amt of progress w/ rom of left side, left hand still in contractures. no complaints offered.all consults appriciated Objective - Vital Signs/Intake and Output Vital Signs (last 24 hours): Temp Pulse Resp BP Pulse Ox 98.3 F 69 20 110/60 97 09/13/17 08:53 09/13/17 08:53 09/13/17 08:53 09/13/17 08:53 09/13/17 08:53 - Medications Medications: Current Medications Aspirin (Aspirin Chewable) 81 mg PO DAILY [facility] Last Admin: 09/13/17 08:32 Dose: 81 mg Bacitracin (Bacitracin Oint) 1 applic TOP DAILY [facility] Last Admin: 09/13/17 08:31 Dose: Not Given Clotrimazole (Lotrimin 1% Cream) 1 applic TOP BID [facility] Last Admin: 09/13/17 08:30 Dose: 1 applic Docusate Sodium (Colace) 100 mg PO BID [facility] Last Admin: 09/13/17 08:32 Dose: 100 mg Enoxaparin Sodium (Lovenox) 40 mg SC DAILY [facility] PRN Reason: Protocol Last Admin: 09/13/17 08:31 Dose: 40 mg Famotidine (Pepcid) 20 mg PO BID [facility] Last Admin: 09/13/17 08:33 Dose: 20 mg Magnesium Oxide (Mag-Ox) 400 mg PO BID [facility] Last Admin: 09/13/17 08:33 Dose: 400 mg Metoclopramide HCl (Reglan) 10 mg PO DAILY@1130 [facility] Last Admin: 09/12/17 11:54 Dose: 10 mg Multivitamins/Minerals (Therapeutic-M Tab) 1 tab PO DAILY [facility] Last Admin: 09/13/17 08:33 Dose: 1 tab Oxycodone/Acetaminophen (Percocet 5/325 Mg Tab) 1 tab PO Q6 PRN PRN Reason: Pain, moderate (4-7) Stop: 09/14/17 10:35 Last Admin: 09/12/17 21:50 Dose: 1 tab Oxycodone/Acetaminophen (Percocet 5/325 Mg Tab) 2 tab PO Q6 PRN PRN Reason: Pain, severe (8-10) Stop: 09/14/17 10:35 Last Admin: 09/12/17 08:58 Dose: 2 tab Sennosides (Senokot Tab) 17.2 mg PO HS [facility] Last Admin: 09/12/17 21:49 Dose: 17.2 mg Tobramycin/Dexamethasone (Tobradex Opht Susp) 1 drop OU Q6 [facility] Last Admin: 09/13/17 06:50 Dose: 1 drop Valproate Sodium (Depakene Cap) 750 mg PO Q12 [facility] Last Admin: 09/13/17 08:33 Dose: 750 mg - Labs Labs: 09/12/17 05:15 09/12/17 05:15 - Constitutional Appears: Well, Non-toxic, No Acute Distress - Head Exam Head Exam: ATRAUMATIC, NORMAL INSPECTION, NORMOCEPHALIC - Eye Exam Eye Exam: EOMI, Normal appearance, PERRL Pupil Exam: NORMAL ACCOMODATION, PERRL - ENT Exam ENT Exam: Mucous Membranes Moist, Normal Exam - Neck Exam Neck Exam: Full ROM, Normal Inspection. absent: Lymphadenopathy - Respiratory Exam Respiratory Exam: Clear to Ausculation Bilateral, NORMAL BREATHING PATTERN - Cardiovascular Exam Cardiovascular Exam: REGULAR RHYTHM, RRR, +S1, +S2. absent: Murmur - GI/Abdominal Exam GI & Abdominal Exam: Soft, Normal Bowel Sounds. absent: Tenderness - Extremities Exam Extremities Exam: Full ROM, Normal Capillary Refill, Normal Inspection. absent : Joint Swelling, Pedal Edema - Back Exam Back Exam: NORMAL INSPECTION - Neurological Exam Neurological Exam: Abnormal Gait, Alert, Awake, CN II-XII Intact, Oriented x3 - Psychiatric Exam Psychiatric exam: Normal Affect, Normal Mood - Skin Skin Exam: Dry, Intact, Normal Color, Warm Assessment and Plan (1) DVT prophylaxis Status: Acute (2) Constipation Status: Acute (3) Brain tumor Status: Acute (4) CVA (cerebral vascular accident) Status: Acute - Assessment and Plan (Free Text) Assessment: (1) DVT prophylaxis Assessment and Plan: scd and ae hose lovenox Status: Acute (2) Constipation Assessment and Plan: resolved Status: Acute (3) Brain tumor Assessment and Plan: s/p craniotomy, here for rehab cont meds, obtain all records from [facility], to be d/c w/ surgeon this week Status: Acute (4) CVA (cerebral vascular accident) Assessment and Plan: cont meds neuro consult appriciated pt/ot depakote, asa Status: Acute 5-blurry vision-resolved, ct normal, will follow psychology note appriciated. cont pt/ot ant dc next week
--- NOTE | 2017-09-13 11:33 | CP.PCM.PN ---
Subjective - Date & Time of Evaluation Date of Evaluation: 09/13/17 Time of Evaluation: 11:33 - Subjective Subjective: Ms. Gomez was seen and examined at the bedside. She is alert, oriented in all spheres. She headache, dizziness, blurred vision, lightheadedness, nausea, or vomiting. She also verbalize that her appointment with her neurosurgeon showed benign and will follow up with his neurosurgeon post discharge from rehab. She remains with mild left side droop, left upper extremity flaccidity, left lower extremity weakness which is it improving. She is able to raise minimally her left LLE. She is on bilateral lower extremities SCD's and elizabeth stockings. Latest Valproic level is 76.7. There was no untoward events overnight. Objective - Vital Signs/Intake and Output Vital Signs (last 24 hours): Temp Pulse Resp BP Pulse Ox 98.3 F 69 20 110/60 97 09/13/17 08:53 09/13/17 08:53 09/13/17 08:53 09/13/17 08:53 09/13/17 08:53 - Medications Medications: Current Medications Aspirin (Aspirin Chewable) 81 mg PO DAILY [facility] Last Admin: 09/13/17 08:32 Dose: 81 mg Bacitracin (Bacitracin Oint) 1 applic TOP DAILY [facility] Last Admin: 09/13/17 08:31 Dose: Not Given Clotrimazole (Lotrimin 1% Cream) 1 applic TOP BID [facility] Last Admin: 09/13/17 08:30 Dose: 1 applic Docusate Sodium (Colace) 100 mg PO BID [facility] Last Admin: 09/13/17 08:32 Dose: 100 mg Enoxaparin Sodium (Lovenox) 40 mg SC DAILY [facility] PRN Reason: Protocol Last Admin: 09/13/17 08:31 Dose: 40 mg Famotidine (Pepcid) 20 mg PO BID [facility] Last Admin: 09/13/17 08:33 Dose: 20 mg Magnesium Oxide (Mag-Ox) 400 mg PO BID [facility] Last Admin: 09/13/17 08:33 Dose: 400 mg Metoclopramide HCl (Reglan) 10 mg PO DAILY@1130 [facility] Last Admin: 09/12/17 11:54 Dose: 10 mg Multivitamins/Minerals (Therapeutic-M Tab) 1 tab PO DAILY [facility] Last Admin: 09/13/17 08:33 Dose: 1 tab Oxycodone/Acetaminophen (Percocet 5/325 Mg Tab) 1 tab PO Q6 PRN PRN Reason: Pain, moderate (4-7) Stop: 09/14/17 10:35 Last Admin: 09/12/17 21:50 Dose: 1 tab Oxycodone/Acetaminophen (Percocet 5/325 Mg Tab) 2 tab PO Q6 PRN PRN Reason: Pain, severe (8-10) Stop: 09/14/17 10:35 Last Admin: 09/12/17 08:58 Dose: 2 tab Sennosides (Senokot Tab) 17.2 mg PO HS [facility] Last Admin: 09/12/17 21:49 Dose: 17.2 mg Tobramycin/Dexamethasone (Tobradex Opht Susp) 1 drop OU Q6 [facility] Last Admin: 09/13/17 06:50 Dose: 1 drop Valproate Sodium (Depakene Cap) 750 mg PO Q12 [facility] Last Admin: 09/13/17 08:33 Dose: 750 mg - Labs Labs: 09/12/17 05:15 09/12/17 05:15 - Constitutional Appears: No Acute Distress - Head Exam Head Exam: NORMAL INSPECTION - Neurological Exam Neurological Exam: Alert, Awake Neuro motor strength exam: Left Upper Extremity: 0, Right Upper Extremity: 5, Left Lower Extremity: 3, Right Lower Extremity: 5 Additional comments: Neurological unchanged from previous examination. Assessment and Plan (1) CVA (cerebral vascular accident) Assessment & Plan: Case discussed with Dr. Montes, continue all current medical including AED, physical, occupational, and speech therapies. Recommend to monitor valproic level prior to discharge. Status: Acute
--- NOTE | 2017-09-13 12:59 | CP.PCM.PN ---
Subjective - Date & Time of Evaluation Date of Evaluation: 09/13/17 Time of Evaluation: 12:58 - Subjective Subjective: Patient seen in the room very happy with progress celine have been taken out how grade glioma and told to watch getting some movement in the UE now left LE is easily anti-gravity now no pain and she agreed to stop percocet Objective - Vital Signs/Intake and Output Vital Signs (last 24 hours): Temp Pulse Resp BP Pulse Ox 98.3 F 69 20 110/60 97 09/13/17 08:53 09/13/17 08:53 09/13/17 08:53 09/13/17 08:53 09/13/17 08:53 - Medications Medications: Current Medications Aspirin (Aspirin Chewable) 81 mg PO DAILY [facility] Last Admin: 09/13/17 08:32 Dose: 81 mg Bacitracin (Bacitracin Oint) 1 applic TOP DAILY [facility] Last Admin: 09/13/17 08:31 Dose: Not Given Clotrimazole (Lotrimin 1% Cream) 1 applic TOP BID [facility] Last Admin: 09/13/17 08:30 Dose: 1 applic Docusate Sodium (Colace) 100 mg PO BID [facility] Last Admin: 09/13/17 08:32 Dose: 100 mg Enoxaparin Sodium (Lovenox) 40 mg SC DAILY [facility] PRN Reason: Protocol Last Admin: 09/13/17 08:31 Dose: 40 mg Famotidine (Pepcid) 20 mg PO BID [facility] Last Admin: 09/13/17 08:33 Dose: 20 mg Magnesium Oxide (Mag-Ox) 400 mg PO BID [facility] Last Admin: 09/13/17 08:33 Dose: 400 mg Metoclopramide HCl (Reglan) 10 mg PO DAILY@1130 [facility] Last Admin: 09/13/17 12:28 Dose: 10 mg Multivitamins/Minerals (Therapeutic-M Tab) 1 tab PO DAILY [facility] Last Admin: 09/13/17 08:33 Dose: 1 tab Oxycodone/Acetaminophen (Percocet 5/325 Mg Tab) 1 tab PO Q6 PRN PRN Reason: Pain, moderate (4-7) Stop: 09/14/17 10:35 Last Admin: 09/12/17 21:50 Dose: 1 tab Oxycodone/Acetaminophen (Percocet 5/325 Mg Tab) 2 tab PO Q6 PRN PRN Reason: Pain, severe (8-10) Stop: 09/14/17 10:35 Last Admin: 09/12/17 08:58 Dose: 2 tab Sennosides (Senokot Tab) 17.2 mg PO HS [facility] Last Admin: 09/12/17 21:49 Dose: 17.2 mg Tobramycin/Dexamethasone (Tobradex Opht Susp) 1 drop OU Q6 [facility] Last Admin: 09/13/17 12:28 Dose: 1 drop Valproate Sodium (Depakene Cap) 750 mg PO Q12 [facility] Last Admin: 09/13/17 08:33 Dose: 750 mg - Labs Labs: 09/12/17 05:15 09/12/17 05:15
[2017-09-14] MEDS: Dexamethasone/Tobramycin Ophth Susp OU SCH ×4 (00:02→17:14)
[2017-09-14] MEDS: Multivitamin With Minerals Tab PO SCH (08:50)
[2017-09-14] MEDS: Magnesium Oxide 400 mg Tab UD PO SCH ×2 (08:51→17:14)
[2017-09-14] MEDS: Enoxaparin 40 mg Syringe SC SCH (08:51)
[2017-09-14] MEDS: Bacitracin OINT 15GM TOP SCH (08:51)
--- NOTE | 2017-09-14 19:28 | CP.PCM.PN ---
Subjective - Date & Time of Evaluation Date of Evaluation: 09/14/17 Time of Evaluation: 10:00 - Subjective Subjective: no acute complaints at present Objective - Vital Signs/Intake and Output Vital Signs (last 24 hours): Temp Pulse Resp BP Pulse Ox 97.3 F L 63 20 104/51 L 97 09/14/17 08:39 09/14/17 08:39 09/14/17 08:39 09/14/17 08:39 09/14/17 08:39 - Medications Medications: Current Medications Aspirin (Aspirin Chewable) 81 mg PO DAILY [facility] Last Admin: 09/14/17 08:51 Dose: 81 mg Bacitracin (Bacitracin Oint) 1 applic TOP DAILY [facility] Last Admin: 09/14/17 08:51 Dose: 1 applic Clotrimazole (Lotrimin 1% Cream) 1 applic TOP BID [facility] Last Admin: 09/14/17 17:14 Dose: 1 applic Docusate Sodium (Colace) 100 mg PO BID [facility] Last Admin: 09/14/17 17:14 Dose: 100 mg Enoxaparin Sodium (Lovenox) 40 mg SC DAILY [facility] PRN Reason: Protocol Last Admin: 09/14/17 08:51 Dose: 40 mg Famotidine (Pepcid) 20 mg PO BID [facility] Last Admin: 09/14/17 17:14 Dose: 20 mg Magnesium Oxide (Mag-Ox) 400 mg PO BID [facility] Last Admin: 09/14/17 17:14 Dose: 400 mg Metoclopramide HCl (Reglan) 10 mg PO DAILY@1130 [facility] Last Admin: 09/14/17 12:16 Dose: 10 mg Multivitamins/Minerals (Therapeutic-M Tab) 1 tab PO DAILY [facility] Last Admin: 09/14/17 08:50 Dose: 1 tab Sennosides (Senokot Tab) 17.2 mg PO HS [facility] Last Admin: 09/13/17 21:39 Dose: 17.2 mg Tobramycin/Dexamethasone (Tobradex Opht Susp) 1 drop OU Q6 [facility] Last Admin: 09/14/17 17:14 Dose: 1 drop Valproate Sodium (Depakene Cap) 750 mg PO Q12 [facility] Last Admin: 09/14/17 09:37 Dose: 750 mg - Labs Labs: 09/12/17 05:15 09/12/17 05:15 - Head Exam Head Exam: ATRAUMATIC, NORMAL INSPECTION, NORMOCEPHALIC - Eye Exam Eye Exam: EOMI, Normal appearance Pupil Exam: NORMAL ACCOMODATION, PERRL - ENT Exam ENT Exam: Mucous Membranes Moist, Normal Exam - Neck Exam Neck Exam: Full ROM - Respiratory Exam Respiratory Exam: Clear to Ausculation Bilateral, NORMAL BREATHING PATTERN - Cardiovascular Exam Cardiovascular Exam: REGULAR RHYTHM - GI/Abdominal Exam GI & Abdominal Exam: Soft, Normal Bowel Sounds - Rectal Exam Rectal Exam: NORMAL INSPECTION - Exam External exam: NORMAL EXTERNAL EXAM - Extremities Exam Extremities Exam: Normal Capillary Refill, Normal Inspection - Back Exam Back Exam: NORMAL INSPECTION - Neurological Exam Neurological Exam: Alert, Awake - Psychiatric Exam Psychiatric exam: Normal Affect - Skin Skin Exam: Normal Color Assessment and Plan (1) Constipation Status: Acute (2) DVT prophylaxis Status: Acute (3) Glioma of brain Status: Resolved (4) Brain tumor Status: Acute (5) CVA (cerebral vascular accident) Assessment & Plan: plan for physical, occupational rec therapy covering for Dr. Lee for today Status: Acute (6) Dizziness Status: Acute (7) Headache Status: Acute (8) Otitis externa Status: Acute
[2017-09-15] MEDS: Dexamethasone/Tobramycin Ophth Susp OU SCH ×4 (00:07→17:02)
[2017-09-15 07:25] LABS: HEMOGLOBIN 12.3 g/dL (12.0-16.0); MEAN CELL VOLUME 92.4 fl (81.0-99.0); MEAN CORPUSCULAR HEMOGLOBIN 31.4 pg (27.0-31.0); MEAN CORPUSCULAR HGB CONC 33.9 g/dL (33.0-37.0); RBC 3.92 Mil/uL (3.80-5.20); RED CELL DISTRIBUTION WIDTH 14.1 % (11.5-14.5); WHITE BLOOD COUNT 3.5 K/uL (4.8-10.8)
[2017-09-15 07:33] LABS: BLOOD UREA NITROGEN 12 mg/dl (7-17); CALCIUM 9.2 mg/dL (8.4-10.2); GFR AFRICAN-AMERICAN > 60; GFR NON-AFRICAN AMERICAN > 60
[2017-09-15] MEDS: Enoxaparin 40 mg Syringe SC SCH (08:33)
[2017-09-15] MEDS: Magnesium Oxide 400 mg Tab UD PO SCH ×2 (08:34→17:03)
[2017-09-15] MEDS: Multivitamin With Minerals Tab PO SCH (08:34)
[2017-09-15] MEDS: Bacitracin OINT 15GM TOP SCH (08:34)
--- NOTE | 2017-09-15 13:41 | CP.PCM.PN ---
Subjective - Date & Time of Evaluation Date of Evaluation: 09/15/17 Time of Evaluation: 13:39 - Subjective Subjective: doing well, improving rom left side. no headache, cp ,dizziness, blurry vision. bw noted cosnults appriciated. Objective - Vital Signs/Intake and Output Vital Signs (last 24 hours): Temp Pulse Resp BP Pulse Ox 97.4 F L 69 69 H 109/73 18 L 09/15/17 08:22 09/15/17 08:22 09/15/17 08:22 09/15/17 08:22 09/15/17 08:22 - Medications Medications: Current Medications Acetaminophen (Tylenol 325mg Tab) 650 mg PO Q6 PRN PRN Reason: Headache Aspirin (Aspirin Chewable) 81 mg PO DAILY [facility] Last Admin: 09/15/17 08:34 Dose: 81 mg Bacitracin (Bacitracin Oint) 1 applic TOP DAILY [facility] Last Admin: 09/15/17 08:34 Dose: 1 applic Clotrimazole (Lotrimin 1% Cream) 1 applic TOP BID [facility] Last Admin: 09/15/17 08:35 Dose: 1 applic Docusate Sodium (Colace) 100 mg PO BID [facility] Last Admin: 09/15/17 08:34 Dose: 100 mg Enoxaparin Sodium (Lovenox) 40 mg SC DAILY [facility] PRN Reason: Protocol Last Admin: 09/15/17 08:33 Dose: 40 mg Famotidine (Pepcid) 20 mg PO BID [facility] Last Admin: 09/15/17 08:34 Dose: 20 mg Magnesium Oxide (Mag-Ox) 400 mg PO BID [facility] Last Admin: 09/15/17 08:34 Dose: 400 mg Metoclopramide HCl (Reglan) 10 mg PO DAILY@1130 [facility] Last Admin: 09/15/17 12:12 Dose: 10 mg Multivitamins/Minerals (Therapeutic-M Tab) 1 tab PO DAILY [facility] Last Admin: 09/15/17 08:34 Dose: 1 tab Sennosides (Senokot Tab) 17.2 mg PO HS [facility] Last Admin: 09/14/17 21:49 Dose: 17.2 mg Tobramycin/Dexamethasone (Tobradex Opht Susp) 1 drop OU Q6 [facility] Last Admin: 09/15/17 12:11 Dose: 1 drop Valproate Sodium (Depakene Cap) 750 mg PO Q12 [facility] Last Admin: 09/15/17 08:34 Dose: 750 mg - Labs Labs: 09/15/17 05:30 09/15/17 05:30 - Constitutional Appears: Well, Non-toxic, No Acute Distress - Head Exam Head Exam: ATRAUMATIC, NORMAL INSPECTION, NORMOCEPHALIC - Eye Exam Eye Exam: EOMI, Normal appearance, PERRL Pupil Exam: NORMAL ACCOMODATION, PERRL - ENT Exam ENT Exam: Mucous Membranes Moist, Normal Exam - Neck Exam Neck Exam: Full ROM, Normal Inspection. absent: Lymphadenopathy - Respiratory Exam Respiratory Exam: Clear to Ausculation Bilateral, NORMAL BREATHING PATTERN - Cardiovascular Exam Cardiovascular Exam: REGULAR RHYTHM, RRR, +S1, +S2. absent: Murmur - GI/Abdominal Exam GI & Abdominal Exam: Soft, Normal Bowel Sounds. absent: Tenderness - Extremities Exam Extremities Exam: Full ROM, Normal Capillary Refill, Normal Inspection. absent : Joint Swelling, Pedal Edema - Back Exam Back Exam: NORMAL INSPECTION - Neurological Exam Neurological Exam: Abnormal Gait, Alert, Awake, CN II-XII Intact, Oriented x3 Neuro motor strength exam: Left Upper Extremity: 4, Right Upper Extremity: 5, Left Lower Extremity: 4, Right Lower Extremity: 5 - Psychiatric Exam Psychiatric exam: Normal Affect, Normal Mood - Skin Skin Exam: Dry, Intact, Normal Color, Warm Assessment and Plan (1) DVT prophylaxis Status: Acute (2) Constipation Status: Acute (3) Brain tumor Status: Acute (4) CVA (cerebral vascular accident) Status: Acute - Assessment and Plan (Free Text) Assessment: (1) DVT prophylaxis Assessment and Plan: scd and ae hose lovenox Status: Acute (2) Constipation Assessment and Plan: resolved Status: Acute (3) Brain tumor Assessment and Plan: s/p craniotomy, here for rehab cont meds, obtain all records from [facility], neuro, antiepileptics Status: Acute (4) CVA (cerebral vascular accident) Assessment and Plan: cont meds neuro consult appriciated pt/ot depakote, asa Status: Acute 5-blurry vision-resolved, ct normal, will follow nofurther episode psychology note appriciated. cont pt/ot ant dc next week
[2017-09-16] MEDS: Dexamethasone/Tobramycin Ophth Susp OU SCH ×4 (00:16→17:10)
[2017-09-16] MEDS: Bacitracin OINT 15GM TOP SCH (09:05)
[2017-09-16] MEDS: Enoxaparin 40 mg Syringe SC SCH (09:07)
[2017-09-16] MEDS: Magnesium Oxide 400 mg Tab UD PO SCH ×2 (09:08→17:11)
[2017-09-16] MEDS: Multivitamin With Minerals Tab PO SCH (09:08)
--- NOTE | 2017-09-16 11:04 | CP.PCM.PN ---
Subjective - Date & Time of Evaluation Date of Evaluation: 09/16/17 Time of Evaluation: 11:03 - Subjective Subjective: Ms. Gomez was seen and examined at the bedside. She is alert, oriented in all spheres. She denies headache, dizziness, blurred vision, lightheadedness, nausea , or vomiting. She remains with mild left side droop, left upper extremity flaccidity, left lower extremity weakness which is it improving. She is able to raise minimally her left LLE. She is on bilateral lower extremities SCD's and elizabeth stockings. There was no untoward events overnight. Objective - Vital Signs/Intake and Output Vital Signs (last 24 hours): Temp Pulse Resp BP Pulse Ox 97.3 F L 82 20 111/68 97 09/15/17 20:00 09/15/17 20:00 09/15/17 20:00 09/15/17 20:00 09/15/17 20:00 - Medications Medications: Current Medications Acetaminophen (Tylenol 325mg Tab) 650 mg PO Q6 PRN PRN Reason: Headache Aspirin (Aspirin Chewable) 81 mg PO DAILY [facility] Last Admin: 09/16/17 09:05 Dose: 81 mg Bacitracin (Bacitracin Oint) 1 applic TOP DAILY [facility] Last Admin: 09/16/17 09:05 Dose: 1 applic Clotrimazole (Lotrimin 1% Cream) 1 applic TOP BID [facility] Last Admin: 09/16/17 09:07 Dose: 1 applic Docusate Sodium (Colace) 100 mg PO BID [facility] Last Admin: 09/16/17 09:06 Dose: 100 mg Enoxaparin Sodium (Lovenox) 40 mg SC DAILY [facility] PRN Reason: Protocol Last Admin: 09/16/17 09:07 Dose: 40 mg Famotidine (Pepcid) 20 mg PO BID [facility] Last Admin: 09/16/17 09:08 Dose: 20 mg Magnesium Oxide (Mag-Ox) 400 mg PO BID [facility] Last Admin: 09/16/17 09:08 Dose: 400 mg Metoclopramide HCl (Reglan) 10 mg PO DAILY@1130 [facility] Last Admin: 09/15/17 12:12 Dose: 10 mg Multivitamins/Minerals (Therapeutic-M Tab) 1 tab PO DAILY [facility] Last Admin: 09/16/17 09:08 Dose: 1 tab Sennosides (Senokot Tab) 17.2 mg PO HS [facility] Last Admin: 09/15/17 21:41 Dose: 17.2 mg Tobramycin/Dexamethasone (Tobradex Opht Susp) 1 drop OU Q6 [facility] Last Admin: 09/16/17 06:54 Dose: 1 drop Valproate Sodium (Depakene Cap) 750 mg PO Q12 [facility] Last Admin: 09/16/17 09:06 Dose: 750 mg - Labs Labs: 09/15/17 05:30 09/15/17 05:30 - Constitutional Appears: No Acute Distress - Head Exam Head Exam: NORMAL INSPECTION - Neurological Exam Neurological Exam: Alert, Awake, Oriented x3 Neuro motor strength exam: Left Upper Extremity: 0, Right Upper Extremity: 5, Left Lower Extremity: 3, Right Lower Extremity: 5 Additional comments: Neurological unchanged from previous examination. Assessment and Plan (1) CVA (cerebral vascular accident) Assessment & Plan: Case discussed with Dr. Rodriguez, continue all current medical including AED, physical, occupational, and speech therapies. Recommend to monitor valproic level prior to discharge. Status: Acute
--- NOTE | 2017-09-16 18:41 | CP.PCM.PN ---
Subjective - Date & Time of Evaluation Date of Evaluation: 09/16/17 Time of Evaluation: 18:40 - Subjective Subjective: Patient seen in the room, doing well and in good spirits some synergistic movement in the left proximal shoulder/elbow no hand movement yet continue current care Objective - Vital Signs/Intake and Output Vital Signs (last 24 hours): Temp Pulse Resp BP Pulse Ox 98.2 F 85 20 99/63 L 98 09/16/17 10:00 09/16/17 10:00 09/16/17 10:00 09/16/17 10:00 09/16/17 10:00 - Medications Medications: Current Medications Acetaminophen (Tylenol 325mg Tab) 650 mg PO Q6 PRN PRN Reason: Headache Aspirin (Aspirin Chewable) 81 mg PO DAILY [facility] Last Admin: 09/16/17 09:05 Dose: 81 mg Bacitracin (Bacitracin Oint) 1 applic TOP DAILY [facility] Last Admin: 09/16/17 09:05 Dose: 1 applic Clotrimazole (Lotrimin 1% Cream) 1 applic TOP BID [facility] Last Admin: 09/16/17 17:11 Dose: 1 applic Docusate Sodium (Colace) 100 mg PO BID [facility] Last Admin: 09/16/17 17:10 Dose: 100 mg Enoxaparin Sodium (Lovenox) 40 mg SC DAILY [facility] PRN Reason: Protocol Last Admin: 09/16/17 09:07 Dose: 40 mg Famotidine (Pepcid) 20 mg PO BID [facility] Last Admin: 09/16/17 17:11 Dose: 20 mg Magnesium Oxide (Mag-Ox) 400 mg PO BID [facility] Last Admin: 09/16/17 17:11 Dose: 400 mg Metoclopramide HCl (Reglan) 10 mg PO DAILY@1130 [facility] Last Admin: 09/16/17 12:27 Dose: 10 mg Multivitamins/Minerals (Therapeutic-M Tab) 1 tab PO DAILY [facility] Last Admin: 09/16/17 09:08 Dose: 1 tab Sennosides (Senokot Tab) 17.2 mg PO HS [facility] Last Admin: 09/15/17 21:41 Dose: 17.2 mg Tobramycin/Dexamethasone (Tobradex Opht Susp) 1 drop OU Q6 [facility] Last Admin: 09/16/17 17:10 Dose: 1 drop Valproate Sodium (Depakene Cap) 750 mg PO Q12 [facility] Last Admin: 09/16/17 09:06 Dose: 750 mg - Labs Labs: 09/15/17 05:30 09/15/17 05:30
[2017-09-17] MEDS: Dexamethasone/Tobramycin Ophth Susp OU SCH ×4 (00:04→17:05)
--- NOTE | 2017-09-17 08:15 | CP.PCM.PN ---
Subjective - Date & Time of Evaluation Date of Evaluation: 09/17/17 Time of Evaluation: 08:14 - Subjective Subjective: pt doign well, incr rom to left side. no f/c, n/v/d. bw noted all consults appriciated. Objective - Vital Signs/Intake and Output Vital Signs (last 24 hours): Temp Pulse Resp BP Pulse Ox 98.4 F 80 20 120/80 98 09/16/17 20:00 09/16/17 20:00 09/16/17 20:00 09/16/17 20:00 09/16/17 20:00 - Medications Medications: Current Medications Acetaminophen (Tylenol 325mg Tab) 650 mg PO Q6 PRN PRN Reason: Headache Aspirin (Aspirin Chewable) 81 mg PO DAILY [facility] Last Admin: 09/16/17 09:05 Dose: 81 mg Bacitracin (Bacitracin Oint) 1 applic TOP DAILY [facility] Last Admin: 09/16/17 09:05 Dose: 1 applic Clotrimazole (Lotrimin 1% Cream) 1 applic TOP BID [facility] Last Admin: 09/16/17 17:11 Dose: 1 applic Docusate Sodium (Colace) 100 mg PO BID [facility] Last Admin: 09/16/17 17:10 Dose: 100 mg Enoxaparin Sodium (Lovenox) 40 mg SC DAILY [facility] PRN Reason: Protocol Last Admin: 09/16/17 09:07 Dose: 40 mg Famotidine (Pepcid) 20 mg PO BID [facility] Last Admin: 09/16/17 17:11 Dose: 20 mg Magnesium Oxide (Mag-Ox) 400 mg PO BID [facility] Last Admin: 09/16/17 17:11 Dose: 400 mg Metoclopramide HCl (Reglan) 10 mg PO DAILY@1130 [facility] Last Admin: 09/16/17 12:27 Dose: 10 mg Multivitamins/Minerals (Therapeutic-M Tab) 1 tab PO DAILY [facility] Last Admin: 09/16/17 09:08 Dose: 1 tab Sennosides (Senokot Tab) 17.2 mg PO HS [facility] Last Admin: 09/16/17 21:42 Dose: 17.2 mg Tobramycin/Dexamethasone (Tobradex Opht Susp) 1 drop OU Q6 [facility] Last Admin: 09/17/17 06:46 Dose: 1 drop Valproate Sodium (Depakene Cap) 750 mg PO Q12 [facility] Last Admin: 09/16/17 21:41 Dose: 750 mg - Labs Labs: 09/15/17 05:30 09/15/17 05:30 - Constitutional Appears: Well, Non-toxic, No Acute Distress - Head Exam Head Exam: ATRAUMATIC, NORMAL INSPECTION, NORMOCEPHALIC - Eye Exam Eye Exam: EOMI, Normal appearance, PERRL Pupil Exam: NORMAL ACCOMODATION, PERRL - ENT Exam ENT Exam: Mucous Membranes Moist, Normal Exam - Neck Exam Neck Exam: Full ROM, Normal Inspection. absent: Lymphadenopathy - Respiratory Exam Respiratory Exam: Clear to Ausculation Bilateral, NORMAL BREATHING PATTERN - Cardiovascular Exam Cardiovascular Exam: REGULAR RHYTHM, RRR, +S1, +S2. absent: Murmur - GI/Abdominal Exam GI & Abdominal Exam: Soft, Normal Bowel Sounds. absent: Tenderness - Exam Speculum exam: NORMAL SPECULUM EXAM - Extremities Exam Extremities Exam: Full ROM, Normal Capillary Refill, Normal Inspection. absent : Joint Swelling, Pedal Edema - Back Exam Back Exam: NORMAL INSPECTION - Neurological Exam Neurological Exam: Alert, Awake, CN II-XII Intact, Normal Gait, Oriented x3 Neuro motor strength exam: Left Upper Extremity: 4, Right Upper Extremity: 5, Left Lower Extremity: 4, Right Lower Extremity: 5 - Psychiatric Exam Psychiatric exam: Normal Affect, Normal Mood - Skin Skin Exam: Dry, Intact, Normal Color, Warm Assessment and Plan (1) DVT prophylaxis Status: Acute (2) Constipation Status: Acute (3) Brain tumor Status: Acute (4) CVA (cerebral vascular accident) Status: Acute - Assessment and Plan (Free Text) Assessment: (1) DVT prophylaxis Assessment and Plan: scd and ae hose lovenox Status: Acute (2) Constipation Assessment and Plan: resolved Status: Acute (3) Brain tumor Assessment and Plan: s/p craniotomy, here for rehab cont meds, obtain all records from [facility], neuro, antiepileptics monitor levels Status: Acute (4) CVA (cerebral vascular accident) Assessment and Plan: cont meds neuro consult appriciated pt/ot depakote, asa Status: Acute 5-blurry vision-resolved, ct normal, will follow nofurther episode psychology note appriciated. cont all therapies
[2017-09-17] MEDS: Bacitracin OINT 15GM TOP SCH (09:02)
[2017-09-17] MEDS: Enoxaparin 40 mg Syringe SC SCH (09:03)
[2017-09-17] MEDS: Multivitamin With Minerals Tab PO SCH (09:05)
[2017-09-17] MEDS: Magnesium Oxide 400 mg Tab UD PO SCH ×2 (09:05→16:40)
--- NOTE | 2017-09-17 13:16 | PSY.TMCNF ---
Nursing - Vital Signs Vital Signs (Last 8 hours): Vital Signs 09/17/17 09/17/17 09:00 10:00 Temperature 97.9 F 97.9 F Pulse Rate 74 74 Respiratory 20 20 Rate Blood Pressure 140/69 140/69 O2 Sat by Pulse 99 Oximetry Pain: 0 - Precautions: Precautions: Fall Prevention, Pressure Ulcer, Seizure - Medications/Other Issues Comment: Safety, headache - Consults Comment: Dr. Lee, Dr. Chung, Dr. Marshall, Dr. Montes - Skin Incision Site: Right Parietal Dressing Status: Clean, Dry, Intact Incision: Healing Well Incision Line Treatment: GIGI - Toileting Toileting: Minimal Assistance - Bladder Management Bladder Pattern: Normal Voiding Method: Toilet - Bowel Management Bowel Pattern: Normal Bowel Management: Supervision Frequency of Accidents: 0 - Transfers Transfers: Supervision - ADL's ADL's: Minimal Assistance - Pain Management Comments: Percocet PRN - Patient/Family Teaching Comments: Care post CVA and Craniotomy, Safety Precautions - Goals/Time Frame Comments: Per multidisciplinary care plan and goals - Provider Provider: Spring DURANn RN CRRN Physical Therapy - Bed Mobility Bed Mobility: Contact Guard - Transfers Wheelchair to Mat: Contact Guard Sit to Stand: Contact Guard - Ambulation Level of Assistance: Minimal Assistance Distance (ft.): 140 Assistive Devices: Narrow base quad cane - Stair Negotiation Stairs: Level of Assistance: Verbal Cues, Minimal Assistance Number of Stairs: 12 Handrails: Right - Standing Balance Static Stand: Contact Guard Assist Dynamic Stand: Minimal Assistance, Moderate Assistance - Pain Pain (assessed during therapy session): 0 - Insight/Carryover Insight/Carryover: Good - Patient/Family Education Comment: Pt education for CVA recovery, safety, d/c recommendations. Caregiver training with daughter scheduled for 09/17/17 - Assessment/Plan Assessment: Pt continues to be agreeable to participate in recreation therapy sessions. Pt's mood state and arousal level has improved throughout her stay on unit. Pt presents with L side weakness; however, her L side visual inattention has improved during leisure tasks. Pt's current goal is to write and utilize R hand while improving strength and motor control with L hand. Will continue to encourage pt to participate in leisure tasks. - Goals Timeframe: 10 days Goals: Sit < > supine mod I. Sit < > stand mod I with NBQC. Pt will ambualte 200 ft mod I with NBQC. Pt will ascend/descend flight of stairs with handrail mod I - Provider License Number: [id number] Occupational Therapy - Arousal/Attention/Orientation Patient Orientation: Person, Place, Time, Appropriate to Age, Appropriate to Situation - ADL/IADL Self Feeding: Supervision, Verbal Cues, Set-up Help Grooming: Verbal Cues, Set-up Help, Minimal Assistance Bathing-Upper Extremity: Supervision, Verbal Cues, Set-up Help Bathing-Lower Extremity: Verbal Cues, Set-up Help, Contact Guard Dressing-Upper Extremity: Supervision, Set-up Help Dressing-Lower Extremity: Verbal Cues, Set-up Help, Minimal Assistance Comment: jose d dressing technique utilized. - Sitting Balance Static Sitting: Supervision Dynamic Sitting: Requires supervision - Transfers Wheelchair to Bed Transfers: Contact Guard Toilet Transfers: Verbal Cues, Set-up Help, Contact Guard Tub Transfers: Contact Guard Comment: uses tub transfer bench w/in step over tub . - Wheelchair Management Level of Assistance: Minimal Assistance Distance (ft.): 150 - Upper Extremity Status Right Upper Extremity Comment: AROM is WFLS Left Upper Extremity Comment: PROM is WFLS. AROM improvements in gravity eliminated plane as follows: 0/5 shoulder flexion. 2-/5 shoulder extension. 0 /5 shoulder abduction. 2-/5 shoulder adduction. 2-/5 elbow flexion. 0/5 elbow extension. no movement noted in forearm/wrist/fingers. - Pain Pain (assessed during therapy session): 0 - Insight/Carryover Insight/Carryover: Good - Patient/Family Education Comment: Pt education for CVA recovery, safety, d/c recommendations. Caregiver training with daughter scheduled for 09/17/17 - Assessment/Plan Assessment: Pt continues to be agreeable to participate in recreation therapy sessions. Pt's mood state and arousal level has improved throughout her stay on unit. Pt presents with L side weakness; however, her L side visual inattention has improved during leisure tasks. Pt's current goal is to write and utilize R hand while improving strength and motor control with L hand. Will continue to encourage pt to participate in leisure tasks. - Goals Timeframe: 10 days Goals: Sit < > supine mod I. Sit < > stand mod I with NBQC. Pt will ambualte 200 ft mod I with NBQC. 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 -minimal to mild oral dysphagia - Assessment Memory Impairment: Mild Dysphagia/Swallowing Impairment: Mild - Plan Assessment: Pt continues to be agreeable to participate in recreation therapy sessions. Pt's mood state and arousal level has improved throughout her stay on unit. Pt presents with L side weakness; however, her L side visual inattention has improved during leisure tasks. Pt's current goal is to write and utilize R hand while improving strength and motor control with L hand. Will continue to encourage pt to participate in leisure tasks. - Provider Therapist: Virgie Vang License Number: [id number] Recreational Therapy - Participation Participation: Participates in Individual and/or Group Sessions, Monitors His/ Her Own Leisure Time - Attendance Attendance: 3-5 times per week - Activities Leisure Activities: Cards and Games - Socialization Level of Socialization: Initiates/interacts freely with care givers and peer - Assessment Assessment/Plan: Pt continues to be agreeable to participate in recreation therapy sessions. Pt's mood state and arousal level has improved throughout her stay on unit. Pt presents with L side weakness; however, her L side visual inattention has improved during leisure tasks. Pt's current goal is to write and utilize R hand while improving strength and motor control with L hand. Will continue to encourage pt to participate in leisure tasks. Problems Currently Limiting Participation: L side weakness, decrease leisure awareness level, decrease activity tolerance level, decrease endurance level Goals and Time Frame: Pt will be encouraged to participate in 1:1 and group recreation therapy sessions 3-5x week to improve activity activity tolerance level, visual awareness to the L side, direction following, arousal level, and attention to task. - Provider Therapist: Letty Johnson, [employer] #[id number] Nutrition - Current Diet Current Diet/ Supplement/ Feedings: 2 gram Na diet - Appetite Percent Meal Consumed: 75-100% - Comments Comments: Care post CVA and Craniotomy, Safety Precautions - Assessment/Goals/Time Frame Assessment/Goals/Time Frame: Safety, headache - Provider Provider: Rosalia Iniguez RD Case Management - Psychosocial Assessment Support Systems: Lives with 3 adult children -. Primary contact is daughter Christiane cell: [phone] Psychological Interventions/Needs: Pt is alert and oriented x3; requires encouragement at times to participate in therapy; Pt tearful when discussing condition - Psychology consulted Discharge Concerns: Pt has approximately 10 steps to enter and with flaccid left upper extremity; pt's insurance terminated as of 09/02/17 - CM to speak with insurance for possible reinstatement Patient/Family Meeting: CM met with pt and rehab team Intervention/Goal/Outcome:: 1. Tentative discharge date: 09/21 pending insurance authorization; Plan: home with skilled homecare. 3. continued emotional support and encouragement 4. LAD 09/12/17; Updates to be sent at that time. 5. Clarify insurance eligibility for discharge planning. 6. DME needs. 7. f/u appts. - Discharge Plan Discharge Plan: Home with significant other/family, Home with services - Provider Provider: JAI Maynard, [employer] VICE PRESIDENT License Number: [id number] Rehabilitation Plan - Treatment Plan Treatment Plan: Physical Therapy, Occupational Therapy, Dietary, Patient/Family Education - Discharge Plan Estimated Date of Discharge: 09/21/17 Discharge to: Home
--- NOTE | 2017-09-17 13:34 | CP.PCM.PN ---
Subjective - Date & Time of Evaluation Date of Evaluation: 09/17/17 Time of Evaluation: 13:33 - Subjective Subjective: Patient seen in the room very happy and remains a motivated excellent rehab patient no pain no dizziness at this time and little visual complaints continue current care d/c 09/21/17 Objective - Vital Signs/Intake and Output Vital Signs (last 24 hours): Temp Pulse Resp BP Pulse Ox 97.9 F 74 20 140/69 99 09/17/17 10:00 09/17/17 10:00 09/17/17 10:00 09/17/17 10:00 09/17/17 10:00 - Medications Medications: Current Medications Acetaminophen (Tylenol 325mg Tab) 650 mg PO Q6 PRN PRN Reason: Headache Aspirin (Aspirin Chewable) 81 mg PO DAILY [facility] Last Admin: 09/17/17 09:04 Dose: 81 mg Bacitracin (Bacitracin Oint) 1 applic TOP DAILY [facility] Last Admin: 09/17/17 09:02 Dose: 1 applic Clotrimazole (Lotrimin 1% Cream) 1 applic TOP BID [facility] Last Admin: 09/17/17 09:03 Dose: 1 applic Docusate Sodium (Colace) 100 mg PO BID [facility] Last Admin: 09/17/17 09:04 Dose: 100 mg Enoxaparin Sodium (Lovenox) 40 mg SC DAILY [facility] PRN Reason: Protocol Last Admin: 09/17/17 09:03 Dose: 40 mg Famotidine (Pepcid) 20 mg PO BID [facility] Last Admin: 09/17/17 09:04 Dose: 20 mg Magnesium Oxide (Mag-Ox) 400 mg PO BID [facility] Last Admin: 09/17/17 09:05 Dose: 400 mg Metoclopramide HCl (Reglan) 10 mg PO DAILY@1130 [facility] Last Admin: 09/17/17 12:34 Dose: 10 mg Multivitamins/Minerals (Therapeutic-M Tab) 1 tab PO DAILY [facility] Last Admin: 09/17/17 09:05 Dose: 1 tab Sennosides (Senokot Tab) 17.2 mg PO HS [facility] Last Admin: 09/16/17 21:42 Dose: 17.2 mg Tobramycin/Dexamethasone (Tobradex Opht Susp) 1 drop OU Q6 [facility] Last Admin: 09/17/17 12:34 Dose: 1 drop Valproate Sodium (Depakene Cap) 750 mg PO Q12 [facility] Last Admin: 09/17/17 09:04 Dose: 750 mg - Labs Labs: 09/15/17 05:30 09/15/17 05:30
[2017-09-18] MEDS: Dexamethasone/Tobramycin Ophth Susp OU SCH ×3 (00:06→12:25)
[2017-09-18 07:17] LABS: BLOOD UREA NITROGEN 14 mg/dl (7-17); CALCIUM 8.7 mg/dL (8.4-10.2); GFR AFRICAN-AMERICAN > 60; GFR NON-AFRICAN AMERICAN > 60
[2017-09-18 07:23] LABS: HEMOGLOBIN 12.3 g/dL (12.0-16.0); MEAN CORPUSCULAR HGB CONC 33.7 g/dL (33.0-37.0); RBC 3.98 Mil/uL (3.80-5.20); RED CELL DISTRIBUTION WIDTH 13.9 % (11.5-14.5); WHITE BLOOD COUNT 3.8 K/uL (4.8-10.8)
[2017-09-18] MEDS: Enoxaparin 40 mg Syringe SC SCH (08:32)
[2017-09-18] MEDS: Magnesium Oxide 400 mg Tab UD PO SCH ×2 (08:33→16:37)
[2017-09-18] MEDS: Multivitamin With Minerals Tab PO SCH (08:33)
--- NOTE | 2017-09-18 12:09 | CP.PCM.PN ---
Subjective - Date & Time of Evaluation Date of Evaluation: 09/18/17 Time of Evaluation: 12:09 - Subjective Subjective: Ms. Gomez was seen and examined at the bedside. She is alert, oriented in all spheres. She denies headache, dizziness, blurred vision, lightheadedness, nausea , or vomiting. She is requesting to be discharge earlier than Saturday, informed the patient regarding having all the clearance from all disciplines. prior to discharge.She remains with mild left side droop, left upper extremity flaccidity, left lower extremity weakness which is it improving. She is able to raise minimally her left LLE. She is on bilateral lower extremities SCD's and elizabeth stockings. There was no untoward events overnight. Objective - Vital Signs/Intake and Output Vital Signs (last 24 hours): Temp Pulse Resp BP Pulse Ox 98.5 F 64 20 110/66 98 09/18/17 08:40 09/18/17 08:40 09/18/17 08:40 09/18/17 08:40 09/18/17 08:40 - Medications Medications: Current Medications Acetaminophen (Tylenol 325mg Tab) 650 mg PO Q6 PRN PRN Reason: Headache Last Admin: 09/17/17 16:38 Dose: 650 mg Aspirin (Aspirin Chewable) 81 mg PO DAILY [facility] Last Admin: 09/18/17 08:32 Dose: 81 mg Clotrimazole (Lotrimin 1% Cream) 1 applic TOP BID [facility] Last Admin: 09/18/17 08:31 Dose: 1 applic Docusate Sodium (Colace) 100 mg PO BID [facility] Last Admin: 09/18/17 08:32 Dose: 100 mg Enoxaparin Sodium (Lovenox) 40 mg SC DAILY [facility] PRN Reason: Protocol Last Admin: 09/18/17 08:32 Dose: 40 mg Famotidine (Pepcid) 20 mg PO BID [facility] Last Admin: 09/18/17 08:33 Dose: 20 mg Magnesium Oxide (Mag-Ox) 400 mg PO BID [facility] Last Admin: 09/18/17 08:33 Dose: 400 mg Metoclopramide HCl (Reglan) 10 mg PO DAILY@1130 [facility] Last Admin: 09/17/17 12:34 Dose: 10 mg Multivitamins/Minerals (Therapeutic-M Tab) 1 tab PO DAILY [facility] Last Admin: 09/18/17 08:33 Dose: 1 tab Sennosides (Senokot Tab) 17.2 mg PO HS [facility] Last Admin: 09/17/17 21:15 Dose: 17.2 mg Tobramycin/Dexamethasone (Tobradex Opht Susp) 1 drop OU Q6 [facility] Last Admin: 09/18/17 06:52 Dose: 1 drop Valproate Sodium (Depakene Cap) 750 mg PO Q12 [facility] Last Admin: 09/18/17 08:32 Dose: 750 mg - Labs Labs: 09/18/17 06:30 09/18/17 06:30 - Constitutional Appears: No Acute Distress - Head Exam Head Exam: NORMAL INSPECTION - Neurological Exam Neurological Exam: Alert, Awake, Oriented x3 Neuro motor strength exam: Left Upper Extremity: 0, Right Upper Extremity: 5, Left Lower Extremity: 2/1, Right Lower Extremity: 5 Additional comments: Neurological unchanged from previous examination. Assessment and Plan (1) CVA (cerebral vascular accident) Assessment & Plan: Case discussed with Dr. Rodriguez, continue all current medical including AED, physical, occupational, and speech therapies. Recommend to monitor valproic level prior to discharge.Recommend to follow up with Dr. Montes at [address] [facility] [address]. [facility] [address] tel. [phone] Status: Acute
--- NOTE | 2017-09-18 18:32 | CP.PCM.PN ---
Subjective - Date & Time of Evaluation Date of Evaluation: 09/18/17 Time of Evaluation: 18:30 - Subjective Subjective: Patient seen in the room with family present doing very well just starting to be able to attempt to ambulate without AD not sleeping well was going to be given ambien but may be too drowsy in the -am will try zanaflex instead Objective - Vital Signs/Intake and Output Vital Signs (last 24 hours): Temp Pulse Resp BP Pulse Ox 98.5 F 64 20 110/66 98 09/18/17 08:40 09/18/17 08:40 09/18/17 08:40 09/18/17 08:40 09/18/17 08:40 - Medications Medications: Current Medications Acetaminophen (Tylenol 325mg Tab) 650 mg PO Q6 PRN PRN Reason: Headache Last Admin: 09/17/17 16:38 Dose: 650 mg Aspirin (Aspirin Chewable) 81 mg PO DAILY [facility] Last Admin: 09/18/17 08:32 Dose: 81 mg Clotrimazole (Lotrimin 1% Cream) 1 applic TOP BID [facility] Last Admin: 09/18/17 16:38 Dose: 1 applic Docusate Sodium (Colace) 100 mg PO BID [facility] Last Admin: 09/18/17 16:37 Dose: 100 mg Enoxaparin Sodium (Lovenox) 40 mg SC DAILY [facility] PRN Reason: Protocol Last Admin: 09/18/17 08:32 Dose: 40 mg Famotidine (Pepcid) 20 mg PO BID [facility] Last Admin: 09/18/17 16:37 Dose: 20 mg Magnesium Oxide (Mag-Ox) 400 mg PO BID [facility] Last Admin: 09/18/17 16:37 Dose: 400 mg Metoclopramide HCl (Reglan) 10 mg PO DAILY@1130 [facility] Last Admin: 09/18/17 12:23 Dose: 10 mg Multivitamins/Minerals (Therapeutic-M Tab) 1 tab PO DAILY [facility] Last Admin: 09/18/17 08:33 Dose: 1 tab Sennosides (Senokot Tab) 17.2 mg PO HS [facility] Last Admin: 09/17/17 21:15 Dose: 17.2 mg Valproate Sodium (Depakene Cap) 750 mg PO Q12 [facility] Last Admin: 09/18/17 08:32 Dose: 750 mg - Labs Labs: 09/18/17 06:30 09/18/17 06:30
--- NOTE | 2017-09-19 08:09 | CP.PCM.PN ---
Subjective - Date & Time of Evaluation Date of Evaluation: 09/19/17 Time of Evaluation: 08:08 - Subjective Subjective: doing wel, cont to improve w/ pt/ot no f/c, n/v/d. no pain or othercomplaints. pt requesting to bedc and antdc date is sat 09/21 Objective - Vital Signs/Intake and Output Vital Signs (last 24 hours): Temp Pulse Resp BP Pulse Ox 98.2 F 69 18 115/87 98 09/18/17 20:20 09/18/17 20:20 09/18/17 20:20 09/18/17 20:20 09/18/17 20:20 - Medications Medications: Current Medications Acetaminophen (Tylenol 325mg Tab) 650 mg PO Q6 PRN PRN Reason: Headache Last Admin: 09/17/17 16:38 Dose: 650 mg Aspirin (Aspirin Chewable) 81 mg PO DAILY [facility] Last Admin: 09/18/17 08:32 Dose: 81 mg Clotrimazole (Lotrimin 1% Cream) 1 applic TOP BID [facility] Last Admin: 09/18/17 16:38 Dose: 1 applic Docusate Sodium (Colace) 100 mg PO BID [facility] Last Admin: 09/18/17 16:37 Dose: 100 mg Enoxaparin Sodium (Lovenox) 40 mg SC DAILY [facility] PRN Reason: Protocol Last Admin: 09/18/17 08:32 Dose: 40 mg Famotidine (Pepcid) 20 mg PO BID [facility] Last Admin: 09/18/17 16:37 Dose: 20 mg Magnesium Oxide (Mag-Ox) 400 mg PO BID [facility] Last Admin: 09/18/17 16:37 Dose: 400 mg Metoclopramide HCl (Reglan) 10 mg PO DAILY@1130 [facility] Last Admin: 09/18/17 12:23 Dose: 10 mg Multivitamins/Minerals (Therapeutic-M Tab) 1 tab PO DAILY [facility] Last Admin: 09/18/17 08:33 Dose: 1 tab Sennosides (Senokot Tab) 17.2 mg PO HS [facility] Last Admin: 09/18/17 21:03 Dose: 17.2 mg Valproate Sodium (Depakene Cap) 750 mg PO Q12 [facility] Last Admin: 09/18/17 21:02 Dose: 750 mg - Labs Labs: 09/18/17 06:30 09/18/17 06:30 - Constitutional Appears: Well, Non-toxic, No Acute Distress - Head Exam Head Exam: ATRAUMATIC, NORMAL INSPECTION, NORMOCEPHALIC - Eye Exam Eye Exam: EOMI, Normal appearance, PERRL Pupil Exam: NORMAL ACCOMODATION, PERRL - ENT Exam ENT Exam: Mucous Membranes Moist, Normal Exam - Neck Exam Neck Exam: Full ROM, Normal Inspection. absent: Lymphadenopathy - Respiratory Exam Respiratory Exam: Clear to Ausculation Bilateral, NORMAL BREATHING PATTERN - Cardiovascular Exam Cardiovascular Exam: REGULAR RHYTHM, RRR, +S1, +S2. absent: Murmur - GI/Abdominal Exam GI & Abdominal Exam: Soft, Normal Bowel Sounds. absent: Tenderness - Extremities Exam Extremities Exam: Full ROM, Normal Capillary Refill, Normal Inspection. absent : Joint Swelling, Pedal Edema - Back Exam Back Exam: NORMAL INSPECTION - Neurological Exam Neurological Exam: Abnormal Gait, Alert, Awake, CN II-XII Intact, Oriented x3 Neuro motor strength exam: Left Upper Extremity: 4, Right Upper Extremity: 5, Left Lower Extremity: 4, Right Lower Extremity: 5 - Psychiatric Exam Psychiatric exam: Normal Affect, Normal Mood - Skin Skin Exam: Dry, Intact, Normal Color, Warm Assessment and Plan (1) DVT prophylaxis Status: Acute (2) Constipation Status: Acute (3) Brain tumor Status: Acute (4) CVA (cerebral vascular accident) Status: Acute - Assessment and Plan (Free Text) Assessment: (1) DVT prophylaxis Assessment and Plan: scd and ae hose lovenox Status: Acute (2) Constipation Assessment and Plan: resolved Status: Acute (3) Brain tumor Assessment and Plan: s/p craniotomy, here for rehab cont meds, obtain all records from [facility], neuro, antiepileptics monitor levels Status: Acute (4) CVA (cerebral vascular accident) Assessment and Plan: cont meds neuro consult appriciated pt/ot depakote, asa Status: Acute 5-blurry vision-resolved, ct normal, will follow nofurther episode psychology note appriciated. cont all therapies
[2017-09-19] MEDS: Enoxaparin 40 mg Syringe SC SCH (08:10)
[2017-09-19] MEDS: Magnesium Oxide 400 mg Tab UD PO SCH ×2 (08:11→17:23)
[2017-09-19] MEDS: Multivitamin With Minerals Tab PO SCH (08:13)
[2017-09-19 08:22] VITALS: RESP 20
--- NOTE | 2017-09-19 12:03 | CP.PCM.PN ---
Subjective - Date & Time of Evaluation Date of Evaluation: 09/19/17 Time of Evaluation: 12:03 - Subjective Subjective: Ms. Gomez was seen and examined at the bedside. She is alert, oriented in all spheres. She denies headache, dizziness, blurred vision, lightheadedness, nausea , or vomiting. She further claims of sleeping pill works well with her last night. She remains with mild left side droop, left upper extremity flaccidity, left lower extremity weakness which is it improving. She is able to raise minimally her left LLE. She is on bilateral lower extremities SCD's and elizabeth stockings. There was no untoward events overnight. Objective - Vital Signs/Intake and Output Vital Signs (last 24 hours): Temp Pulse Resp BP Pulse Ox 98.8 F 70 20 114/70 98 09/19/17 08:21 09/19/17 08:21 09/19/17 08:21 09/19/17 08:21 09/19/17 08:21 - Medications Medications: Current Medications Acetaminophen (Tylenol 325mg Tab) 650 mg PO Q6 PRN PRN Reason: Headache Last Admin: 09/17/17 16:38 Dose: 650 mg Aspirin (Aspirin Chewable) 81 mg PO DAILY [facility] Last Admin: 09/19/17 08:11 Dose: 81 mg Clotrimazole (Lotrimin 1% Cream) 1 applic TOP BID [facility] Last Admin: 09/19/17 08:10 Dose: 1 applic Docusate Sodium (Colace) 100 mg PO BID [facility] Last Admin: 09/19/17 08:10 Dose: 100 mg Enoxaparin Sodium (Lovenox) 40 mg SC DAILY [facility] PRN Reason: Protocol Last Admin: 09/19/17 08:10 Dose: 40 mg Famotidine (Pepcid) 20 mg PO BID [facility] Last Admin: 09/19/17 08:12 Dose: 20 mg Magnesium Oxide (Mag-Ox) 400 mg PO BID [facility] Last Admin: 09/19/17 08:11 Dose: 400 mg Metoclopramide HCl (Reglan) 10 mg PO DAILY@1130 [facility] Last Admin: 09/19/17 11:59 Dose: 10 mg Multivitamins/Minerals (Therapeutic-M Tab) 1 tab PO DAILY [facility] Last Admin: 09/19/17 08:13 Dose: 1 tab Sennosides (Senokot Tab) 17.2 mg PO HS [facility] Last Admin: 09/18/17 21:03 Dose: 17.2 mg Valproate Sodium (Depakene Cap) 750 mg PO Q12 [facility] Last Admin: 09/19/17 08:12 Dose: 750 mg - Labs Labs: 09/18/17 06:30 09/18/17 06:30 - Constitutional Appears: No Acute Distress - Head Exam Head Exam: NORMAL INSPECTION - Neurological Exam Neurological Exam: Alert, Awake, Oriented x3 Neuro motor strength exam: Left Upper Extremity: 0, Right Upper Extremity: 5, Left Lower Extremity: 3, Right Lower Extremity: 5 Additional comments: Neurological unchanged from previous examination. Assessment and Plan (1) CVA (cerebral vascular accident) Assessment & Plan: Case discussed with Dr. Rodriguez, continue all current medical including AED, physical, occupational, and speech therapies. Recommend to monitor valproic level prior to discharge.Recommend to follow up with Dr. Montes at [address] [facility] [address]. [facility] [address] tel. [phone] Status: Acute
[2017-09-20 07:16] LABS: DILANTIN (PHENYTOIN) < 3.0 ug/ML (10-20)
[2017-09-20 07:20] LABS: ALB/GLOB RATIO 1.1 (1.0-2.1); ALBUMIN 3.4 g/dL (3.5-5.0); ALT/SGPT 39 U/L (9-52); AST/SGOT 24 U/L (14-36); BLOOD UREA NITROGEN 18 mg/dl (7-17); CALCIUM 8.8 mg/dL (8.4-10.2); GFR AFRICAN-AMERICAN > 60; GFR NON-AFRICAN AMERICAN > 60
[2017-09-20 07:24] LABS: BASO % 0.8 % (0.0-2.0); EOS # 0.1 K/uL (0.0-0.7); EOS % 1.8 % (0.0-4.0); HEMOGLOBIN 12.5 g/dL (12.0-16.0); LYMPH # 1.1 K/uL (1.0-4.3); LYMPH % 27.9 % (20.0-40.0); MEAN CELL VOLUME 90.9 fl (81.0-99.0); MEAN CORPUSCULAR HGB CONC 35.2 g/dL (33.0-37.0); MEAN PLATELET VOLUME 10.1 fl (7.2-11.7); MONO # 0.4 K/uL (0.0-0.8); MONO % 9.3 % (0.0-10.0); NEUT # 2.4 K/uL (1.8-7.0); NEUT % 60.2 % (50.0-75.0); NRBC % 0.1 % (0.0-0.0); RBC 3.9 Mil/uL (3.80-5.20); RED CELL DISTRIBUTION WIDTH 13.5 % (11.5-14.5); WHITE BLOOD COUNT 3.9 K/uL (4.8-10.8)
[2017-09-20] MEDS: Enoxaparin 40 mg Syringe SC SCH (08:25)
[2017-09-20] MEDS: Magnesium Oxide 400 mg Tab UD PO SCH ×2 (08:25→16:40)
[2017-09-20] MEDS: Multivitamin With Minerals Tab PO SCH (08:26)
--- NOTE | 2017-09-20 09:58 | CP.PCM.PN ---
Subjective - Date & Time of Evaluation Date of Evaluation: 09/20/17 Time of Evaluation: 09:57 - Subjective Subjective: Patient seen in the room and doing well left UE with trace synergistic movement nothing distal left LE 4/5 strength she feels the leg is back 80% from normal set for d/c home tomorrow has had an excellent stay Objective - Vital Signs/Intake and Output Vital Signs (last 24 hours): Temp Pulse Resp BP Pulse Ox 97.3 F L 70 20 124/65 98 09/20/17 08:00 09/20/17 08:00 09/20/17 08:00 09/20/17 08:00 09/20/17 08:00 - Medications Medications: Current Medications Acetaminophen (Tylenol 325mg Tab) 650 mg PO Q6 PRN PRN Reason: Headache Last Admin: 09/17/17 16:38 Dose: 650 mg Aspirin (Aspirin Chewable) 81 mg PO DAILY [facility] Last Admin: 09/20/17 08:26 Dose: 81 mg Clotrimazole (Lotrimin 1% Cream) 1 applic TOP BID [facility] Last Admin: 09/20/17 08:25 Dose: 1 applic Docusate Sodium (Colace) 100 mg PO BID [facility] Last Admin: 09/20/17 08:25 Dose: 100 mg Enoxaparin Sodium (Lovenox) 40 mg SC DAILY [facility] PRN Reason: Protocol Last Admin: 09/20/17 08:25 Dose: 40 mg Famotidine (Pepcid) 20 mg PO BID [facility] Last Admin: 09/20/17 08:25 Dose: 20 mg Magnesium Oxide (Mag-Ox) 400 mg PO BID [facility] Last Admin: 09/20/17 08:25 Dose: 400 mg Metoclopramide HCl (Reglan) 10 mg PO DAILY@1130 [facility] Last Admin: 09/19/17 11:59 Dose: 10 mg Multivitamins/Minerals (Therapeutic-M Tab) 1 tab PO DAILY [facility] Last Admin: 09/20/17 08:26 Dose: 1 tab Sennosides (Senokot Tab) 17.2 mg PO HS [facility] Last Admin: 09/19/17 21:21 Dose: 17.2 mg Tizanidine HCl (Zanaflex) 4 mg PO 2100 PRN PRN Reason: Insomnia Last Admin: 09/19/17 21:15 Dose: 4 mg Valproate Sodium (Depakene Cap) 750 mg PO Q12 [facility] Last Admin: 09/20/17 08:26 Dose: 750 mg - Labs Labs: 09/20/17 06:45 09/20/17 06:45
--- NOTE | 2017-09-20 12:07 | CP.PCM.PN ---
Subjective - Date & Time of Evaluation Date of Evaluation: 09/20/17 Time of Evaluation: 12:07 - Subjective Subjective: Ms. Gomez was seen and examined at the bedside. She is alert, oriented in all spheres. She denies headache, dizziness, blurred vision, lightheadedness, nausea , or vomiting. She further claims of sleeping pill works well with her last night. She remains with mild left side droop, left upper extremity flaccidity, left lower extremity weakness which is it improving. She is able to maneuver herself using wheelchair. She is also excited of going home karmen. She is able to raise minimally her left LLE. She is on bilateral lower extremities SCD's and elizabeth stockings. There was no untoward events overnight. Objective - Vital Signs/Intake and Output Vital Signs (last 24 hours): Temp Pulse Resp BP Pulse Ox 97.3 F L 70 20 124/65 98 09/20/17 08:00 09/20/17 08:00 09/20/17 08:00 09/20/17 08:00 09/20/17 08:00 - Medications Medications: Current Medications Acetaminophen (Tylenol 325mg Tab) 650 mg PO Q6 PRN PRN Reason: Headache Last Admin: 09/17/17 16:38 Dose: 650 mg Aspirin (Aspirin Chewable) 81 mg PO DAILY [facility] Last Admin: 09/20/17 08:26 Dose: 81 mg Clotrimazole (Lotrimin 1% Cream) 1 applic TOP BID [facility] Last Admin: 09/20/17 08:25 Dose: 1 applic Docusate Sodium (Colace) 100 mg PO BID [facility] Last Admin: 09/20/17 08:25 Dose: 100 mg Enoxaparin Sodium (Lovenox) 40 mg SC DAILY [facility] PRN Reason: Protocol Last Admin: 09/20/17 08:25 Dose: 40 mg Famotidine (Pepcid) 20 mg PO BID [facility] Last Admin: 09/20/17 08:25 Dose: 20 mg Magnesium Oxide (Mag-Ox) 400 mg PO BID [facility] Last Admin: 09/20/17 08:25 Dose: 400 mg Metoclopramide HCl (Reglan) 10 mg PO DAILY@1130 [facility] Last Admin: 09/19/17 11:59 Dose: 10 mg Multivitamins/Minerals (Therapeutic-M Tab) 1 tab PO DAILY [facility] Last Admin: 09/20/17 08:26 Dose: 1 tab Sennosides (Senokot Tab) 17.2 mg PO HS [facility] Last Admin: 09/19/17 21:21 Dose: 17.2 mg Tizanidine HCl (Zanaflex) 4 mg PO 2100 PRN PRN Reason: Insomnia Last Admin: 09/19/17 21:15 Dose: 4 mg Valproate Sodium (Depakene Cap) 750 mg PO Q12 [facility] Last Admin: 09/20/17 08:26 Dose: 750 mg - Labs Labs: 09/20/17 06:45 09/20/17 06:45 - Constitutional Appears: No Acute Distress - Head Exam Head Exam: NORMAL INSPECTION - Neurological Exam Neurological Exam: Alert, Awake, Oriented x3 Neuro motor strength exam: Left Upper Extremity: 0, Right Upper Extremity: 5, Left Lower Extremity: 3, Right Lower Extremity: 5 Additional comments: Neurological unchanged from previous examination. Assessment and Plan (1) CVA (cerebral vascular accident) Assessment & Plan: Case discussed with Dr. Rodriguez, continue all current medical including AED, physical, occupational, and speech therapies. Recommend to monitor valproic level prior to discharge.Recommend to follow up with Dr. Montes at [address] [facility] [address]. [facility] [address] tel. [phone] Status: Acute
[2017-09-21] MEDS: Multivitamin With Minerals Tab PO SCH (09:06)
[2017-09-21] MEDS: Enoxaparin 40 mg Syringe SC SCH (09:07)
[2017-09-21] MEDS: Magnesium Oxide 400 mg Tab UD PO SCH (09:08)
[2017-09-21 09:44] VITALS: BP 107/71; PULSE 73; TEMP 98.9; O2SAT 97
--- NOTE | 2017-09-21 14:29 | CP.PCM.DIS ---
Provider - Provider Date of Admission: 08/30/17 13:23 Attending physician: Donte Perez MD Time Spent in preparation of Discharge (in minutes): 15 Diagnosis - Discharge Diagnosis (1) DVT prophylaxis Status: Acute (2) Constipation Status: Acute (3) Brain tumor Status: Acute (4) CVA (cerebral vascular accident) Status: Acute Priority: High Hospital Course - Lab Results Lab Results: Most Recent Lab Values WBC 3.9 K/uL (4.8-10.8) L 09/20/17 06:45 RBC 3.90 Mil/uL (3.80-5.20) 09/20/17 06:45 Hgb 12.5 g/dL (12.0-16.0) 09/20/17 06:45 Hct 35.4 % (34.0-47.0) 09/20/17 06:45 MCV 90.9 fl (81.0-99.0) 09/20/17 06:45 MCH 32.0 pg (27.0-31.0) H 09/20/17 06:45 MCHC 35.2 g/dL (33.0-37.0) 09/20/17 06:45 RDW 13.5 % (11.5-14.5) 09/20/17 06:45 Plt Count 124 K/uL (130-400) L 09/20/17 06:45 MPV 10.1 fl (7.2-11.7) 09/20/17 06:45 Neut % (Auto) 60.2 % (50.0-75.0) 09/20/17 06:45 Lymph % (Auto) 27.9 % (20.0-40.0) 09/20/17 06:45 [place] % (Auto) 9.3 % (0.0-10.0) 09/20/17 06:45 Eos % (Auto) 1.8 % (0.0-4.0) 09/20/17 06:45 Baso % (Auto) 0.8 % (0.0-2.0) 09/20/17 06:45 Neut # (Auto) 2.4 K/uL (1.8-7.0) 09/20/17 06:45 Lymph # (Auto) 1.1 K/uL (1.0-4.3) 09/20/17 06:45 [place] # (Auto) 0.4 K/uL (0.0-0.8) 09/20/17 06:45 Eos # (Auto) 0.1 K/uL (0.0-0.7) 09/20/17 06:45 Baso # (Auto) 0.0 K/uL (0.0-0.2) 09/20/17 06:45 Sodium 143 mmol/l (132-148) 09/20/17 06:45 Potassium 3.8 MMOL/L (3.6-5.0) 09/20/17 06:45 Chloride 104 mmol/L (98-107) 09/20/17 06:45 Carbon Dioxide 26 mmol/L (22-30) 09/20/17 06:45 Anion Gap 17 (10-20) 09/20/17 06:45 BUN 18 mg/dl (7-17) H 09/20/17 06:45 Creatinine 0.8 mg/dl (0.7-1.2) 09/20/17 06:45 Est GFR ( Amer) > 60 09/20/17 06:45 Est GFR (Non-Af Amer) > 60 09/20/17 06:45 Random Glucose 88 mg/dL (65-105) 09/20/17 06:45 Calcium 8.8 mg/dL (8.4-10.2) 09/20/17 06:45 Total Bilirubin 0.4 mg/dl (0.2-1.3) 09/20/17 06:45 AST 24 U/L (14-36) 09/20/17 06:45 ALT 39 U/L (9-52) 09/20/17 06:45 Alkaline Phosphatase 46 U/L (38-126) 09/20/17 06:45 Total Protein 6.6 G/DL (6.3-8.2) 09/20/17 06:45 Albumin 3.4 g/dL (3.5-5.0) L 09/20/17 06:45 Globulin 3.2 gm/dL (2.2-3.9) 09/20/17 06:45 Albumin/Globulin Ratio 1.1 (1.0-2.1) 09/20/17 06:45 Phenytoin < 3.0 ug/ML (10-20) L 09/20/17 06:45 Valproic Acid 76.0 ug/mL (50.0-100.0) 09/20/17 06:45 - Hospital Course Hospital Course: pt/ot physiatry/neuro optho Discharge Exam - Head Exam Head Exam: NORMAL INSPECTION Discharge Plan - Discharge Medications Prescriptions: Acetaminophen [Tylenol 325mg tab] 650 mg PO Q6 PRN #30 tab PRN Reason: Headache Aspirin [Aspirin Chewable] 81 mg PO DAILY #30 chew Clotrimazole 1% Cream [Lotrimin 1% CREAM] 1 applic TOP BID #1 tube Magnesium Oxide [Mag-Ox] 400 mg PO BID #60 tab Metoclopramide [Reglan] 10 mg PO DAILY@1130 PRN #30 tab PRN Reason: Nausea/Vomiting Valproic Acid Cap [Depakene Cap] 750 mg PO Q12 #60 sgl - Follow Up Plan Condition: GOOD Disposition: HOME/ ROUTINE Instructions: Stroke (DC), Seizures, Adult (DC), Aspirin, Magnesium Oxide, Metoclopramide, Valproic Acid and Derivatives, Craniotomy (DC) Additional Instructions: doing well, improved use of lue/lle no numbness/tingling/blurry vision f/u rmg, neuro, neurosurg outpt pt/ot meds pe rmed medrec, meds e-rx
--- NOTE | 2017-09-21 19:07 | CP.PCM.PN ---
Subjective - Date & Time of Evaluation Date of Evaluation: 09/21/17 Time of Evaluation: 10:00 - Subjective Subjective: no acute complaints at present Objective - Vital Signs/Intake and Output Vital Signs (last 24 hours): Temp Pulse Resp BP Pulse Ox 98.9 F 73 20 107/71 97 09/21/17 09:43 09/21/17 09:43 09/21/17 09:43 09/21/17 09:43 09/21/17 09:43 - Labs Labs: 09/20/17 06:45 09/20/17 06:45 - Head Exam Head Exam: ATRAUMATIC, NORMAL INSPECTION, NORMOCEPHALIC - Eye Exam Eye Exam: EOMI, Normal appearance Pupil Exam: NORMAL ACCOMODATION, PERRL - ENT Exam ENT Exam: Mucous Membranes Moist, Normal Exam - Neck Exam Neck Exam: Full ROM, Normal Inspection - Respiratory Exam Respiratory Exam: Clear to Ausculation Bilateral, NORMAL BREATHING PATTERN - Cardiovascular Exam Cardiovascular Exam: REGULAR RHYTHM - GI/Abdominal Exam GI & Abdominal Exam: Soft, Normal Bowel Sounds - Rectal Exam Rectal Exam: NORMAL INSPECTION - Exam External exam: NORMAL EXTERNAL EXAM - Extremities Exam Extremities Exam: Normal Capillary Refill, Normal Inspection - Back Exam Back Exam: NORMAL INSPECTION - Neurological Exam Neurological Exam: Alert, Awake Additional comments: weakness - Psychiatric Exam Psychiatric exam: Normal Affect, Normal Mood - Skin Skin Exam: Dry, Normal Color, Warm Assessment and Plan (1) Constipation Status: Acute (2) DVT prophylaxis Status: Acute (3) Brain tumor Status: Acute (4) CVA (cerebral vascular accident) Assessment & Plan: status post physical, occupational therapy patient for discharge covering for Dr Lee for today Status: Acute (5) Dizziness Status: Acute (6) Headache Status: Acute (7) Otitis externa Status: Acute
== END 2017-09-21 11:40 | disposition home or self-care (01) | DRG 11 ==
PROVIDERS: ADMIT Family Medicine; ATTEND Family Medicine
PROC: F07M6FZ Therapeutic Exercise Treatment of Musculoskeletal System - Whole Body using Assistive, Adaptive, Supportive or Protective Equipment (ICD-10-PCS; principal; 2017-08-30)
PROC: F08Z4FZ Home Management Treatment using Assistive, Adaptive, Supportive or Protective Equipment (ICD-10-PCS; 2017-08-30)
DX: C71.9 Malignant neoplasm of brain, unspecified (principal); D32.0 Benign neoplasm of cerebral meninges; E78.00 Pure hypercholesterolemia, unspecified; F32.9 Major depressive disorder, single episode, unspecified; I69.354 Hemiplegia and hemiparesis following cerebral infarction affecting left non-dominant side; H10.9 Unspecified conjunctivitis; H66.90 Otitis media, unspecified, unspecified ear; I10 Essential (primary) hypertension; K59.00 Constipation, unspecified; Z87.891 Personal history of nicotine dependence; F41.9 Anxiety disorder, unspecified; G43.909 Migraine, unspecified, not intractable, without status migrainosus; R60.9 Edema, unspecified; H53.8 Other visual disturbances; R11.2 Nausea with vomiting, unspecified; R21 Rash and other nonspecific skin eruption

== ENCOUNTER 2017-12-14 17:51 | Emergency (ER) | payer MEDICAID ==
[2017-12-14 17:51] VITALS: BMI 31.8
[2017-12-14 18:07] VITALS: RESP 16; TEMP 99
--- NOTE | 2017-12-14 18:49 | ED PDOC ---
Upper Extremity Pain/Injury Time Seen by Provider: 12/14/17 18:29 Chief Complaint (Nursing): Upper Extremity Problem/Injury Chief Complaint (Provider): Left shoulder pain History Per: Patient History/Exam Limitations: no limitations Onset/Duration Of Symptoms: Persistent Current Symptoms Are (Timing): Still Present Quality: "Pain" Additional History Per: Patient Additional Complaint(s): 51yo female, comes to ER for evaluation of left shoulder pain since she had brain surgery in August of this year. She reports the pain worsens with movement and is unrelieved with Relefen. She has not yet gone to physical therapy as her insurance had a lapse but states she will be going soon as the insurance issues have been solved. She reports numbness and weakness to her left upper extremity , which is chronic. Otherwise, no new trauma, chest pain or shortness of breath. Past Medical History Reviewed: Historical Data, Nursing Documentation, Vital Signs Vital Signs: Last Vital Signs Temp 99 F 12/14/17 18:01 Pulse 74 12/14/17 18:01 Resp 16 12/14/17 18:01 BP Pulse Ox 99 12/14/17 18:01 - Medical History PMH: Anxiety, HTN, Hypercholesterolemia, Migraine Denies: HIV - Surgical History Other surgeries: brain surgery - Family History Family History: States: Unknown Family Hx - Home Medications Home Medications: Ambulatory Orders Medication Instructions Recorded Dexamethasone [Decadron] 4 mg PO Q12 08/30/17 Docusate Sodium [Colace] 100 mg PO BID 08/30/17 Famotidine [Pepcid] 20 mg PO BID 08/30/17 Multivitamin [Daily Madai] 1 tab PO DAILY 08/30/17 Phenytoin, Extended [Dilantin] 100 mg PO Q8 08/30/17 Sennosides [Senokot] 17.2 mg PO HS 08/30/17 Acetaminophen [Tylenol 325mg tab] 650 mg PO Q6 PRN #30 tab 09/19/17 Aspirin [Aspirin Chewable] 81 mg PO DAILY #30 chew 09/19/17 Clotrimazole 1% Cream [Lotrimin 1% 1 applic TOP BID #1 tube 09/19/17 CREAM] Magnesium Oxide [Mag-Ox] 400 mg PO BID #60 tab 09/19/17 Metoclopramide [Reglan] 10 mg PO DAILY@1130 PRN #30 tab 09/19/17 Valproic Acid Cap [Depakene Cap] 750 mg PO Q12 #60 sgl 09/19/17 traMADol [Ultram] 50 mg PO Q6 PRN #12 tab 12/14/17 - Allergies Allergies/Adverse Reactions: Allergies Allergy/AdvReac Type Severity Reaction Status Date / Time levetiracetam [From Kera] AdvReac Mild TACHYCARDIA Verified 08/30/17 13:42 AND DIZZINESS Review of Systems ROS Statement: Except As Marked, All Systems Reviewed And Found Negative Constitutional: Negative for: Fever, Chills Cardiovascular: Negative for: Chest Pain Respiratory: Negative for: Shortness of Breath Musculoskeletal: Positive for: Shoulder Pain (left) Neurological: Positive for: Weakness, Numbness Physical Exam - Reviewed Nursing Documentation Reviewed: Yes Vital Signs Reviewed: Yes - Physical Exam Appears: Positive for: Non-toxic Head Exam: Positive for: ATRAUMATIC, NORMAL INSPECTION, NORMOCEPHALIC Skin: Positive for: Normal Color Eye Exam: Positive for: Normal appearance Neck: Positive for: Supple Cardiovascular/Chest: Positive for: Regular Rate, Rhythm Respiratory: Positive for: Normal Breath Sounds Pulses-Radial (L): 2+ Pulses-Radial (R): 2+ Extremity: Positive for: Tenderness (tenderness to left lateral superior shoulder), Capillary Refill (< 2 seconds). Negative for: Normal ROM (decreased ROM left shoulder secondary to pain), Deformity Neurologic/Psych: Positive for: Alert, Oriented, Motor/Sensory Deficits ( decreased sensation to left upper extremity; chronic) - ECG O2 Sat by Pulse Oximetry: 99 (RA) Pulse Ox Interpretation: Normal Medical Decision Making Medical Decision Making: Impression: Left shoulder pain, acute on chronic Plan: -- XR Left shoulder -- EKG -- Percocet 1 tab PO 1900 Patient signed out to Dr. Kelly pending XR, reassesment. Scribe Attestation: Documented by Lucretia Lynne, acting as a scribe for Gricelda Thomas MD. Provider Scribe Attestation: All medical record entries made by the Scribe were at my direction and personally dictated by me. I have reviewed the chart and agree that the record accurately reflects my personal performance of the history, physical exam, medical decision making, and the department course for this patient. I have also personally directed, reviewed, and agree with the discharge instructions and disposition. Disposition - Clinical Impression Clinical Impression: Shoulder pain - Patient ED Disposition Is Patient to be Admitted: Transfer of Care - Disposition Disposition: Transfer of Care Disposition Time: 19:00 Condition: STABLE Prescriptions: traMADol [Ultram] 50 mg PO Q6 PRN #12 tab PRN Reason: shoulder pain Instructions: Shoulder Pain (DC) Forms: [facility] (Icelandic) Patient Signed Over To: Daniel Kelly
[2017-12-14] MEDS ORDERED: Oxycodone/Acetaminophen 5/325 mg Tab PO STA (18:54)
--- NOTE | 2017-12-14 19:15 | ED PDOC ---
- ECG O2 Sat by Pulse Oximetry: 99 (RA) Pulse Ox Interpretation: Normal Medical Decision Making Medical Decision Makin Patient signed out to me by Dr. Thomas pending XR studies, reassessment. 2100 XR Shoulder reviewed with no clinically significant abnormalities. Patient reports mild improvement in pain. Patient will follow up with PMD Dr. Ceja at [facility]. Patient given prescription for ultram and instructed to continue her nebumatone at home Diagnosis: Left shoulder pain. Scribe Attestation: Documented by Lucretia Lynne, acting as a scribe for Daniel Kelly MD. Provider Scribe Attestation: All medical record entries made by the Scribe were at my direction and personally dictated by me. I have reviewed the chart and agree that the record accurately reflects my personal performance of the history, physical exam, medical decision making, and the department course for this patient. I have also personally directed, reviewed, and agree with the discharge instructions and disposition. Disposition - Clinical Impression Clinical Impression: Shoulder pain - POA Present On Arrival: None - Disposition Disposition: Routine/Home Disposition Time: 21:00 Condition: STABLE Prescriptions: traMADol [Ultram] 50 mg PO Q6 PRN #12 tab PRN Reason: shoulder pain Instructions: Shoulder Pain (DC) Forms: [employer] (Divehi)
[2017-12-14] MEDS ORDERED: Oxycodone/Acetaminophen 5/325 mg Tab ONE (20:23)
[2017-12-14 23:00] VITALS: BP 127/73; PULSE 72
--- NOTE | 2017-12-15 09:12 | RAD ---
Date of service: 12/14/2017 PROCEDURE: Radiographs of the Left Shoulder HISTORY: Shoulder pain COMPARISON: No prior. FINDINGS: BONES: Questionable acromial fracture. JOINTS: Unremarkable. SOFT TISSUES: Normal. OTHER FINDINGS: None. IMPRESSION: Questionable fracture of the acromion. ER notification submitted electronically.
--- NOTE | 2017-12-15 18:24 | CARD ---
APPROVED REPORT Date of service: 12/14/2017 EKG Measurement Heart [id number] <Conclusion> Normal sinus rhythm Normal ECG
[2017-12-16 09:49] VITALS: O2SAT 99
== END 2017-12-14 21:02 | disposition home or self-care (01) ==
LOC: H.ER 17:51
DX: M25.512 Pain in left shoulder (principal); G89.29 Other chronic pain; Z79.82 Long term (current) use of aspirin; I10 Essential (primary) hypertension; E78.00 Pure hypercholesterolemia, unspecified

== ENCOUNTER 2018-04-22 14:44 | Emergency (ER) | payer MEDICARE, MEDICAID ==
[2018-04-22 14:45] VITALS: BMI 31.8
[2018-04-22 14:52] VITALS: RESP 18; O2SAT 100
[2018-04-22] MEDS ORDERED: Lidocaine 2% w Epi 1:100,000 Inj IJ STA (16:35)
[2018-04-22] MEDS ORDERED: Povidone Iodine Topical 10% Sol ONE (16:38)
[2018-04-22] MEDS ORDERED: Povidone Iodine Oint 10% Foilpak UD ONE (16:43)
[2018-04-22] MEDS ORDERED: Oxycodone/Acetaminophen 5/325 mg Tab PO ONE (17:13)
--- NOTE | 2018-04-22 17:32 | ED PDOC ---
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 Pt states that approximately 3 weeks ago, she began noticing a pimple under her Right arm that she popped and removed some pus. It recurred and continued to grow over the past couple of weeks so she decided to come in for evaluation as it was becoming painful. Denies fever, chills, night sweats. Past Medical History Reviewed: Historical Data, Nursing Documentation, Vital Signs Vital Signs: Last Vital Signs Temp 97.9 F 04/22/18 14:49 Pulse 79 04/22/18 14:49 Resp 18 04/22/18 14:49 BP 155/84 H 04/22/18 14:49 Pulse Ox 100 04/22/18 14:49 - Medical History PMH: Anxiety, HTN, Hypercholesterolemia, Migraine Denies: HIV - Surgical History Surgical History: No Surg Hx - Family History Family History: States: Unknown Family Hx - Home Medications Home Medications: Ambulatory Orders Medication Instructions Recorded Dexamethasone [Decadron] 4 mg PO Q12 08/30/17 Docusate Sodium [Colace] 100 mg PO BID 08/30/17 Famotidine [Pepcid] 20 mg PO BID 08/30/17 Multivitamin [Daily Madai] 1 tab PO DAILY 08/30/17 Phenytoin, Extended [Dilantin] 100 mg PO Q8 08/30/17 Sennosides [Senokot] 17.2 mg PO HS 08/30/17 Acetaminophen [Tylenol 325mg tab] 650 mg PO Q6 PRN #30 tab 09/19/17 Aspirin [Aspirin Chewable] 81 mg PO DAILY #30 chew 09/19/17 Clotrimazole 1% Cream [Lotrimin 1% 1 applic TOP BID #1 tube 09/19/17 CREAM] Magnesium Oxide [Mag-Ox] 400 mg PO BID #60 tab 09/19/17 Metoclopramide [Reglan] 10 mg PO DAILY@1130 PRN #30 tab 09/19/17 Valproic Acid Cap [Depakene Cap] 750 mg PO Q12 #60 sgl 09/19/17 traMADol [Ultram] 50 mg PO Q6 PRN #12 tab 12/14/17 Cephalexin [Keflex] 500 mg PO QID 7 Days cap 04/22/18 - Allergies Allergies/Adverse Reactions: Allergies Allergy/AdvReac Type Severity Reaction Status Date / Time levetiracetam [From Keppra] AdvReac Mild TACHYCARDIA Verified 04/22/18 14:49 AND DIZZINESS Review of Systems ROS Statement: Except As Marked, All Systems Reviewed And Found Negative Physical Exam - Reviewed Nursing Documentation Reviewed: Yes Vital Signs Reviewed: Yes - Physical Exam Appears: Positive for: Non-toxic Skin: Negative for: Normal Color (+ approximately 4cm firm nodule under Right axilla w/ central lesion with pus, no erythema. Unable to manually express. ) - ECG O2 Sat by Pulse Oximetry: 100 (RA) Pulse Ox Interpretation: Normal Disposition - Clinical Impression Clinical Impression: Abscess - Patient ED Disposition Is Patient to be Admitted: No Counseled Patient/Family Regarding: Diagnosis, Need For Followup, Rx Given - Disposition Disposition: Routine/Home Disposition Time: 17:40 Condition: STABLE Additional Instructions: F/w with your primary care doctor Jey Arroyo or return to ER in 2 days to have packing removed. You can shower in 24hrs and clean area gently with soap and water. Take antibiotics as prescribed. Prescriptions: Cephalexin [Keflex] 500 mg PO QID 7 Days cap Instructions: Abscess Incision and Drainage (DC) Forms: [employer] (Yakut) Print Language: LATVIAN Procedure - Procedure and Findings -: Right axilla abscess cleaned with betadine 2% lido with epi approx 5cc for anesthesia 15 blade used and 2cm incision made with loculated white drainage expressed. Forceps used to break up loculation and further material expressed thereafter Packed with 1/4 packing.
[2018-04-22 17:51] VITALS: BP 142/77; PULSE 84; TEMP 98.1
== END 2018-04-22 17:45 | disposition home or self-care (01) ==
LOC: H.ER 14:44
DX: L02.411 Cutaneous abscess of right axilla (principal)